=== PATIENT | female | born 1965 | race Caucasian/White ===

== ENCOUNTER 2018-07-18 00:50 | Outpatient (CLI) | payer BC, SELFPAY ==
[2018-07-18 07:39] LABS: Abs Immature Grans 0.01 k/cumm (0.0-0.09); Absolute Basophil Count 0.02 k/cumm (0.0-0.2); Absolute Lymphocyte Count 2.23 k/cumm (1.2-3.4); Absolute Monocyte Count 0.41 k/cumm (0.11-0.7); Absolute Neutrophil Count 3.38 k/cumm (1.2-6.7); Basophils % 0.3; Eosinophils % 3.2; HCT 41.3 % (36.0-46.0); HGB 14.1 g/dL (12.0-15.5); Immature Grans % 0.2; Lymphocytes % 35.7; Mean Corp. HGB Concentration 34.1 g/dL (32.0-36.0); Mean Corpuscular Hemoglobin 28.9 pg (27.0-33.0); Mean Corpuscular Volume 84.6 fL (80-95); Mean Platelet Volume 9.6 fL (8.0-11.0); Monocytes % 6.6; Platelet Count 266 x1000/uL (130-400); RBC 4.88 m/cumm (4.00-5.20); RBC Distribution Width 12.8 % (11.7-14.6); White Blood Cell Count 6.25 k/cumm (4.4-10.8)
--- NOTE | 2018-07-18 07:55 | DI.MAMMO_ITS ---
SYMPTOM/DIAGNOSIS: SCREENING, Z12.31 MAMMOGRAM: Mammograms were interpreted according to the usual protocol including computer analysis with CAD system, tomosynthesis and C view imaging. Comparison with prior examinations. Breast density B. No masses or microcalcifications are seen. There is nothing to suggest malignancy. IMPRESSION: Negative mammogram. Routine screening is recommended. Category I. MQSA ASSESSMENT OF FINDINGS: Negative. Category 1. Patient will receive a letter notifying them of these results. BI-RADS category B. There are scattered areas of fibroglandular density.
[2018-07-18 08:46] LABS: ALT 52 U/L (12-78); AST 24 U/L (15-37); Albumin 3.9 g/dL (3.4-5.0); Alkaline Phosphatase 95 U/L (46-116); Anion Gap 8.6 mmol/L (3-11); BUN 19 mg/dL (7-18); Bilirubin, Total 0.4 mg/dL (0.2-1.0); CO2 25.4 mmol/L (21.0-32.0); CREATININE 0.68 mg/dL (0.55-1.02); Calcium 9.4 mg/dL (8.5-10.1); Chloride 107 mmol/L (98-107); Cholesterol 146 mg/dL (50-200); Glucose 125 mg/dL (70-100); HDL Cholesterol 46 mg/dL (40-60); LDL CHOLESTEROL 90 mg/dL (<100); Potassium 4.4 mmol/L (3.5-5.1); Sodium 141 mmol/L (136-145); TSH (W/Ref FT4) 0.03 uIU/mL (0.358-3.74); Total Protein 7.3 g/dL (6.4-8.2); Triglyceride 61 mg/dL (30-150)
== END 2018-07-18 01:10 ==
PROVIDERS: PCP Nurse Practitioner; Visit Provider Nurse Practitioner
DX: Z12.31 Encounter for screening mammogram for malignant neoplasm of breast (principal); E03.9 Hypothyroidism, unspecified; Z13.220 Encounter for screening for lipoid disorders
CPT/HCPCS: 36415; 77063; 77067; 80053; 80061; 83721; 84439; 84443; 85025

== ENCOUNTER 2018-07-23 10:30 | Outpatient (CLI) | payer BC, SELFPAY ==
[2018-07-23 13:26] LABS: Hemoglobin A1C 5.6 % (4.5-6.2)
[2018-07-23 14:31] LABS: TSH (W/Ref FT4) 0.04 uIU/mL (0.358-3.74)
[2018-07-23 16:19] LABS: FREE T4 1.46 ng/dL (0.76-1.46)
== END 2018-07-23 10:50 ==
PROVIDERS: PCP Nurse Practitioner; Visit Provider Nurse Practitioner
DX: R73.01 Impaired fasting glucose (principal)
CPT/HCPCS: 36415; 83036; 84439; 84443

== ENCOUNTER 2018-09-19 01:46 | Outpatient (CLI) | payer BC, SELFPAY ==
[2018-09-19 08:46] LABS: TSH (W/Ref FT4) 0.11 uIU/mL (0.358-3.74)
[2018-09-19 09:03] LABS: FREE T4 1.38 ng/dL (0.76-1.46)
== END 2018-09-19 02:06 ==
PROVIDERS: PCP Nurse Practitioner; Visit Provider Nurse Practitioner
DX: E03.9 Hypothyroidism, unspecified (principal)
CPT/HCPCS: 36415; 84439; 84443

== ENCOUNTER 2018-12-11 02:00 | Outpatient (CLI) | payer BC, SELFPAY | END 2018-12-11 02:20 | PROVIDERS: PCP Nurse Practitioner; Visit Provider Nurse Practitioner | DX: R69 Illness, unspecified (principal) | CPT/HCPCS: 36415; 84443 ==

== ENCOUNTER 2019-03-17 07:00 | Outpatient (CLI) | payer BC, SELFPAY ==
[2019-03-17 13:54] LABS: ALT 49 U/L (12-78); AST 24 U/L (15-37); Albumin 3.9 g/dL (3.4-5.0); Alkaline Phosphatase 116 U/L (46-116); Anion Gap 12.5 mmol/L (3-11); BUN 24 mg/dL (7-18); Bilirubin, Total 0.3 mg/dL (0.2-1.0); CO2 23.5 mmol/L (21.0-32.0); CREATININE 0.72 mg/dL (0.55-1.02); Calcium 9.6 mg/dL (8.5-10.1); Chloride 105 mmol/L (98-107); Cholesterol 167 mg/dL (50-200); Glucose 140 mg/dL (70-100); HDL Cholesterol 44 mg/dL (40-60); LDL CHOLESTEROL 103 mg/dL (<100); Sodium 141 mmol/L (136-145); TSH (W/Ref FT4) 0.11 uIU/mL (0.358-3.74); Total Protein 7.4 g/dL (6.4-8.2); Triglyceride 98 mg/dL (30-150)
[2019-03-17 14:10] LABS: FREE T4 1.28 ng/dL (0.76-1.46)
== END 2019-03-17 07:20 ==
PROVIDERS: PCP Nurse Practitioner; Visit Provider Nurse Practitioner
DX: E03.9 Hypothyroidism, unspecified (principal); E66.9 Obesity, unspecified; I10 Essential (primary) hypertension
CPT/HCPCS: 36415; 80053; 80061; 83721; 84439; 84443

== ENCOUNTER 2019-09-04 08:54 | Day surgery (SDC) | payer BC, SELFPAY ==
[2019-09-04 09:14] VITALS: BP 151/88; PULSE 61; RESP 18; TEMP 36.8; O2SAT 97
[2019-09-04 09:18] VITALS: BP 151/88; PULSE 61; RESP 18; TEMP 36.8; O2SAT 97
[2019-09-04] MEDS: Lactated Ringers 1,000 ML 80 ML IV (09:25)
--- NOTE | 2019-09-04 10:51 | W.COLOREPORT ---
Date of service: 09/04/19 Time of Service: 10:51 Colonoscopy Report Date of procedure: 09/04/19 Pre-op diagnosis general: S. polyps Post-op diagnosis procedure note: other (normal ) Procedure: CE Surgeon: Amber Diehl Anesthesia proc note operative: GETA Estimated blood loss (mL): 0 Pathology: none sent Complications: None Disposition: same day Prep: Miralax/Dulcolax Retraction Time: 12 mins Procedure Description: After informed consent was obtained the patient was taken to the procedure room and placed in a left decubitous position. Monitors were applied and a time out was done. The patients name, date of , procedure, allergies to medications and metal in their body was reviewed. The patient was then sedated. Once sedated and comfortable a rectal exam was done. External exam was normal. Internal exam revealed a normal sphincter tone and no palpable masses. The scope was then introduced and retrofelexed. No internal hemorrhoids were identified. The scope was then advanced to the cecum without difficulty. The TI and appendiceal orifice were identified. The prep was good. The scope was then slowly retracted over 10 minutes back into the rectum. no polyps/AVM's/diverticuls. the muscoas was pink and healthy. The scope was removed and the patient was woken up and taken back to Same day surgery in stable condition. The patient tolerated the procedure well and there were no immediate complications. Follow up: The patient should follow up in 10 years unless they develop changes in bowel habits or other new gastrointestinal complaints.
--- NOTE | 2019-09-04 10:52 | W.PM.DSUDISC ---
Discharge Plan Disposition Patient Disposition: HOME Condition: Good Discharge Details Reason For Visit: colon scope Attending Provider: Amber Diehl Primary Care Provider: Madina Oshea Home Meds and New Rx's Prescriptions: Continued levothyroxine 300 mcg tablet 300 mcg PO DAILY Qty: 90 RF: 3 ibuprofen 600 MG tablet 600 mg PO Q6H PRN (Reason: Pain) Qty: 20 RF: 0 Discontinued polyethylene glycol 3350 17 gram/dose powder 238 g PO ONCE Qty: 238 RF: 0 bisacodyl [Dulcolax (bisacodyl)] 5 mg tablet,delayed release (DR/EC) 5 mg PO ONCE Qty: 4 RF: 0 Discharge Instructions Instructions: High Fiber Diet (GEN) Additional Instructions: Findings:normal Follow up:repeat in 10 yrs time Please call if you develop: fevers >101.5 Nausea or Vomiting Abdominal pain that is not transient DAY SURGERY UNIT POST COLONOSCOPY INSTRUCTIONS 1. Because there will be medication in your system for the next 24 hours, you may feel a little sleepy. Your coordination will be affected. Therefore: a. Do not drive or operate dangerous equipment for 24 hours. b. Do not drink alcohol beverages for 24 hours (not even beer). c. Plan to go home and rest for the day. 2. Generally there are no restrictions on your activity after a day or so has gone by, but you may feel a bit fatigued for a few days. 3 After you arrive home you may have a light meal and return to a normal diet as you can tolerate it without feeling sick to your stomach. 4. After surgery, you may feel pain or discomfort. This should be only transient, but if it persists please contact your doctor. 5. If there are any questions regarding the findings of your procedure, please feel free to contact your doctor. 6. If you are unable to contact your doctor with a problem, contact the hospital at [phone]. 7. Continue all your regular medications unless directed otherwise. I understand the above instructions and have no questions. Signature of Patient or Responsible Adult Escort Date/Time Name of Responsible Adult Escort Signature of Nurse Date/Time Activity:: no heavy lifting or strenuous activity x 24 hrs Diet:: sm light meals today Discharge Orders Discharge Orders: Discharge Order (Routine); Ordered 09/04/19 Ordered By: Amber Diehl DS: Diagnosis Discharge Diagnosis (1) Adenoma of large intestine: Status: Acute
[2019-09-04 11:17] VITALS: BP 127/73; PULSE 54; RESP 16; TEMP 36.7; O2SAT 96
== END 2019-09-04 11:45 | disposition home or self-care (01) ==
PROVIDERS: PCP Nurse Practitioner; Visit Provider Surgery
PROC: 0DJD8ZZ Inspection of Lower Intestinal Tract, Via Natural or Artificial Opening Endoscopic (ICD-10-PCS; CPT 45378; principal; 2019-09-04 09:15)
DX: Z12.11 Encounter for screening for malignant neoplasm of colon (principal); Z86.010 Personal history of colon polyps
CPT/HCPCS: 45378

== ENCOUNTER 2019-10-09 01:44 | Outpatient (CLI) | payer BC, SELFPAY ==
[2019-10-09 14:57] LABS: CREATININE 0.56 mg/dL (0.55-1.02)
[2019-10-09] MEDS: Omnipaque 350 MG/ML 100 ML BTL IJ (15:33)
--- NOTE | 2019-10-09 15:35 | DI.CT_ITS ---
EXAM: CT HEAD WO/W CLINICAL HISTORY: SEVERE DIZZINESS WITH PERSISTENT L PARASETHIA OF SKIN, R42, R20.2 TECHNIQUE: Before and after IV contrast. 100 cc Omnipaque 350 IV. COMPARISON: No exams were available for comparison FINDINGS: No intracranial hemorrhage, mass or infarct is seen. The ventricles are normal size. There is no ev idence skull fracture. No abnormal enhancing lesions are seen. The sinuses and mastoid air cells ap pear clear. The orbits are unremarkable. IMPRESSION: Negative head CT.
== END 2019-10-09 02:04 ==
PROVIDERS: PCP Nurse Practitioner; Visit Provider Nurse Practitioner Adult Health
DX: R42 Dizziness and giddiness (principal); R20.2 Paresthesia of skin; Z51.81 Encounter for therapeutic drug level monitoring
CPT/HCPCS: 70470; 82565; J3490

== ENCOUNTER 2020-06-22 18:17 | Outpatient (REF) | payer BC, SELFPAY ==
--- NOTE | 2020-06-22 08:45 | PAPFT_PTH ---
PATIENT: Martha Hansen LOC: [facility] U#:[id number] AGE/SX: 54/F ROOM: RE06/22/[address]: Madina Oshea APRN : 1965 BED: DIS: 06/22/2020 SPEC #: [id number] RECD: 06/22/20 18:26 STATUS: SELENA REQ #: [id number] RIGO: 06/22/20 08:[address]: Madina Oseha DEPT: [facility] Cytology RECD BY: Ai Jarrett Tissues: 1 - CX/ENDOCX FOR PAP SMEARS Procedures: PAP THIN PREP/UVM Screening HPV DNA PROBE Comments: [id number]
== END 2020-06-22 18:37 ==
LOC: LBN 18:17
PROVIDERS: PCP Nurse Practitioner; Visit Provider Nurse Practitioner
DX: Z12.4 Encounter for screening for malignant neoplasm of cervix (principal)
CPT/HCPCS: 88142; 87624

== ENCOUNTER 2020-06-28 00:43 | Outpatient (CLI) | payer BC, SELFPAY ==
--- NOTE | 2020-06-28 13:15 | DI.MAMMO_ITS ---
EXAM: MAMMO SCREENING CLINICAL HISTORY: screening,Z12.39 TECHNIQUE: Mammograms were interpreted according to the usual protocol including computer analysis w [email or web address] CAD system, tomosynthesis and C-view imaging. FINDINGS: The breasts are of moderate density. No dominant mass or clumped microcalcification is identified in either breast. The current examination is compared with previous examinations including July 07 and there is increased prominence of focal area of asymmetric density projected centrally in the left breast on CC view with question of architectural distortion at this site. This is not convincin gly seen on MLO view. No other significant change seen in comparison with prior studies. IMPRESSION: Question interval development left breast architectural distortion/asymmetric density, neoplasm not e xcluded. Correlation with cc and MLO spot compression views of the left breast and left breast ultra sound recommended. BI-RADS Category 0 - Assessment Incomplete: Need additional imaging evaluation Breast Density - Category B - Scattered areas of fibroglandular density
== END 2020-06-28 01:03 ==
PROVIDERS: PCP Nurse Practitioner; Visit Provider Nurse Practitioner
DX: Z12.31 Encounter for screening mammogram for malignant neoplasm of breast (principal); R92.2 Inconclusive mammogram
CPT/HCPCS: 77063; 77067

== ENCOUNTER 2020-06-30 01:07 | Outpatient (CLI) | payer BC, SELFPAY ==
--- NOTE | 2020-06-30 | DI.US_ITS ---
EXAM: MG MAMMO SCREEN CALL BACK UNI CLINICAL HISTORY: F/U MAMMO, INCREASED ASYMMETRIC DENSITY TECHNIQUE: Mammograms were interpreted according to the usual protocol including computer analysis w [employer] CAD system, tomosynthesis and C-view imaging. COMPARISON: FINDINGS: Additional mammographic views of the left breast and left breast ultrasound are interpreted in conjun ction. These examinations were obtained to evaluate questionable area of architectural distortion th e 12 o'clock position the left breast seen on recent mammogram. Additional mammographic views includ ing CC and MLO spot compression views show persistent questionable new architectural distortion and a symmetric density in comparison with multiple previous mammograms. No clearly defined mass is seen. Breast ultrasound shows no evidence mass or cyst in this area. IMPRESSION: Interval development of an area architectural distortion/asymmetric density, 12 o'clock position left breast, 4-5 cm from the nipple. Biopsy recommended, stereotactic technique suggested due to lack of visualization on ultrasound. BI-RADS Category 4 - Suspicious Abnormality: Biopsy should be considered Breast Density - Category B - Scattered areas of fibroglandular density
== END 2020-06-30 01:27 ==
PROVIDERS: PCP Nurse Practitioner; Visit Provider Nurse Practitioner
DX: Z12.39 Encounter for other screening for malignant neoplasm of breast (principal); R92.2 Inconclusive mammogram; N64.89 Other specified disorders of breast
CPT/HCPCS: 76642; 77063; 77067

== ENCOUNTER 2020-09-21 01:50 | Outpatient (CLI) | payer BC, SELFPAY ==
[2020-09-21 09:28] LABS: ALT 86 U/L (14-59); AST 36 U/L (15-37); Albumin 4.2 g/dL (3.4-5.0); Alkaline Phosphatase 116 U/L (46-116); Anion Gap 9.7 mmol/L (3-11); BUN 15 mg/dL (7-18); Bilirubin, Total 0.5 mg/dL (0.2-1.0); CO2 25.3 mmol/L (21.0-32.0); CREATININE 0.71 mg/dL (0.55-1.02); Calcium 9.7 mg/dL (8.5-10.1); Calculated LDL 93 mg/dL (<100); Chloride 105 mmol/L (98-107); Cholesterol 148 mg/dL (<200); Glucose 118 mg/dL (74-106); HDL Cholesterol 47 mg/dL (40-60); Potassium 4.5 mmol/L (3.5-5.1); Sodium 140 mmol/L (136-145); TSH (W/Ref FT4) 0.05 uIU/mL (0.36-3.74); Total Protein 7.4 g/dL (6.4-8.2); Triglyceride 42 mg/dL (<150)
[2020-09-21 09:33] LABS: Hemoglobin A1C 5.6 % (<5.7)
[2020-09-21 09:49] LABS: FREE T4 1.49 ng/dL (0.76-1.46)
== END 2020-09-21 02:10 ==
PROVIDERS: PCP Nurse Practitioner; Visit Provider Nurse Practitioner
DX: E03.9 Hypothyroidism, unspecified (principal); R73.01 Impaired fasting glucose
CPT/HCPCS: 36415; 80053; 80061; 83036; 84439; 84443

== ENCOUNTER 2020-11-16 01:28 | Outpatient (CLI) | payer BC, SELFPAY ==
--- NOTE | 2020-11-16 10:11 | DI.US_ITS ---
APPROVED REPORT EXAM: Comprehensive 2D, Doppler, and color-flow Echocardiogram Patient Location: Out-Patient Clinical Appeals Auditor: Luly Michel RDCS (AE) Indications: Borderline Cardiomegaly on CT, Coronary Atherosclerosis Other Information Study Quality: Adequate Conclusion Normal left ventricular chamber size and wall thickness. Estimated ejection fraction is 60%. There ar e no segmental wall motion abnormalities Normal right ventricular size and systolic function Both atria are normal in size There are no structural valvular abnormalities Mild mitral regurgitation Trace to mild tricuspid regurgitation, normal estimated right ventricular systolic pressure Wall motion Left Ventricle The left ventricle is normal size. The left ventricular systolic function is normal. The left ventric ular ejection fraction is within the normal range. There is normal left ventricular wall thickness. T here is normal LV segmental wall motion. There is no ventricular septal defect visualized. LVEF is 60 %. Right Ventricle The right ventricle is normal size. The right ventricular systolic function is normal. The RVSP is 23 .9 mmHg. Atria The left atrium size is normal. The right atrium size is normal. The interatrial septum is intact wit h no evidence for an atrial septal defect. Aortic Valve The aortic valve is normal in structure. There is no aortic valvular stenosis. No aortic regurgitatio n is present. Mitral Valve The mitral valve is normal in structure. No evidence of mitral valve stenosis. Mild mitral regurgitat ion. Tricuspid Valve The tricuspid valve is normal in structure. There is no tricuspid valve stenosis. Trace to mild tricu spid regurgitation. Pulmonic Valve The pulmonary valve is normal in structure. There is no pulmonic valvular stenosis. There is no pulmo mariano valvular regurgitation. Great Vessels The aortic root is normal in size. The ascending aorta is normal in size. Aortic arch is normal in ca liber. IVC is normal in size and collapses >50% with inspiration. Pericardium There is no pericardial effusion. 2D Dimensions IVSD d PLAX 1.01 cm F: 0.6-1.0 LV Vol A2C d MOD 101.0 mL LVPW d PLAX 1.04 cm F: 0.6 - 1.0 LV Vol A4C d MOD 109.2 mL LVID d PLAX 4.79 cm F: 3.8 - 5.2 LA vol/ BSA A2C s A-L 25.1 mL/m2 LVDs 3.20 cm F: 2.2 - 3.5 LA vol/ BSA A4C s A-L 19.2 mL/m2 Ao Root d 2.87 cm F: 2.7 - 3.3 LA Vol/ BSA Biplane s A-L 23.3 mL/m2 RA Area A4C 12.05 cm2 LA Area A4C s MOD 16.42 cm2 RA Vol/ BSA A4C s A-L 13.7 mL/m2 LA Area A2C s MOD 17.70 cm2 Ao Asc Diam d 3.15 cm F: 2.3 - 3.1 LV EF A4C MOD 62.8 % LV EF Teichholz 60.4 % LV EF A2C MOD 59.0 % LVEF (Barbosa's) 60.84 % F: 54 - 74 LV EF Biplane MOD 60.8 % LV Volume 78.09 mL F: 46 - 106 SV 65.18 mL LV Volume Index 35.82 mL/m2 F: 29 - 61 SV Index 29.83 mL/m2 LV Vol Biplane MOD 107.1 mL FS 32.20 % M-Mode TAPSE 2.19 cm (M/F) >1.7 LV Diastology MV E' medial 0.082 (>0.07 m/s) E/A Ratio 0.8 LV E/e MED 7.65 (<14) MV E Vmax 0.63 (0.4-1.3 m/s) MV E' lateral 0.082 (>0.1 m/s) MV A Vmax 0.75 (0.4-1.3 m/s) LV E/e LAT 7.65 (<14) MV E/A Ratio 0.82 MV E/E' medial 7.68 MV E/E' lateral 7.68 Aortic Valve LVOT Area 3.33 cm2 AoV Area Vmax 2.89 cm2 LVOT Vmax 1.21 m/s AoV Area/ BSA (Vmax) 1.32 cm2/m2 LVOT Mean Shahram. 0.89 m/s RICHA Mean Shahram. 3.01 cm2 LVOT Peak Grad 5.9 mmHg RICHA Mean Shahram. Index 1.38 cm2/m2 LVOT Mean Grad 3.4 mmHg LVOT VTI 0.274 m LVOT Diam s 2.05 cm AoV Vmax 1.40 m/s Velocity Ratio 0.86 AoV Mean Shahram. 0.99 m/s AoV Peak Grad 7.8 mmHg LVOT SV 91.37 mL AoV Mean Grad 4.3 mmHg AoV VTI 0.295 m AoV Area VTI 3.10 cm2 AoV Area/ BSA (VTI) 1.42 cm/m2 Mitral Valve MV DT 275 (160-240 msec) MV PHT 80 msec MV Area PHT 2.76 cm2 MV VTI 0.295 m MV VTI Annulus 0.278 m MV Area VTI 2.94 (4.0-6.0 cm2) Pulmonary Valve PV Vmax 0.94 (0.5-1.5 m/s) RVOT Peak Gr. 2.65 mmHg PV Peak Grad 3.5 mmHg RVOT Mean Gr. 1.35 mmHg PV Mean Grad 2.0 mmHg RVOT VTI 0.183 m PV VTI 0.219 m RVOT Vmax 0.81 m/s Tricuspid Valve TR Peak Grad 20.9 mmHg TR Vmax 2.29 m/s RA Pressure 3.00 mmHg RVSP (TR) 23.9 mmHg
== END 2020-11-16 01:48 ==
PROVIDERS: PCP Nurse Practitioner; Visit Provider Nurse Practitioner
DX: I08.1 Rheumatic disorders of both mitral and tricuspid valves (principal); I25.10 Atherosclerotic heart disease of native coronary artery without angina pectoris; I51.7 Cardiomegaly
CPT/HCPCS: 93306

== ENCOUNTER 2020-11-26 08:01 | Outpatient (CLI) | payer BC, SELFPAY ==
[2020-11-28 10:23] LABS: COVID-19 RT-PCR Result NEGATIVE (Negative)
== END 2020-11-26 08:21 ==
PROVIDERS: PCP Nurse Practitioner; Visit Provider Family Medicine
DX: Z11.52 Encounter for screening for COVID-19 (principal); Z01.810 Encounter for preprocedural cardiovascular examination
CPT/HCPCS: U0003

== ENCOUNTER 2020-11-29 01:21 | Outpatient (CLI) | payer BC, SELFPAY ==
--- NOTE | 2020-11-29 08:00 | DI.NM_ITS ---
APPROVED REPORT Exam: Exercise Treadmill Patient Location: Out-Patient Room/Bed: Stress Nurse: Zhane Ortega RN Ordering Provider:KYLE CORDOVA, Contact Number: [phone] BMI: 37.58 Baseline Rhythm: Sinus Rhythm Comment: occ. PVC Indications: Coronary atherosclerosis on CT. Medical History Medical History: Hypothyroidism, Borderline cardiomegaly, Coronary atherosclerosis, Cancer. Cardiac Medications: None. Allergies: No known drug allergies Cardiac Risk Factors: Obesity Previous Cardiac Procedures: None. Pretest Chest Pain Characteristics: None. Exercise History: Physically active Physical Disabilities: None. Lung Sounds: Clear to auscultation (diminshed bases) Heart Sounds: Regular Stress Test Details Test: Exercise stress testing was performed using a Stephan protocol. Nuclear Acquisition: Rest Tc-99m/Stress Tc-99m 1 day Rest Isotope: Tc-99m Sestamibi. Dose: 14.5 Date: 11/29/20 Injection Time: 1145 Stress Isotope: Tc-99m Sestamibi. Dose: 45.1 Date: 11/29/20 Injection Time: 1425 HR Resting HR Supine: 65 bpm Max Heart Rate (APMHR): 163.347078 bpm Resting HR Standin bpm Target HR (85% APMHR): 138.936828 bpm Max HR Achieved: 156 bpm % of APMHR: 95.71 Recovery HR: 77 bpm HR response to stress: Normal HR response to stress BP Resting BP Supine: 130/82 mmHg Resting BP Standin/96 mmHg Max BP: 194/96 mmHg Recovery BP: 172/86 mmHg BP response to stress: Normal blood pressure response to stress. ECG Resting ECG: Sinus Rhythm Ectopy: occ PVC. Stress ECG: Sinus Tachycardia ST Change: No significant ST segment changes noted Arrhythmia: increasing PVC burden in stage 4. Couplets, 3 beat run. Recovery ECG: Sinus Rhythm Recovery ST Change: No significant ST segment changes noted Clinical Reason for Termination: Dyspnea Stress Symptoms: Dyspnea Exercise duration: 10 min56 sec Highest Stage Reached: Stage 4: 4.2 mph at 16% grade. Exercise capacity: 13.34 METs Botello Treadmill Score: 10.3 Rate Pressure Product: 33213 Stress ECG Conclusion 1. The patient exercised for 11 minutes (13 METS). 2. The patient had no symptoms suggestive of ischemia 3. There is no evidence of ischemia on the ECG portion of the exam Botello Treadmill Score is 10.3 which is Low risk. Stress Test Summary STAGE Time (mins) Speed (mph) Grade (%) HR BP SYMPTOMS METS Supine 65 130/82 Standing 72 156/96 1 3 1.7 10 103 172/98 4.6 2 6 2.5 12 112 182/80 7 3 9 3.4 14 126 194/96 10.2 1 min recovery 111 192/72 3 min recovery 80 192/82 6 min recovery 77 172/86 MPI Conclusion The patient's ejection fraction was 57% with stress. There were no wall motion abnormalities. There was no evidence of ischemia on the imaging portion of the exam. This represents a normal SPECT stress test. Radiologist Interpretation Radiologist agrees with Cloth Printer Helper's Interpretation. Radiologist Interpretation by: Betsy Krishnan MD Interpretation Date/Time: 11/30/2020 16:08:08
== END 2020-11-29 01:41 ==
PROVIDERS: PCP Nurse Practitioner; Visit Provider Nurse Practitioner
DX: I25.10 Atherosclerotic heart disease of native coronary artery without angina pectoris (principal); E66.9 Obesity, unspecified
CPT/HCPCS: 78452; 93017

== ENCOUNTER 2021-10-20 02:24 | Outpatient (CLI) | payer BC, SELFPAY ==
[2021-10-20 07:41] LABS: HCT 42.6 % (36.0-46.0); HGB 14.3 g/dL (11.2-15.7); MCH 28.8 pg (27.0-33.0); MCHC 33.6 % (32.0-36.0); MCV 85.9 fL (80-95); MPV 9.5 fL (8.0-11.0); Platelet Count 235 10^3/uL (130-400); RBC 4.96 10^6/uL (3.93-5.22); RDW 12.3 % (11.7-14.6); RDW-SD 38.5 fL; WBC 6.72 10^3/uL (4.4-10.8)
[2021-10-20 09:11] LABS: ALT 76 U/L (14-59); AST 34 U/L (15-37); Alkaline Phosphatase 133 U/L (46-116); Anion Gap 8.8 mmol/L (3-11); BUN 16 mg/dL (7-18); Bilirubin, Total 0.5 mg/dL (0.2-1.0); CO2 26.2 mmol/L (21.0-32.0); CREATININE 0.7 mg/dL (0.55-1.02); Calcium 9.7 mg/dL (8.5-10.1); Calculated LDL 105 mg/dL (<100); Chloride 104 mmol/L (98-107); Cholesterol 165 mg/dL (<200); Glucose 138 mg/dL (74-106); HDL Cholesterol 47 mg/dL (40-60); Potassium 4.1 mmol/L (3.5-5.1); Sodium 139 mmol/L (136-145); TSH (W/Ref FT4) 3.59 uIU/mL (0.36-3.74); Total Protein 7.3 g/dL (6.4-8.2); Triglyceride 68 mg/dL (<150)
== END 2021-10-20 02:25 | disposition home or self-care (01) ==
LOC: LBO 02:24
PROVIDERS: PCP Nurse Practitioner; Visit Provider Nurse Practitioner
DX: I89.0 Lymphedema, not elsewhere classified (principal); R73.01 Impaired fasting glucose; E03.9 Hypothyroidism, unspecified
CPT/HCPCS: 36415; 80053; 80061; 85027; 83036; 84443

== ENCOUNTER → 2022-07-27 10:03 | Outpatient (CLI) | payer BC, SELFPAY ==
--- OUTSIDE RECORDS SUMMARY | 2022-07-27 10:13 | XMS_ITS | Encounter Summary ---
:1965 Author Organization [facility] [place] [address] Care Team Providers Name Role Phone Madina Oshea APRN Primary Care Provider Reason for Visit Physical Therapy (Routine) - Closed Specialty Diagnoses / Procedures Referred By Contact Refer red To Contact Physical Therapy Diagnoses S/P radiotherapy Janay Burt MD [facility] Pt Rehab [facility] D R [facility] RADIATION ONCOLOGY [address] [phone] Phone: Fax: Referral ID Status Reason Start Date Expiration Date Visits V isits Requested Authorized [id number] Closed Evaluate and 05/30/2021 05/30/2022 60 60 Treat Encounter Details Date Type Department Care Team Description 07/08/2021 Office Visit Physical Therapy at Eva Milan, PT Decreased ROM of left shoulder; [facility] Swelling; [facility] Pain of left breast [facility] PHYS[facility] MEDICINE & [place], [place] [facility] [id number] [place] [address] Social History Tobacco Use Types Packs/Day Years Used Date Never Smoker Smokeless Tobacco: Never Used Alcohol Habits Answer Date Recorded How often do you have a drink containing alcohol? Not asked How many drinks containing alcohol do you have on a typical Not asked day when you are drinking? How often do you have six or more drinks on one occasion? No t asked Comment: rare 07/23/2020 Sex Assigned at Date Recorded Not on file documented as of this encounter Miscellaneous Notes Initial Evaluation - Ny Milan, PT - 07/08/2021 12:00 PM EDT Images from the original note were not included. PHYSICAL THERAPY EVALUATION Date of Exam/First treatment: 07/08/21 Date of Onset : ~ 10/19/20 Referring Provider: Janay Burt MD Primary Insurance: Payor: [employer] [place] / Plan[place] VHP / Product Type: *No Product type* / Diagnosis and pertinent co-morbidities: secondary lymphedema left breast, pain left breast and decreased rom total treatment time: 60 minutes total timed code treatment: 60 minutes eval and home management CURRENT HISTORY: Martha Hansen is a 55 y.o. female s/p lumpectomy for ILC, gr 1, ER+NJ+, Her2 neg, * 0/2 nodes positive 07/23/20. No complications. S/p xrt (10/19/20) . Referred to PT for ??Tighness UOQ L breast & lymphedema LIQ L bresat. Patient Active Problem List Diagnosis Date Noted ??? Malignant neoplasm of overlapping sites of left breast in female, estrogen receptor positive 07/05/2020 Adjuvant Treatment pending: Radiation Social: with 2 sons and a daughter. Pt. lives in [place], [place] Work: works for [employer] work Function/exercise history: Walking distance/frequency: aerobic -3x/week (walk or run on treadmill) Other exercise: boot camp (weights, jumping jacks, kettle bells)-3x/day Hobbies:none Pain: Discomfort 5/10 FUNCTIONAL LIMITATIONS: On a difficulty scale with 0 being unable to perform an activity, and 10 being able to perform at a pre injury level she rates 9/10. CLINICAL FINDINGS: Posture: Left sl shoulder sl protracted Active Range of motion: supine Right 07/08/21 Left 07/08/21 Sh flexion 170 165* Sh abduction 170 165* Sh ER 90 90* Sh IR T7 T7 Strength: n/t Palpation/inspection: lymphedema left breast, no fibrosis Flexibility: decreased at: pectoralis CLINICAL EVALUATION AND DIAGNOSIS: 55 yo female s/p left lumpectomy 0/2 LNP followed by xrt. PT with Decreased rom sec to xrt and secondary lymphedema. Pt would benefitfrom PT for CDT left breast and rom/stretching left shoulder/chest to restore function and decreasedpain. Clinical presentation: Stable Evolving Unstable x Notes: Eval Pt education MLD left breast using right axilla and left inguinal nodes. MFR left pecs Instruction in stretching left pecs and MFR using Dycem-snow angels and Torso Twist Discussed [employer] department store sports bra. I also recommended a post lumpectomy pad. Clinical decision making of moderate complexity using standardized patient assessment instrument andmeasurable assessment of functional outcome. The patient's rehabilitation potential is good. GOALS: Therapy Short Term Goals: 4 weeks 1. Increase ROM left shoulder 2. Ind and consistent with HEP 3. Decrease swelling, decrease pain left breast Therapy O And M Supervisor Goals: 6 weeks 1. Full functional use of UE without discomfort 2. Decrease pain INITIAL TREATMENT INCLUDED: Plan: FU in ~ 1 month for MLD, there x and manual therapy Treatment: MLD, compression, there ex Frequency and Duration: FU x 2-4 session then wean as approp The plan has been discussed with the patient and she has agreed with it. [place] MILAN, PT documented in this encounter Plan of Treatment Scheduled Referrals Name Type Priority Associated Diagnoses Order S chedule Referral to Outpatient Referral Routine S/P radiotherapy Orde red: Physical Therapy 05/30/2021 documented as of this encounter Visit Diagnoses Diagnosis Decreased ROM of left shoulder Swelling Edema Pain of left breast Mastodynia documented in this encounter Care Teams [employer] Black Trainer Relationship Specialty Start Date End Date Madina Oshea APRN PCP - General Internal Medicine 07/09/[address] [place] [address] documented as of this encounter
--- OUTSIDE RECORDS SUMMARY | 2022-07-27 10:13 | XMS_ITS | Encounter Summary ---
:1965 Author Organization [place] [address] Care Team Providers Name Role Phone Madina Oshea APRN Primary Care Provider Reason for Visit Reason Comments Genetic Evaluation Consultation (Routine) - Closed Specialty Diagnoses / Procedures Referred By Contact Refer red To Contact Hematology and Diagnoses Malignant neoplasm of overlapping sites of left breast in female, estrogen receptor positive Arjun Saleh MD [facility] [place] Hem Onc 3k Oncology [facility] [address] HEMATOLOGY/ONCOLOGY [place]. [id number] [place] [address] Referral ID Status Reason Start Date Expiration Date Visits V isits Requested Authorized [id number] Closed Consult, 08/12/2020 08/12/2021 1 1 Test & Treat Encounter Details Date Type Department Care Team Description 10/18/2020 TH Visit Hematology and [facility], Malignant n eoplasm of overlapping sites of left breast in female, estrogen receptor positive; (TeleHealth) Oncology at [facility] Family history of ovarian cancer [facility] [address] HEMATOLOGY/ONCOLO [id number] [place] DEPT. [phone] [place], [place] [address] Social History Tobacco Use Types Packs/Day Years [...] on file documented as of this encounter Progress Notes Lali [facility] - 10/18/2020 2:00 PM EST Martha Hansen was seen by DELFINA Dsouza in consultation at the request of Arjun Saleh to advise regarding possible heritable predisposition to cancer. Due to [employer] restrictions this was a phone consult. I spent 23 minutes of this telephone encounter with the patient gathering medical and family historyand discussing the likelihood of a genetic predisposition to cancer and the option of genetic testing. Reason for referral/Chief complaint Personal history of breast cancer and family history of ovarian and breast cancer. 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 Treated with lumpectomy. Martha has one more radiation treatment and then will begin anti-hormone therapy. Age at 1st menses: 11 Age at 1st child: 25 Menopause status: post menopause Oral contraceptive use: used her teens and 20's for about 10 years Hormone replacement therapy use: none Current cancer screening: colonoscopy at ages 48 and 53. A few polyps were seen on first exam. None found on 2nd so follow-up recommended in 10 years. Family History Problem Relation Age of Onset ??? Breast Cancer Paternal Aunt 55 ??? Bladder Cancer Father 74 ??? Ovarian Cancer Paternal Grandmother at 49 ??? Lung Cancer Paternal Uncle Per Ancestry testing, ethnic background includes: [place] Verdean, Pashto, Georgian, Vincentian Genetic risk assessment Approximately 10% of breast cancer is due to an identifiable inherited pre- disposition. Based on theVerson (published 07/13/2020) National Comprehensive Cancer Network (NCCN) Hereditary Cancer Testing Criteria, testing is clinically indicated in the following scenarios for individuals with a pers onal history of breast cancer: 1. Diagnosed at age 45 or younger 2. Diagnosed at age 46-50 with: ??? Unknown or limited family history or ??? 2nd breast cancer diagnosed at any age or ??? Close blood relative with breast, ovarian, pancreatic, or prostate cancer 3. Diagnosed at 60 or younger with triple-negative breast cancer 4. Diagnosed at any age with: ??? Ashkenazi Quaker ancestry or ??? Close blood relative with breast cancer at age 50 or younger or ovarian, pancreatic, metastatic , intraductal/cribriform hitology, or high-or very-high risk group prostate cancer at any age or ??? 3 or more total diagnoses of breast cancer in the patient and/or close blood relative. Based on personal history of breast cancer and a paternal grandmother with ovarian cancer the likelihood that Martha would be found to have a mutation in a cancer predisposition gene is high enough to offer the option of genetic testing. We discussed the following panel genetic test options: 1.[employer] Breast and Manager Respiratory Care Guidelines-Based Panel: Analyzes 20 genes including BRCA1, BRCA2, and mismatch repair genes related to Jerome syndrome that are known to increase the risk for breast and/or gynecologic cancers. Guidelines regarding screening and medical management are available for all of thegenes included on the panel. 2. [employer] Common Hereditary Cancers Panel: Analyzes 47 genes associated with increased risk for breast, gynecologic and gastrointestinal cancers. While many of the genes on this panel have specific guidelines regarding screening and medical management, there are some for which less information is known and therefore specific guidelines are not available. 3. [employer] Multi-Cancer Panel: Analyzes 84 genes associated with increased risk for cancers in eight major organ systems including breast, gynecologic, gastrointestinal, endocrine, genitourinary, skin, brain/nervous system, sarcoma and hematologic. While many of the genes on this panel have specificguidelines regarding screening and medical management there are some for which less information is known and therefore specific guidelines are not available. We reviewed that the advantage of choosing a larger panel is that you learn more information about your potential risk for cancer. However the disadvantage is that there is a chance of an incidental finding of learning about an increased risk for a cancer that has not been seen in the family. In addition, you may learn about an increased risk for a cancer for which advice is not available regarding how to prevent the cancer or detect it early. These findings could lead to increased anxiety. It is also important to note that the more genes analyzed, the higher the chance of identifying a variant of uncertain significance (VUS). The VUS classification means that there is not enough clinicalor research information to determine whether the change is associated with an increased risk of cancer or is a normal variation with no medical implications. For some individuals, finding uncertain results can lead to increased anxiety. Martha plans to consider the above options and will contact me when she is ready for testing. She is aware that there is no difference in cost for the 3 panels and that testing can be accomplished by obtaining a saliva sample at home. Once the lab receives the sample,testing will take up to 3 weeks. Martha will be contacted via telephone once her test results become available. If positive, we will offer a follow-up appointment. At that time, we will discuss with Martha the implications that this test result may have for her, as well as her family members. We will also provide Martha with screening guidelines for cancer prevention andearly detection, as well as answer any questions she may have. documented in this encounter Plan of Treatment Scheduled Referrals Name Type Priority Associated Diagnoses Order S chedule Referral to Outpatient Referral Routine Malignant neoplasm of Ordered: Familial Cancer overlapping sites of 06/2020 left breast in female, estrogen receptor positive documented as of this encounter Visit Diagnoses Diagnosis Malignant neoplasm of overlapping sites of left breast in female, estrogen receptor positive Family history of ovarian cancer Family history of malignant neoplasm of ovary documented in this encounter Care Teams Chandelier Maker Relationship Specialty Start Date End Date Madina Oshea APRN PCP - General Internal Medicine 07/09/[address] [place] [place] [address] documented as of this encounter
--- OUTSIDE RECORDS SUMMARY | 2022-07-27 10:13 | XMS_ITS | Clinical Summary ---
:1965 Author Organization [facility] [place] [address] Care Team Providers Name Role Phone Madina Oshea APRN Primary Care Provider Allergies No known active allergies Medications Medication Sig Dispensed Refills Start Date End Date Status levothyroxine Take 300 mcg by 0 Active (Synthroid) 100 mcg mouth daily. Tablet nystatin (MYCOSTATIN) Apply 1 drop 0 06/22/2020 Active Cream topically as needed. emollient base (CREAM Apply topically. 0 Active BASE TOP) Jeans Cream. Apply to area of radiation twice a day but no less than 2 hours before a treatment. ibuprofen Take by mouth 0 03/30/2017 Activ e (Advil;Motrin) 600 mg every 6 hours as Tablet needed. anastrozole (Arimidex) Take 1 tablet by 90 tablet 3 02/28/2022 Active 1 mg mouth daily. TabletIndications: Started on Malignant neoplasm of November 02, 2020. overlapping sites of Please dispense 90 left breast in female, at a time. estrogen receptor positive Active Problems Problem Noted Date Lymphedema of breast 02/28/2022 Family history of breast cancer in first degree relati ve 02/28/2022 Hypothyroidism (acquired) 02/27/2022 Coronary atherosclerosis 02/27/2022 Malignant neoplasm of central portion of left breast i n female, estrogen 07/05/2020 receptor positive Cancer Staging: Clinical stage from 07/31: Stage IA (cT1c, cN0, cM0, G1, ER+, VT+, HER2-) - Signed by Arjun Saleh MD on 07/31/2020 Pathologic stage from 08/05/2020: Stage I A (pT1c, pN0(sn), cM0, G1, ER+, VT+, HER2-) - Signed by Arjun Saleh MD on 08/05/2020 Overview: Dx: 07/05/20 [facility] presented on screening mammo graphy June 28, 2002 with increased prominence of a focal area of asymmetric density centrally in the left breast with a question of architectural distortion. T he right breast was unremarkable and the breasts were of scattered density. Diagnostic imaging on June 30 showed a highly suspicious 1.1 cm hypoechoic area with architectural distortion at 12:00, 4.5 cm from the left nipple. An ultrasound-g uided biopsy on July 05 showed a low grade invasive carcinoma with ductal and lobular features, strongly estrogen receptor positive in greater than 90% of cells , strongly progesterone receptor positiv e in 80-90% of cells, and Her-2 unamplified, with a Her-2:CEP-17 ratio of 1.0 and 1.9 copies of Her-2 per cell. A breast MR on July 09 showed a 4.1 cm irregul ar area of nonmass enhancement at the si te of the biopsy clip at 12:00, 4-8 cm from the left nipple. There were no morphologic abnormalities or areas of abnormal parenchymal enhancement on the right, an d there was no internal mammary or axill keyla adenopathy. On July 23 she underwent a needle localization excision and sentinel node biopsy. There was a 15 mm low grade (SBR=5) invasive lobular carcin ness, excised with a less than 1 mm anter ior margin, with lobular carcinoma in situ, but without ductal carcinoma in situ or lymphovascular invasion. Two sentinel nodes were negative. Lichen sclerosus et atrophicus 09/20/2016 SALOMON (nonalcoholic steatohepatitis) 11/03/2014 Immunizations Name Administration Dates Next Due Influenza Vaccine PF, Quadrivalent 08/16/2020 Family History Medical History Relation Comments Bladder Cancer Father Breast Cancer Paternal Aunt Ovarian Cancer Paternal Grandmother at 49 Lung Cancer Paternal Uncle Breast Cancer Sister Relation Status Comments Father Paternal Aunt Paternal Grandmother Paternal Uncle Sister Social History Tobacco Use Types Packs/Day Years [...] Assigned at Date Recorded Not on file Last Filed Vital Signs Vital Sign Reading Time Taken Comments Blood Pressure 131/69 02/28/2022 12:49 PM EDT Pulse 63 02/28/2022 12:49 PM EDT Temperature 36.3 ??C (97.3 ??F) 02/28/2022 12:49 PM EDT Respiratory Rate 18 02/28/2022 12:49 PM EDT Oxygen Saturation 98% 02/28/2022 12:49 PM EDT Inhaled Oxygen Concentration - - Weight 105.8 kg (233 lb 3.2 oz) 02/28/2022 12:49 PM EDT Height 173.4 cm (5' 8.27) 02/28/2022 12:49 PM EDT Body Mass Index 35.18 02/28/2022 12:49 PM EDT Plan of Treatment Health Maintenance Due Date Last Done Comments Covid-19 Vaccine (#1) 1968 HIV screen 1981 Hepatitis C Screening 1981 Lipid Screening 1981 Tdap adult 1982 Tetanus vaccine 1982 HPV test 1993 PAP Smear 1993 Breast Cancer Share Decision Needed 2003 Colonoscopy 2008 Zoster vaccine (1 of 2) 2013 Advance Directive 2018 Influenza (Flu) vaccine (1 of 1 - 07/06/2022 08/16/2020 Influenza standard series) Diabetes Screening (HgbA1C or Glucose) 07/15/2023 0 Breast Cancer screening 02/29/2024 02/28/2022, 02/24/2021 Medical Devices Implanted Type Area Wire Steward Device Shelf Model / Identifier Expiration Serial / Lot Date Breast Clip-07/05/2020 Breast Left: [employer] - [id number] [employer] ULTRACOR BREAST TISSUE MARKER ULTRASUND ENHANCED JOB / Implanted: 07/05/2020 by Ashok Simpson MD (Quantity not on file) Clip Breast / [id number] Description: JOB Insurance Payer Benefit Plan Subscriber ID Effective Dates Phone Address Type / Group [facility] [id number] 2018-Darius [phone] [address] [facility] [id number] Care Teams Retail Marketing Executive Relationship Specialty Start Date End Date Madina Oshea, COCKTAIL WAITRESS PCP - General Internal Medicine 07/09/[address] [place] [address]
--- OUTSIDE RECORDS SUMMARY | 2022-07-27 10:13 | XMS_ITS | Encounter Summary ---
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 [address] Referral ID Status Reason Start Date Expiration Date Visits V isits Requested Authorized [id number] Closed Specialty 08/12/2020 02/10/2022 1 1 Service Requested Consultation (Routine) - Closed Specialty Diagnoses / Procedures Referred By Contact Refer red To Contact Hematology and Diagnoses Malignant neoplasm of overlapping sites of left breast in female, estrogen receptor positive Arjun Saleh MD [facility] Hem Onc 3k Oncology [facility] [address] HEMATOLOGY/ONCOLOGY [place], [place]PT. 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 [phone] [place], [place] [address] Social History Tobacco Use Types [...] on file documented as of this encounter Last Filed Vital Signs Vital Sign Reading Time Taken Comments Blood Pressure 185/86 08/12/2020 12:59 PM EDT Pulse 84 08/12/2020 12:59 PM EDT Temperature 35.8 ??C (96.4 ??F) 08/12/2020 12:59 PM EDT Respiratory Rate 18 08/12/2020 12:59 PM EDT Oxygen Saturation 98% 08/12/2020 12:59 PM EDT Inhaled Oxygen Concentration - - Weight 108.1 kg (238 lb 6.4 oz) 08/12/2020 12:59 PM EDT Height 171.5 cm (5' 7.52) 08/12/2020 12:59 PM EDT Body Mass Index 36.77 08/12/2020 12:59 PM EDT documented in this encounter Progress Notes Riya Lomas RN - 08/12/2020 1:00 PM EDT Comprehensive Breast Program (CBP) Nurse Navigator Note Martha Hansen is a 54 y.o. female with left breast cancer s/p partial mastectomy and SLN excision on 07/[address] Duenas. I met with the patient and her , Armand, after her medical oncology consultation. Martha states she is doing well overall and healing. She discussed the possibility of Oncotype DX test with Dr. Saleh and is not sure it's really needed, at least that was her 's understandingof the discussion. Should she decided to proceed with Oncotype DX she will let Dr. Saleh know. She plans consult with Dr. Burt in [facility] next week and also has post operative f/u next week with Dr. Duenas. She has our contact information. Arjun Saleh MD - 08/12/2020 1:00 PM EDT Subjective: Patient ID: Martha Hansen is a 54 y.o. female with Stage II breast cancer, referred by Dr. Duenas to discuss adjuvant therapy. HPI Ms. Hansen presented on screening mammography June 28, 2002 with increased prominence of a focal area of asymmetric density centrally in the left breast with a question of architectural distortion. The right breast was unremarkable and the breasts were of scattered density. Diagnostic imaging on June 30 showed a highly suspicious 1.1 cm hypoechoic area with architectural distortion at 12:00,4.5 cm from the left nipple. An ultrasound-guided biopsy on July 05 showed a low grade invasive carcinoma with ductal and lobular features, strongly estrogen receptor positive in greater than 90% of cells, strongly progesterone receptor positive in 80-90% of cells, and Her-2 unamplified, with a Her-2:CEP-17 ratio of 1.0 and 1.9 copies of Her-2 per cell. A breast MR on July 09 showed a 4.1 cm irregular area of nonmass enhancement at the site of the biopsy clip at 12:00, 4-8 cm from the left nipple. There were no morphologic abnormalities or areas of abnormal parenchymal enhancement on the right, and there was no internal mammary or axillary adenopathy. On July 23 she underwent a needle localization excision and sentinel node biopsy. There was a 15 mm low grade (SBR=5) invasive lobular carcinoma, excised with a less than 1 mm anterior margin, with lobular carcinoma in situ, but without ductal carcinoma in situ or lymphovascular invasion. Two sentinel nodes were negative. Martha has minor pain in the left axilla and numbness in the lateral left breast. Her range of motionin the left arm is normal. Review of Systems She denies depression, a cough, shortness of breath, chest pain, nausea, vomiting,diarrhea, constipation, headaches, double vision, skin rashes, pain, redness, or swelling in her lower extremities, or any sites of joint or skeletal pain. The remainder of her review of systems is negative. Past Medical History: She was treated for hepatitis C in the early 1999s with interferon and ribavirin and the virus was cleared Hypothyroidism Lumbar disc herniation Family History: Her paternal grandmother was diagnosed with ovarian cancer and at the age of 49 A paternal aunt was diagnosed with breast cancer in her 50's Her father was diagnosed with bladder cancer and with small cell lung cancer Her paternal uncle was diagnosed with lung cancer She has four first cousins on her fathers side, all in their 60's, and none of them have been diagnosed with cancer Social History: She never smoked, and she has less than seven drinks a week She lives in [facility] with her Armand She works for [employer] She has two sons and one daughter Joint Filler History: She had menarche at age 11 She is , and her oldest child was born when she was 26 She had uterine ablations done in 2006 and 2008, and she has had amenorrhea since 2008. She has not had any vaginal spotting She has had episodic hot flashes and sweats over the past several years Objective: Physical Exam Vitals signs reviewed. Constitutional: Comments: Her BMI is 36.8, and her BP is 185/86 HENT: Mouth/Throat: Mouth: Mucous membranes are moist. Pharynx: Oropharynx is clear. Neck: Comments: She has no cervical or supraclavicular adenopathy Cardiovascular: Rate and Rhythm: Normal rate and regular rhythm. Pulmonary: Breath sounds: Normal breath sounds. No wheezing or rales. Comments: There are no masses within the left breast. There is a 4 cm scar along the superior areolar border on the left, as well as a left axillary scar. There are no masses within the left axilla. There are no masses within the right breast or axilla. Abdominal: Palpations: There is no mass. Tenderness: There is no abdominal tenderness. There is no guarding. Comments: No hepatomegaly Musculoskeletal: Comments: She has no pain on percussion over the spine, sternum, ribs, or hips. No peripheral edema, erythema, or warmth Today's estradiol is <5 with an FSH of 37.5. Labs from July 15, 2020 include a WBC count of 7.1, Hgb 14.2, Hct 42.3, platelets 273, ANC 3580, Na 140, K 3.5, Cl 103, bicarb 26, BUN 15, creatinine 0.76, Ca 10.4, albumin 4.5, bili 0.4, alk phos97, AST 28, and ALT 48. Assessment and Plan: Ms. Hansen is a 54 year old woman with a 1.5 cm low grade invasive lobular carcinoma, node negative, estrogen and progesterone receptor strongly positive, and Her-2 negative. She has no clinical evidence of metastatic disease and there is no indication for advanced imaging with a CT, PET scan, or bone scan. Her prognosis is excellent. The model at cancermath.net shows a 6% 15-year risk of breast cancer mortality without any systemic adjuvant therapy, a 4.1% 15 year risk of breast cancer mortality with the use of five years of an aromatase inhibitor, and a 2.7% 15-year risk of breast cancer mortality with the use of TC chemotherapy followed by five years of an aromatase inhibitor. I discussed Oncotype testing. Oncotype testing is approved for patients with node negative, hormone receptor positive breast cancer, to help obtain an individualized estimate of the risk of breast cancer recurrence. This information might be helpful in judging the absolute benefit from chemotherapy better than the population-based models. I then discussed what the Oncotype test would tell us. WithoutOncotype testing, I would recommend treating her with an aromatase inhibitor, so the only way the Oncotype test would help us is if she has a Recurrence Score of 26 or greater. Based on the [facility] model on the [facility] website, a Recurrence Score of 31 leads to a 9% risk of distant recurrence at ten years with five years of an aromatase inhibitor, and TC chemotherapy would be expected to reduce her ten yearrisk of distant recurrence by 3.4%. With a Recurrence Score of 40, her ten year risk of distant recurrence would be 10% with five years of an aromatase inhibitor, and TC chemotherapy would be expected to reduce her ten year risk of distant recurrence by 3.8%. I then described the use of docetaxel and cyclophosphamide chemotherapy, which is our standard chemotherapy regimen for node negative ER+ Her-2negative breast cancer. Oncology performed a 1000 patient randomized study of four cycles of docetaxel (75 mg/m2) and cyclophosphamide (600 mg/m2) vs adriamycin and cyclophosphamide (Lawrence BRYAN, et al. JCO [id number], 2009) in patients with operable Stage I-III breast cancer. Lawrence found a 81% seven year DFS in the TC arm vs 75% in the AC arm, with a 5% improvement in overall survival at seven years. The side effects of TC would include a small risk of infusional reactions, mild to moderate nausea and vomiting, alopecia, swelling of the extremities, a risk of fever or infection with low blood counts, numbness or tingling of the fingers and toes which may be permanent, cracking or lysis of the nails of the fingers or toes, and a 0.1% risk of preleukemia or leukemia. Longer term complications of chemotherapy may include fatigue, arthralgias, and loss of cognitive function. Given the risk of febrile neutropenia with this regimen, we would arrange for next day Neulasta via On Pro for primary prevention of febrile neutropenia. If she is to take chemotherapy, I will ask our hepatologists if she is at risk for reactivation of her hepatitis C with chemotherapy. With a low grade tumor with strong expression of both estrogen and progesterone receptors, it is highly unlikely that she would have a Recurrence Score of 26 or greater, and impossible for her to have a Recurrence of greater than 40. If she would not accept chemotherapy for a 3.8% absolute reduction in her risk of breast cancer recurrence over ten years, then there is no point in ordering the test. Itold her that agreement to send off the test does not commit her to accept chemotherapy. She will think about whether to get the test done, and she will let me know her decision tomorrow. If she proceeds with chemotherapy, I will try to get started within three to four weeks, and the radiotherapy would wait until three weeks after completion of her chemotherapy. If she declines Oncotype testing, then she can proceed with her breast radiotherapy. She will meet with Dr. Burt on August 16. I will ask her to start the aromatase inhibitor anastrozole two weeks after the completion of her radiotherapy. We confirmed today that she is postmenopausal. I discussed the potential side effects of anastrozole, which may include hot flashes, night sweats, mood swings, vaginal dryness, arthralgias, nausea, and loss of bone density. I would follow her bone density with Dexa scans every two years, and I would have her start a bisphosphonate if her T scores should fall below -2.0. Anastrozole may also increase her cholesterol level by about 10% and it may increase her blood pressure. I discussed management of hot flashes and arthralgias associated with anastrozole. I would recommend genetic testing because of the ovarian and breast cancer history on her father's side of the family, and she can inherit a breast cancer susceptibility gene from her father. I will put in a referral. I will contact her during the final week of her radiotherapy to review this discussion and I will prescribe the anastrozole through her local pharmacy. I will plan on seeing Martha next in followup in six months (if she does not take chemotherapy), I will order a baseline Dexa scan at that time, and I will coordinate those appointments with Dr. Duenas and with her mammograms. She has a written summary of my recommendations along with my business card, and I answered her questions. Arjun Saleh MD film developer in Hematology-Oncology Cc: LIYAH Olmedo Cc: Barbie Duenas MD Cc: Janay Burt MD documented in this encounter Plan of Treatment Scheduled Referrals Name Type Priority Associated Diagnoses Order S chedule Referral to Outpatient Referral Routine Malignant neoplasm of Ordered: Familial Cancer overlapping sites of 06/2020 left breast in female, estrogen receptor positive documented as of this encounter Procedures Procedure Name Priority Date/Time Associated Diagnosis Comme nts HC VENIPUNCTURE Routine 08/12/2020 2:33 PM Malignant neoplasm Results for this EDT of overlapping sites procedu re are in of left breast in the result s female, estrogen section. receptor positive HC FSH ASSAY, SERUM Routine 08/12/2020 2:33 PM Malignant neopl asm Results for this EDT of overlapping sites procedu re are in of left breast in the result s female, estrogen section. receptor positive documented in this encounter Results DXA Central Spine, Hip, and/or Whole Body (Generic) (02/24/2021 9:54 AM EDT) Anatomical Region Laterality Modality C-spine, Hip N/A Other Specimen (Source) Anatomical Location Collection Method / Collectio n Time Received Time / Laterality Volume Impressions 02/25/2021 9:29 AM EDT Measurements meet WHO criteria for osteopenia. Estimating Fracture Risk: ? The relationship between bone mineral de nsity (BMD) and risk of fracture is well established. As BMD decreases, risk incr eases. Quantifying risk is difficult and is usually limited to estimation of the relative risk - a term which may have limited value when trying to discuss an individual's risk. Estimating the absolute risk for a patient requires an understanding of the incidence rate in a given population and consideration of mu ltiple, partially independent, risk factors in addition to BMD. ? The World Health Organization (WHO) has developed a fracture risk prediction tool that calculates a ten-year risk of major osteoporotic fracture based on femoral neck bone density measurements a nd nine clinical risk factors for individuals who have not been treated fo r osteoporosis. This is available through an interactive web-based interfa ce (http://www.shef.ac.uk/FRAX/) and can be used to estimate a given patient's ab solute risk of major osteoporotic fracture or hip fracture over the next 1 0 years. These estimates may prove useful when discussing risk with a patie nt. It is important, however, to understand the tool's limitations and ho w a given individual's risk might differ from the tool's estimate. The tool does not take into account the dose-response associated with most risk factors. For e kody, the significant increase in risk associated with multiple prior fractures compared to a single prior fracture is not taken into account. Similarly, the l ocation of a previous fracture, the amount of glucocorticoids and number of cigarettes smoked are not considered. These limitations are discussed in a Fr equently Asked Questions section of the FRAX website which you are encouraged to review. ? DEXA data sheets with BMD measurements a nd plots are available in E- under the imaging tab. Paper copies will be sent to providers without E-DH access. If you have received this report without th e data sheet and do not have access to E-, please contact Radiology [facility] at [phone] Sunday thru Sunday 8am-4pm. Thank you for letting us participate in the care of this patient. ??If you are a health care provider and have any questi ons regarding this report, please contact the number below. ??For patients who have questions please contact the health animal caretaker that requested your imaging first. ? Narrative 02/25/2021 9:29 AM EDT EXAMINATION: DXA CENTRAL SPINE, HIP, AND/OR WHOLE BODY (GENERIC) CLINICAL HISTORY: 54 year old woman on residential treatment with anastrozole. No prior Dexa scan ?? (as entered by ordering provider) TECHNIQUE: Scans were acquired at the jason mbar spine, and left hip. COMPARISON: none FINDINGS: Femoral neck BMD: 0.857 ? g/cm2 Lowest T-score at a diagnostic region of interest: T-score: -1.2, MARIANA: Lumbar spine, WHO di agnosis: ??osteopenia Procedure Note Andrea, Mony Patel MD - 02/25/2021Formattin g of this note might be different from the original. EXAMINATION: DXA CENTRAL SPINE, HIP, AND /OR WHOLE BODY (GENERIC) CLINICAL HISTORY: 54 year old woman on residential treatment with anastrozole. No prior Dexa scan (as entered by o rdering provider) TECHNIQUE: Scans were acquired at the jason mbar spine, and left hip. COMPARISON: none FINDINGS: Femoral neck BMD: 0.857 g/cm2 Lowest T-score at a diagnostic region of interest: T-score: -1.2, MARIANA: Lumbar spine, WHO di agnosis: osteopenia IMPRESSION Measurements meet WHO criteria for osteo penia. Estimating Fracture Risk: ? The relationship between bone mineral de nsity (BMD) and risk of fracture is well established. As BMD decreases, risk incr eases. Quantifying risk is difficult and is usually limited to estimation of the relative risk - a term which may have limited value when trying to discuss an individual's risk. Estimating the absolute risk for a patient requires an understanding of the incidence rate in a given population and consideration of mu ltiple, partially independent, risk factors in addition to BMD. ? The World Health Organization (WHO) has developed a fracture risk prediction tool that calculates a ten-year risk of major osteoporotic fracture based on femoral neck bone density measurements a nd nine clinical risk factors for individuals who have not been treated fo r osteoporosis. This is available through an interactive web-based interfa ce (http://www.shef.ac.uk/FRAX/) and can be used to estimate a given patient's ab solute risk of major osteoporotic fracture or hip fracture over the next 1 0 years. These estimates may prove useful when discussing risk with a patie nt. It is important, however, to understand the tool's limitations and ho w a given individual's risk might differ from the tool's estimate. The tool does not take into account the dose-response associated with most risk factors. For e xample, the significant increase in risk associated with multiple prior fractures compared to a single prior fracture is not taken into account. Similarly, the l ocation of a previous fracture, the amount of glucocorticoids and number of cigarettes smoked are not considered. These limitations are discussed in a Fr equently Asked Questions section of the FRAX website which you are encouraged to review. ? DEXA data sheets with BMD measurements a nd plots are available in [facility] under the imaging tab. Paper copies will be sent to providers without E- access. If you have received this report without th e data sheet and do not have access to E-, please contact Radiology [facility] at [phone] Sunday thru Sunday 8am-4pm. Thank you for letting us participate in the care of this patient. If you are a health care provider and have any questi ons regarding this report, please contact the number below. For patients w ho have questions please contact the health animal caretaker that requested your imaging first. Arjun Saleh MD IMG DEXA ORDERABLES Estradiol (08/12/2020 2:33 PM EDT) athologist Signature Estradiol <5 pg/mL [facility] Comment: Reference ranges: Males: Adult: ? 11 to 43 pg/mL Females: Non- females: ?Follicular: ??12-233 pg/m L ?Ovulation: ?? 41-398 pg/m L ?Luteal: ?22-341 pg /mL ?Postmenopausal: ?? <5 - 1 38 pg/mL females: ?1st trimester: ??154-3243 pg/mL ?2nd trimester: ??1561-212 80 pg/mL ?3rd trimester: ??8525- >3 0000 pg/mL Specimen Anatomical Collection Method Collection Time Receive d Time (Source) Location / / Volume Laterality Blood specimen 08/12/2020 2:33 PM 020 2:47 (specimen) EDT PM EDT Resulting Agency Comment Spec In Lab Arjun Saleh MD CHEMISTRY ORDERABLES Performing Organization Address [facility]/[place] [address] Follicle Stimulating Hormone (08/12/2020 2:33 PM EDT) athologist Signature FSH 37.5 mlU/ML [facility] Comment: Reference Ranges Male: ? 1.5-12. 4 mIU/mL Female ?? Follicular: ?3.5-12.5 m IU/mL ?? Ovulation: ? 4.7-21.5 m IU/mL ?? Luteal: ?1.7-7.7 mIU/mL ?? Postmenopausal: ?25.8-134.8 m IU/mL Specimen Anatomical Collection Method Collection Time Receive d Time (Source) Location / / Volume Laterality Blood specimen 08/12/2020 2:33 PM 020 2:47 (specimen) EDT PM EDT Resulting Agency Comment Spec In Lab Arjun Saleh MD CHEMISTRY ORDERABLES Performing Organization Address City/[facility]/[place] [address] documented in this encounter Visit Diagnoses Diagnosis Malignant neoplasm of overlapping sites of left breast in female, estrogen receptor positive jail current use of aromatase inhib itor Use of aromatase inhibitors 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
--- OUTSIDE RECORDS SUMMARY | 2022-07-27 10:13 | XMS_ITS | Encounter Summary ---
:1965 Author Organization [facility] [place] [address] Care Team Providers Name Role Phone Madina Oshea APRN Primary Care Provider Encounter Details Date Type Department Care Team Description 09/21/2020 Telephone Radiation Oncology at Heather Sena RN [address] [phone] Social History Tobacco Use Types Packs/Day Years [...] documented as of this encounter Miscellaneous Notes Telephone Encounter - Heather Sena RN - 09/21/2020 1:55 PM EST Message left with the information below noting that office note and sim report have been faxed alongwith my contact information and request for call back confirmation that they received notes and thismessage. Telephone Encounter - Heather Sena RN - 09/21/2020 1:50 PM EST ----- Message from Amy Cao sent at 09/21/2020 12:08 PM EST ----- Note and sim report have been faxed ----- Message ----- From: Janay Burt MD Sent: 09/21/2020 10:49 AM EST To: [facility] Rad Onc Weatherization Crew Leader Heather, will you please call office of PCP (Makayla Oshea APRN) & communicate CTsim findings of coronary atherosclerosis slightly out of proportion for patient age, borderline cardiomegaly for whichcorrelation w/echo suggested, also hepatic steatosis & that my note & CTsim note being faxed? [facility] Rad Onc Sec, will you please fax my note & 09/07/20 CTsim report to Makayla Oshea APRN? Janay documented in this encounter Plan of Treatment Not on filedocumented as of this encounter Visit Diagnoses Not on filedocumented in this encounter Care Teams Surveillance Officer Relationship Specialty Start Date End Date Madina Oshea APRN PCP - General Internal Medicine 07/09/[address] [place] [address] [place] [address] documented as of this encounter
--- OUTSIDE RECORDS SUMMARY | 2022-07-27 10:13 | XMS_ITS | Encounter Summary ---
:1965 Author Organization [facility] [place] [address] Care Team Providers Name Role Phone Madina Oshea APRN Primary Care Provider Reason for Referral Physical Therapy (Routine) - Closed Specialty Diagnoses / Procedures Referred By Contact Refer red To Contact Physical Therapy Diagnoses S/P radiotherapy Janay Burt MD [facility] Pt [facility] RADIATION ONCOLOGY [address] [phone] Phone: Fax: Referral ID Status Reason Start Date Expiration Date Visits V isits Requested Authorized [id number] Closed Evaluate and 05/30/2021 05/30/2022 60 60 Treat Reason for Visit Reason Comments Radiation Follow-up Encounter Details Date Type Department Care Team Description 05/30/2021 Office Visit Radiation Oncology at Janay Burt MD S/P radiotherapy [address] [place] RADIATION ONCOL OGY [address] [place] [address] [phone] (Wo rk) Social History Tobacco Use Types Packs/Day Years [...] Sign Reading Time Taken Comments Blood Pressure 144/80 05/30/2021 1:36 PM EDT Pulse 68 05/30/2021 1:36 PM EDT Temperature 36.8 ??C (98.2 ??F) 05/30/2021 1:36 PM EDT Respiratory Rate 16 05/30/2021 1:36 PM EDT Oxygen Saturation 97% 05/30/2021 1:36 PM EDT Inhaled Oxygen Concentration - - Weight 112.5 kg (248 lb) 05/30/2021 1:36 PM EDT with sa harvey Height - - Body Mass Index 38.84 02/24/2021 9:38 AM EDT documented in this encounter Patient Instructions Patient InstructionsJanay Burt MD - 05/30/2021 1:30 PM EDT Someone will contact you for evaluation for instruction in stretching exercises for tightness near left underarm & for manual lymphatic drainage for lymphedema lower inner left breast. Someone will contact you to schedule followup with me in February. documented in this encounter Progress Notes Janay Burt MD - 05/30/2021 1:30 PM EDT Images from the original note were not included. CC: Sched'd fu s/p xrt completion. HPI: Martha is a 55 y/o f who completed xrt to L breast 7 mos ago (10/19/20) for breast ca, L, ILC, gr 1, ER+VA+, Her2 neg, s/p lumpectomy & SNB, pT1c pN0. She is on anastrozole, started after xrt completion. 02/24/21 B dx'ic mmg: Neg 02/24/21 Dr. Duenas, L breast edema & L axillary tightness, for which PT planned. Subjective: She has not heard from PT. Continued tightness UOQ L breast/low L axilla, although ROM Lshoulder ok. Also notes firm fullness LIQ L breast. No pain. No hand/arm swelling. Energy level good. History reviewed. No pertinent past medical history. Hypothyroidism. No lupus/scleroderma. Past Surgical History: Procedure Laterality Date ??? APPENDECTOMY 02/07/1913 ??? BREAST BIOPSY Left 07/05/2020 [facility] ??? BREAST LUMPECTOMY Left 07/23/2020 ??? CHOLECYSTECTOMY ??? MAMMO US BIOPSY LEFT Left 07/05/2020 Mammo Us Biopsy Left 07/05/2020 Ashok Simpson MD [facility] RAD MAMMOGRAPHY ??? PRO BX/REMV, LYMPH NODE, DEEP AXILL Left 07/23/2020 BIOPSY OR EXCISION OF LYMPH NODE(S), OPEN, DEEP AXILLARY NODE(S) (WRVU 6.43) performed by Barbie Duenas MD at [facility] OSC ??? PRO INTRAOP SENTINEL LYMPH ID W/DYE INJECTION Left 07/23/2020 INTRAOPERATIVE ID (MAPPING) SENTINEL LYMPH NODE,INCLUDES INJECTION (WRVU 2.5) performed by Barbie Duenas MD at [facility] OSC ??? PRO MASTECTOMY PARTIAL Left 07/23/2020 MASTECTOMY PARTIAL (WRVU 10.13) performed by Barbie Duenas MD at [facility] OSC ??? TUBAL LIGATION Your Medications Accurate as of May 30, 2021 1:49 PM. If you have any questions, ask your nurse or doctor. Continued medications, unchanged Dose Details anastrozole 1 mg Tab Commonly known as: Arimidex Take 1 tablet by mouth daily. Start on November 02, 2020. 1 mg Quantity: 90 tablet Refills: 3 CREAM BASE TOP Apply topically. Jeans Cream. Apply to area of radiation twice a day but no less than 2 hours beforea treatment. Refills: 0 ibuprofen 600 mg Tab Commonly known as: Advil Take by mouth. Refills: 0 levothyroxine 100 mcg Tab Commonly known as: Synthroid Take 300 mcg by mouth daily. 300 mcg Refills: 0 nystatin Crea Commonly known as: MYCOSTATIN Apply 1 drop topically as needed. 1 drop Refills: 0 Physical Exam Constitutional: General: She is not in acute distress. Comments: BP 144/80 (Patient Position: Sitting) Pulse 68 Temp 36.8 ??C (98.2 ??F) Resp 16 Wt 112.5 kg (248 lb) Comment: with sandals SpO2 97% BMI 38.84 kg/m?? HENT: Head: Normocephalic. Eyes: General: No scleral icterus. Right eye: No discharge. Left eye: No discharge. Extraocular Movements: Extraocular movements intact. Conjunctiva/sclera: Conjunctivae normal. Pulmonary: Effort: Pulmonary effort is normal. No respiratory distress. Breath sounds: No stridor. Chest: Breasts: Right: No inverted nipple, mass, nipple discharge, skin change or tenderness. Left: Skin change (Lymphedema LIQ) present. No inverted nipple, mass, nipple discharge or tenderness. Abdominal: General: There is no distension. Palpations: Abdomen is soft. There is no mass. Tenderness: There is no abdominal tenderness. There is no guarding or rebound. Musculoskeletal: General: No swelling or tenderness. Normal range of motion. Cervical back: Normal range of motion and neck supple. No tenderness. Right lower leg: No edema. Left lower leg: No edema. Lymphadenopathy: Head: Right side of head: No submental, submandibular, preauricular, posterior auricular or occipital adenopathy. Left side of head: No submental, submandibular, preauricular, posterior auricular or occipital adenopathy. Cervical: No cervical adenopathy. Upper Body: Right upper body: No supraclavicular or axillary adenopathy. Left upper body: No supraclavicular or axillary adenopathy. Skin: General: Skin is warm and dry. Neurological: Mental Status: She is alert and oriented to person, place, and time. Coordination: Coordination normal. Gait: Gait normal. Psychiatric: Mood and Affect: Mood normal. Behavior: Behavior normal. Thought Content: Thought content normal. Judgment: Judgment normal. ?? A: HA. Lymphedema LIQ L breast & tightness UOQ L breast/low L axilla from xrt. P: PT referral. Rtc February (Dr. Saleh in Aug). 20 mins in encounter. documented in this encounter Plan of Treatment Scheduled Referrals Name Type Priority Associated Diagnoses Order S chedule Referral to Outpatient Referral Routine S/P radiotherapy Orde red: Physical Therapy 05/30/2021 documented as of this encounter Visit Diagnoses Diagnosis S/P radiotherapy Convalescence following radiotherapy documented in this encounter Care Teams Sales Attendant Building Materials Relationship Specialty Start Date End Date Madina Oshea APRN PCP - General Internal Medicine 07/09/20 [address] [place] [address] documented as of this encounter
--- OUTSIDE RECORDS SUMMARY | 2022-07-27 10:13 | XMS_ITS | Encounter Summary ---
:1965 Author Organization [facility] Address [address] [place] [address] Care Team Providers Name Role Phone Madina Oshea APRN Primary Care Provider Encounter Details Date Type Department Care Team Description 09/01/2020 Orders Only General Surgery at Barbie Duenas neoplasm of [facility] MD Amanda upper-outer quadrant [facility] of left breast in Drive [place], [place] [address] GENERAL SURGERY receptor positive [phone] [place], [place] [address] (Primary Dx) Social History Tobacco Use Types Packs/Day Years [...] on file documented as of this encounter Plan of Treatment Not on filedocumented as of this encounter Results Mammo Diagnostic CAD and Nabeel Bilateral (02/24/2021 9:05 AM EDT) Anatomical Region Laterality Modality Breast Bilateral Mammography Specimen (Source) Anatomical Location Collection Method / Collectio n Time Received Time / Laterality Volume Narrative 02/24/2021 9:58 AM EDT REASON FOR EXAM: Screening History of breast cancer. New baseline TECHNIQUE: CC and MLO views were obtaine d of the bilateral breast(s). Computer aided detection was used. 3D tomosynthes is images were obtained in addition to 2D images. Comparison:Compared with prior images. FINDINGS: Breast density:Scattered fibroglanduar d ensity There are no suspicious microcalcificati ons, masses, or areas of distortion. There are post surgical changes in the L eft Breast CONCLUSION: No mammographic evidence of malignancy. RECOMMENDATION:Routine screening. A result letter has been sent to this pa tient by the [facility]. BIRADS CATEGORY 2: BENIGN FINDINGS * ??The [employer] an d The Society of Breast Imaging recommend annual screening beginning at age 40 for the general female population. * ??Screening should continue as long as a woman is in good health and is expected to live 10 more years or longer . * ??All women should be familiar with th e known benefits, limitations, and potential harms linked to breast cancer screening. They also should know how their breasts normally look and feel and report any breast changes to a health care provider right away. * ??Some women, because of their family history, a genetic tendency, or certain other factors, should be screened with M RIs along with mammograms. (The number of women who fall into this category is very small.) The patient and health care provider should discuss the patient hist ory and decide if earlier screening and breast MRI are appropriate. Thank you for letting us participate in the care of this patient. ??If you are a health care provider and have any questi ons regarding this report, please contact the number below. ??For patients who have questions please contact the health care center manager that requested your imaging first. ? Barbie Duenas MD IMG MAMMO ORDERABLES documented in this encounter Visit Diagnoses Diagnosis Malignant neoplasm of upper-outer quadra nt of left breast in female, estrogen receptor positive - Primary Malignant neoplasm of upper-outer quadra nt of left breast in female, estrogen receptor positive documented in this encounter Care Teams Recreational Sports Director Relationship Specialty Start Date End Date Madina Oshea APRN PCP - General Internal Medicine 07/09/[address] [place] [address] documented as of this encounter
--- OUTSIDE RECORDS SUMMARY | 2022-07-27 10:13 | XMS_ITS | Encounter Summary ---
:1965 Author Organization [facility] [place] [address] Care Team Providers Name Role Phone Dayo Madina Hill APRN Primary Care Provider Reason for Visit Reason Comments Follow-up Encounter Details Date Type Department Care Team Description 02/24/2021 Office Visit Hematology and Arjun Saleh, Jame t neoplasm of overlapping sites of left breast in female, estrogen receptor positive; Oncology at [facility] Osteopenia of lumbar spine [facility] [address] [place] HEMATOLOGY/ONCOLOG [address] Y DEPT. [phone] [place], [place] [address] Social History Tobacco Use Types [...] Sign Reading Time Taken Comments Blood Pressure 144/75 02/24/2021 11:31 AM EDT Pulse 65 02/24/2021 11:31 AM EDT Temperature 36.4 ??C (97.5 ??F) 02/24/2021 11:31 AM EDT Respiratory Rate 14 02/24/2021 11:31 AM EDT Oxygen Saturation 97% 02/24/2021 11:31 AM EDT Inhaled Oxygen Concentration - - Weight - - Height - - Body Mass Index - - documented in this encounter Progress Notes Arjun Saleh MD - 02/24/2021 11:30 AM EDT Subjective: Patient ID: Martha Hansen is a 55 y.o. female with Stage II breast cancer, here for six month followup. HPI Ms. Hansen presented on screening mammography June 28, 2002 with increased prominence of a focalarea of asymmetric density centrally in the left breast with a question of architectural distortion.The right breast was unremarkable and the breasts were of scattered density. Diagnostic imaging on June 30 showed a highly suspicious 1.1 cm hypoechoic area with architectural distortion at 12:00, 4.5 cm from the left nipple. An ultrasound-guided [...] lymphovascular invasion. Two sentinel nodes were negative. Oncotype testing s howed a Recurrence Score of 17 and I recommended against adjuvant chemotherapy. She received radiotherapy to the left breast from September 20 through October 19, 2020, 42.56 Gy in 16 fractions to the breast with a 10 Gy boost in four fractions to the tumor bed. Martha tested negative for a deleterious mutation on the [employer] Multi-Cancer Panel on December 14, 2020. She reports that her sister was diagnosed with breast cancer since our last visit. Interval History: Martha started anastrozole on November 02, 2020. She has done well with it so far. She has two to three hot flashes per day with hot flashes and sweats at night, which do not awaken her from sleep. Her hands sometimes fall asleep at night. She has some mood swings. She has pain in her knees, but she denies any sites of morning stiffness, and she has no other sites of joint or skeletal pain. She gets an upset stomach when she takes her anastrozole but her nausea is relieved with food. She takes a multivitamin daily which contains Vitamin D and she left weights and she walks several miles three times a week. Review of Systems She denies breast pain, a cough, shortness of breath, chest pain, vomiting, diarrhea, constipation, headaches, double vision, skin rashes, or pain, redness, or swelling in her lower extremities. The remainder of her review of systems is negative. Objective: Physical Exam Vitals reviewed. Constitutional: Comments: Her weight is up 2.5 kg over the past six months, and her BP is 144/75. HENT: Mouth/Throat: Mouth: Mucous membranes are moist. Pharynx: Oropharynx is clear. Neck: Comments: She has no cervical or supraclavicular adenopathy Cardiovascular: Rate and Rhythm: Normal rate and regular rhythm. Pulmonary: Breath sounds: Normal breath sounds. No wheezing or rales. Comments: The skin of the left breast is brawny and edematous. There are no masses within the left [...] hips. No peripheral edema, erythema, or warmth Labs from July 15, 2020 included a WBC count of 7.1, Hgb 14.2, Hct 42.3, platelets 273, ANC 3580, Na 140, K 3.5, Cl 103, bicarb 26, BUN 15, creatinine 0.76, Ca 10.4, albumin 4.5, bili 0.4, alk phos 97, AST 28, and ALT 48. Today's mammograms show no suspicious microcalcifications, masses, or architectural distortion, withpost-surgical changes on the left. The breasts are of scattered density. Today's baseline Dexa scan shows T scores of -1.2 at the spine, 0.1 at the femoral neck, and 0.9 at the hip. Assessment and Plan: Ms. Hansen is a 55 year old woman with a 1.5 cm low grade invasive lobular carcinoma, node negative, estrogen and progesterone receptor strongly positive, and Her-2 negative, with a Recurrence Score of 17. She has no evidence of breast cancer recurrence, and she is tolerating anastrozole very well, with moderate vasomotor symptoms and no arthralgias attributable to the anastrozole. She has borderline bone density at her spine, she does an adequate amount of weight- bearing exercise, and I will checkher Vitamin D level in the fall to ensure that she is taking an adequate amount of Vitamin D. I willsee her next in followup in six months with a lab draw that day. I asked her to contact us in the interim if she has any concerns and particularly if she needs help in managing either arthralgias or vasomotor symptoms. Arjun Saleh MD director outcomes in Hematology-Oncology documented in this encounter Plan of Treatment Not on filedocumented as of this encounter Results (ABNORMAL) Hepatic Function Panel (08/23/2021 10:09 AM EDT) P athologist Signature Total Protein 7.6 6.1 - 8.0 IMELDA MATTEO g/dL [facility] Albumin 4.4 3.2 - 5.2 IMELDA MATTEO g/dL [facility] AST 41 (H) 0 - 30 [facility] unit/L [facility] ALT 79 (H) 0 - 30 IMELDA MATTEO unit/L [facility] Alk Phos 128 (H) 35 - 105 IMELDA MATTEO unit/L [facility] Total 0.4 0.2 - 1.3 IMELDA MATTEO Bilirubin mg/dL [facility] Bili, Direct 0.1 0.0 - 0.3 [facility] mg/dL [facility] Specimen Anatomical Collection Method Collection Time Receive d Time (Source) Location / / Volume Laterality Blood 08/23/2021 10:09 08/23/2021 AM EDT 10:38 AM EDT Resulting Agency Comment Spec In Lab Arjun Saleh MD CHEMISTRY ORDERABLES Performing Organization Address City/State/ZIP Code Phon e Number [address] Vitamin D, 25-Hydroxy (08/23/2021 10:09 AM EDT) [facility] gist Method Time Signature 25-OH Vit D 28 21 - 100 [facility] ng/mL [facility] 25-OH Vit D Insufficient [facility] Specimen Anatomical Collection Method Collection Time Receive d Time (Source) Location / / Volume Laterality Blood 08/23/2021 10:09 08/23/2021 AM EDT 10:38 AM EDT Resulting Agency Comment Spec In Lab Arjun Saleh MD CHEMISTRY ORDERABLES Performing Organization Address City/State/[place] [address] documented in this encounter Visit Diagnoses Diagnosis Malignant neoplasm of overlapping sites of left breast in female, estrogen receptor positive Osteopenia of lumbar spine documented in this encounter Care Teams Conservation Of Resources Commissioner Relationship Specialty Start Date End Date Madina Oshea APRN PCP - General Internal Medicine 07/09/20 [facility] [place] [address] documented as of this encounter
--- OUTSIDE RECORDS SUMMARY | 2022-07-27 10:13 | XMS_ITS | Encounter Summary ---
:1965 Author Organization [facility] [place] [address] Care Team Providers Name Role Phone Madina Oshea APRN Primary Care Provider Encounter Details Date Type Department Care Team Description 08/12/2020 Hospital Encounter [facility]ammography at [facility] [place] [phone] DIAGNOSTIC RADIO [place], [place] [address] (Wo rk) Social History Tobacco Use Types [...] on file documented as of this encounter Medications at Time of Discharge Medication Sig Dispensed Refills Start Date End Date ibuprofen (Advil;Motrin) Take by mouth every 6 0 03/30/2017 600 mg Tablet hours as needed. nystatin (MYCOSTATIN) Apply 1 drop 0 06/22/2020 Cream topically as needed. levothyroxine (Synthroid) Take 300 mcg by mouth 0 100 mcg Tablet daily. documented as of this encounter Plan of Treatment Not on filedocumented as of this encounter Procedures Procedure Name Priority Date/Time Associated Comments Diagnosis MAMMO BREAST Routine 08/12/2020 9:58 AM Results f or this PATHOLOGY LUMPECTOMY EDT procedu re are in the results section. documented in this encounter Results MAMMO BREAST PATHOLOGY LUMPECTOMY (08/12/2020 9:58 AM EDT) Specimen (Source) Anatomical Location Collection Method / Collectio n Time Received Time / Laterality Volume Narrative RAD - 08/12/2020 9:58 AM EDT This exam is auto-finalizing. No interpr etation was done. Mary Ellen Crump MD IMG MAMMO ORDERABLES Performing Organization Address City/State/ZIP Code Phon e Number [place], [place] documented in this encounter Visit Diagnoses Not on filedocumented in this encounter Care Teams Web Services Manager Relationship Specialty Start Date End Date Madina Oshea APRN PCP - General Internal Medicine 07/09/[address] [place] [place] [address] documented as of this encounter
--- OUTSIDE RECORDS SUMMARY | 2022-07-27 10:13 | XMS_ITS | Encounter Summary ---
:1965 Author Organization [facility] [place] [address] Care Team Providers Name Role Phone Ruthann Osheayce Liz BELLAMY Primary Care Provider Reason for Visit Auth/Cert Specialty Diagnoses / Procedures Referred By Contact Refer red To Contact Diagnoses BREAST CANCER Procedures PRO MASTECTOMY PARTIAL PRO BX/REMV, LYMPH NODE, DEEP AXILL PRO INTRAOP SENTINEL LYMPH ID W/DYE INJECTION MASTECTOMY PARTIAL (WRVU 10.13) BIOPSY OR EXCISION OF LYMPH NODE(S), OPEN, DEEP AXILLARY NODE(S) (WRVU 6.43) INTRAOPERATIVE ID (MAPPING) SENTINEL LYMPH NODE,INCLUDES INJECTION (WRVU 2.5) MODIFIER WITH NEEDLE LOC., LESION #1 MODIFIER SENTINEL NODE EXCISION Referral ID Status Reason Start Date Expiration Date Visits Requ ested Visits Authorized [id number] 1 1 Encounter Details Date Type Department Care Team Description 07/23/2020 Surgery Outpatient Surgery Jessica Duenas MA STECTOMY PARTIAL Center Nan Vasquez MD (WRVU 10.13) [facility] [address] [place] [address] [place] [address] [phone] (Wo rk) Social History Tobacco Use Types [...] Sign Reading Time Taken Comments Blood Pressure 159/73 07/23/2020 3:46 PM EDT Pulse 61 07/23/2020 3:46 PM EDT Temperature 36.4 ??C (97.5 ??F) 07/23/2020 3:46 PM EDT Respiratory Rate 12 07/23/2020 3:46 Simultaneous fi ling. PM EDT User may not hav e seen previous data. Oxygen Saturation 99% 07/23/2020 3:46 PM EDT Inhaled Oxygen - - Concentration Weight 105.2 kg (232 lb) 07/23/2020 12:42 PM EDT Height 170.2 cm (5' 7) 07/23/2020 12:42 PM EDT Body Mass Index 36.34 07/23/2020 12:42 PM EDT documented in this encounter Discharge Instructions Discharge InstructionsKirstin Abrams RN - 07/23/2020 2:01 PM EDT Okay to shower 24 hours Activity as tolerated Call [phone] with any questions Do not soak incision for 2 weeks Will call with pathology results when available Ice pack to breast as needed Okay to use tylenol and/or ibuprofen as needed for pain (Recommend taking 650 mg of tylenol and 400 mg ibuprofen every 6 hours as needed) Wear bra for comfort (you may want to wear 28/05 until swelling improves) At 1 pm you received 1000 mg of acetaminophen- Your next dose should not be taken before 8 hours have passed. Next dose not before- 9:00 pm tonight.General Anesthesia Discharge Instructions Go home and rest. You may be sleepy for several hours. Take it easy as sudden position changes may cause nausea and/or dizziness. Use caution on stairs. Follow a light to regular diet as tolerated today. If nausea occurs, start with clear liquids, and progress slowly to a regular diet. Do not drive, operate machinery, drink alcoholic beverages or make any legal decisions after having general anesthesia. The medications given change your reaction time and alter your judgement. IV site -- slight redness is normal, you can use warm compresses. If tenderness and redness increases or foul drainage occurs, please contact your M.D. Patients who have had endotracheal tubes/LMA (tubes used by the anesthesia staff to ensure a safe airway during your operation) may have a sore throat. This is normal and cold liquids or soothing lozenges will help ease this discomfort. Narcotic pain medications can cause constipation, please ask the surgeons office what they recommendfor prevention of this. Some non-pharmaceutical means of constipation prevention include increasing intake of fluids, eating more fruits and vegetables as well as fruit juices. If you are uncomfortable and/or unable to urinate within 8 hours of discharge and it is before 5 pm,call your physician. If it is after 5pm go to the closest emergency room or call the hospital insulation board coater operator at [phone] and ask for physician electronic news gathering editor covering for your physician. Questions or problems after 5pm or on a weekend: Call the [facility] insulation board coater operator at and ask for the physician electronic news gathering editor covering for your doctor. You should not take more than a total of 3000 mg of acetaminophen in a 24 hour period. I documented in this encounter Medications at Time of Discharge Medication Sig Dispensed Refills Start Date End Date ibuprofen (Advil;Motrin) Take by mouth every 6 0 03/30/2017 600 mg Tablet hours as needed. nystatin (MYCOSTATIN) Apply 1 drop 0 06/22/2020 Cream topically as needed. levothyroxine (Synthroid) Take 300 mcg by mouth 0 100 mcg Tablet daily. documented as of this encounter Progress Notes Sunny Luz RN - 07/23/2020 4:16 PM EDT Pt is alert and oriented sitting up on the stretcher drinking Bettye Kinga and eating crackers, at bedside. Pt does note c/o pain, only c/o soreness, no c/o nausea. 1623-- discharge instructions reviewed with pt and verbalized understanding, has herdischarge instructions 1642-- pt ambulated to the bathroom then out to private car assisted by x1 nursing staff Sarah Matnilla RN - 07/23/2020 3:46 PM EDT Arrived [facility] #16, bra binder in place, with fluffs over left, D/I, left arm pit incision open to air with gauze 3x3 [address] Ana Lilia Zapien RN - 07/22/2020 1:04 PM EDT During this call the patient was questioned regarding travel outside of [facility], fever, cough, SOB or other illness in the last 14 days. Patient also questioned regarding any exposure to a COVID positive person, a person awaiting results from testing or a person in quarantine.Patient deniesany positive responses to the above questions for themselves or their escort for the day of procedure. Patient informed of procedure to be followed upon arrival to the [facility]. That being, COVID questions will be asked again, temperature will be taken, patient and caregiver/wagon driver will be given a mask to wear the entire time they are in the [facility] building. Sally Wong RN - 07/16/2020 3:21 PM EDT During this call the patient was questioned regarding travel, fever, cough, SOB or other illness in the last 14 days. Patient also questioned regarding any exposure to a COVID positive person, a personawaiting results from testing or a person in quarantine. Patient denies any positive responses to the above questions for themselves or their escort for the day of procedure. documented in this encounter H&P Notes Jessica Duenas MD - 07/23/2020 11:29 AM EDT Patient ID: Martha Hansen is a 54 y.o. female. ?? HPI Martha is a 54 yo female who presents today in surgical consultation at the request of Dr. Simpson. She presents with her to discuss newly diagnosed left breast cancer. Martha presented for screening mammography. This prompted call back views which confirmed: There is a highly suspicious 1.2 cm area of architectural distortion in the left upper central breast middle third 12:00 radian 4.5 cm from the nipple. The right breast is unremarkable. ?? Biopsy revealed a low grade IDC which is strongly Er/HI+ and her2-. ?? MRI was performed for preoperative planning. There is a 4.0 cm irregular area of nonmass enhancement at the site of the biopsy clip at 12:00 radian. LEFT BREAST LESION 1: ??4.1 cm Non mass enhancement Upper ??12 O'Clock 4 - 8 cm from the nipple by MRI ?? Martha has been quite anxious about the diagnosis and lack of a plan but is physically feeling well. She denies any known breast masses, nipple discharge, skin changes or adenopathy. ?? SH: with 2 sons and a daughter. Non smoker. Rare etoh ?? FH: no breast or ovarian cancer ?? PMH Hypothyroidism ? Review of Systems Constitutional: Negative. HENT: Negative. Eyes: Negative. Respiratory: Negative. Cardiovascular: Negative. Gastrointestinal: Negative. Endocrine: Negative. Genitourinary: Negative. Musculoskeletal: Negative. Skin: Negative. Allergic/Immunologic: Negative. Neurological: Negative. Hematological: Negative. Psychiatric/Behavioral: The patient is nervous/anxious. ? Objective: Physical Exam Constitutional: Appearance: Normal appearance. Neck: Musculoskeletal: Normal range of motion. Cardiovascular: Rate and Rhythm: Normal rate and regular rhythm. Pulmonary: Effort: Pulmonary effort is normal. Breath sounds: Normal breath sounds. Chest: Breasts: Right: No mass. Left: No mass. Musculoskeletal: Normal range of motion. Lymphadenopathy: Upper Body: Right upper body: No supraclavicular or axillary adenopathy. Left upper body: No supraclavicular or axillary adenopathy. Skin: General: Skin is warm. Neurological: General: No focal deficit present. Mental Status: She is alert. Psychiatric: Mood and Affect: Mood normal. ? IMaging: as in hpi. I have personally reviewed CBC- WNL BMP- alt 48 Assessment and Plan: ?? Martha is a 54 yo female with radiographic stage I IDC of the left breast.No symptomatic or chemical evidence of metastasis. She does have a very slight elevation of her ALT with a history of hepatitis in the distant past and recent etoh use (mild). Discussed options for surgery. Martha was initially leaning toward mastectomy as she would like to do everything she can to improve her survival. We discussed the equivalency of survival if she opts for mastectomy vs BCT and the very slight difference in local recurrence if she proceeds with partial mastectomy and radiation. We reviewed the size of the lesion on MRI and the cosmetic outcome I would anticipate with BCT. After discussion, she has opted forpartial mastectomy with NLOC followed by radiation therapy. We also discussed the technique and rationale for sentinel node biopsy and we will proceed with this as well. ?? We briefly touched upon systemic adjuvant therapy. Martha understands that endocrine therapy will be recommended and she is willing to undergo chemotherapy if indicated and understands that oncotype DX testing will likely be recommended. ?? Risks of surgery including bleeding, infection, need for additional surgery and lymphedema were discussed and consent was obtained. Stable for OR documented in this encounter Miscellaneous Notes Op Note - Jessica Duenas MD - 07/23/2020 3:43 PM EDT [facility] Operative Note Patient Name: Martha Hansen : [id number] MR#: [id number] Case Date: 07/23/2020 Surgeon: Surgeon(s) and Role: * Jessica Duenas MD - Primary Preoperative diagnosis: BREAST CANCER Postoperative diagnosis: BREAST CANCER Procedure(s) (LRB): MASTECTOMY PARTIAL (WRVU 10.13) (Left) BIOPSY OR EXCISION OF LYMPH NODE(S), OPEN, DEEP AXILLARY NODE(S) (WRVU 6.43) (Left) INTRAOPERATIVE ID (MAPPING) SENTINEL LYMPH NODE,INCLUDES INJECTION (WRVU 2.5) (Left) MODIFIER WITH NEEDLE LOC., LESION #1 (Left) MODIFIER SENTINEL NODE EXCISION (Left) Anesthesia: General Estimated Blood Loss: 46cc Specimens removed during surgery: Order Name Source Comment Collection Info Order Time SPECIMEN TO PATHOLOGY BREAST CANCER LEFT Breast lumpectomy excision Yes 07/23/2020 2:43 PM Time specimen removed from patient: 2:42 PM Number of tissue samples (in container) 1 SPECIMEN TO PATHOLOGY BREAST CANCER LEFT axillary sentinel nodes excision 07/23/2020 3:03 PM Time specimen removed from patient: 2:48 PM Number of tissue samples (in container) 1 SPECIMEN TO PATHOLOGY Breast Cancer LEFT Breast additional superficial margin excision 07/23/2020 3:09 PM Time specimen removed from patient: 3:08 PM Number of tissue samples (in container) 1 SPECIMEN TO PATHOLOGY Breast Cancer LEFT Breast additional deep margin excision 07/23/2020 3:09 PM Time specimen removed from patient: 3:08 PM Number of tissue samples (in container) 1 SPECIMEN TO PATHOLOGY Breast Cancer LEFT Breast additional lateral margin excision 07/23/2020 3:09 PM Time specimen removed from patient: 3:09 PM Number of tissue samples (in container) 1 Surgical Closure: Primary Closure - skin incision is completely closed without any wires, maryellen, drains or other devices Disposition: awakened from anesthesia, extubated and taken to the recovery room in a stable condition, having suffered no apparent untoward event. Condition: doing well without problems (Please see the Surgical Encounter Summary for any Implant and Specimen details pertinent to this patient.) HPI/Surgical Indications: Martha is a 54 yo female with a left breast cancer at 12:00. She presents for partial mastectomy with sentinel node excision. Procedure Description: Martha presented to radiology for wire localization and technetium injection (for lymphatic mapping) in the left breast. She then was admitted through Same-Day Surgery. She was then brought to the Operating Room and laid supine on the operating table. Sedatives were administered intravenously and an LMA was placed. The left breast was prepped and draped in sterile fashion. Time-out confirmed the patient's identity, the correct surgical site, and the administration of prophylactic antibiotics. Once the time out had been confirmed, attention was turned to the breast. Here an incision was made at the superior areolar border. I elevated a flap laterally and the wire was brought into the wound. A circumferential core of tissue was widely excised. The tissue was inked on the anatomic margins and sent to Radiology where the clip and mass were confirmed to be central in the surgical specimen. Of note, I excised additional tissue with the main lumpectomy medially and laterally given questionable enhancement on MRI. I also re-excised the lateral, superficial and deep margins. The wound was irrigated and hemostasis achieved. Biopsy cavity clips were placed. Partial breast reconstruction was undertaken, and the wound was closedin layers. Sterile dressings were applied. Attention was then turned to the axilla. Here an incision was made and brought through the clavipectoral fascia. Guided by the gamma probe, I identified 2 sentinel nodes which were excised. This had anex vivo count of 376. Remaining count within the axilla was 4. There was not palpable adenopathy. Satisfied that all sentinel nodes were removed, the wound was irrigated and hemostased and closed in layers. Infection Bundle used? N/A Attestation: Case Date: 07/23/2020 I performed this procedure without the involvement of a resident. JESSICA DUENAS MD 07/23/2020 documented in this encounter Plan of Treatment Not on filedocumented as of this encounter Procedures Procedure Name Priority Date/Time Associated Comments Diagnosis SPECIMEN TO PATHOLOGY Routine 07/23/2020 3:09 PM Results for this EDT procedure are i n the results section. SPECIMEN TO PATHOLOGY Routine 07/23/2020 3:09 PM Results for this EDT procedure are i n the results section. SPECIMEN TO PATHOLOGY Routine 07/23/2020 3:09 PM Results for this EDT procedure are i n the results section. SPECIMEN TO PATHOLOGY Routine 07/23/2020 3:03 PM Results for this EDT procedure are i n the results section. SPECIMEN TO PATHOLOGY Routine 07/23/2020 2:43 PM Results for this EDT procedure are i n the results section. SURGICAL PATHOLOGY Routine 07/23/2020 2:42 PM Res ults for this REPORT EDT procedure are i n the results section. MODIFIER SENTINEL NODE 07/23/2020 2:07 PM BREAST CANCE R EXCISION EDT MODIFIER WITH NEEDLE 07/23/2020 2:07 PM BREAST CANCER LOC., LESION #1 EDT INTRAOPERATIVE ID 07/23/2020 2:07 PM BREAST CANCER (MAPPING) SENTINEL EDT LYMPH NODE,INCLUDES INJECTION (WRVU 2.5) BIOPSY OR EXCISION OF 07/23/2020 2:07 PM BREAST CANCER LYMPH NODE(S), OPEN, EDT DEEP AXILLARY NODE(S) (WRVU 6.43) MASTECTOMY PARTIAL 07/23/2020 2:07 PM BREAST CANCER (WRVU 10.13) EDT documented in this encounter Results Specimen to Pathology (07/23/2020 3:09 PM EDT) Specimen Anatomical Collection Method Collection Time Receive d Time (Source) Location / / Volume Laterality AP Specimen 07/23/2020 3:09 PM 0 3:09 EDT PM EDT Narrative [facility] - 07/23/2020 3:09 PM EDT Specimen requisition ordered. ??Separate Pathology report to follow Jessica Duenas MD PATHOLOGY/CYTOLOGY ORDERABLE S Performing Organization Address City/[facility]/ZIP Code Phon e Number [address] Specimen to Pathology (07/23/2020 3:09 PM EDT) Specimen Anatomical Collection Method Collection Time Receive d Time (Source) Location / / Volume Laterality AP Specimen 07/23/2020 3:09 PM 0 3:09 EDT PM EDT Narrative [facility] - 07/23/2020 3:09 PM EDT Specimen requisition ordered. ??Separate Pathology report to follow Jessica Duenas MD PATHOLOGY/CYTOLOGY ORDERABLE S Performing Organization Address City/State/[place] [address] Specimen to Pathology (07/23/2020 3:09 PM EDT) Specimen Anatomical Collection Method Collection Time Receive d Time (Source) Location / / Volume Laterality AP Specimen 07/23/2020 3:09 PM 0 3:09 EDT PM EDT [facility] 07/23/2020 3:09 PM EDT Specimen requisition ordered. ??Separate Pathology report to follow Jessica Duenas MD PATHOLOGY/CYTOLOGY ORDERABLE S Performing Organization Address City/[facility] [place] [address] Specimen to Pathology (07/23/2020 3:03 PM EDT) Specimen Anatomical Collection Method Collection Time Receive d Time (Source) Location / / Volume Laterality AP Specimen 07/23/2020 3:03 PM 0 3:03 EDT PM EDT Narrative [facility] OR - 07/23/2020 3:03 PM EDT Specimen requisition ordered. ??Separate Pathology report to follow Jessica Duenas MD PATHOLOGY/CYTOLOGY ORDERABLE S Performing Organization Address [facility]/[place] [address] Specimen to Pathology (07/23/2020 2:43 PM EDT) Specimen Anatomical Collection Method Collection Time Receive d Time (Source) Location / / Volume Laterality AP Specimen 07/23/2020 2:43 PM 0 2:43 EDT PM EDT Narrative [facility] - 07/23/2020 2:43 PM EDT Specimen requisition ordered. ??Separate Pathology report to follow Jessica Duenas MD PATHOLOGY/CYTOLOGY ORDERABLE S Performing Organization Address City/[facility]/[place] [address] Surgical Pathology Report (07/23/2020 2:42 PM EDT) Component Value Ref Test Analysis Performed At [facility] gist Range Method Time Signature Surgical ? Location: [facility] Report The signing pathologist has (i) examined the relevant preparation(s) for the [facility] specimen(s) and (ii) rendered or confirmed the diagnosis(es) . HOSPITAL LABORATORY . ? Addendum ADDENDUM DISCUSSION SPECIAL TEST PERFORMED: Test: ??Oncotype DX [facility] Case: ??[id number], block A10 Performing Lab: ??[facility] Performing Lab Case: ??[id number] Reported by: ??Ramsey Payne MD Date reported: ??08/24/2020 For the full text of the [facility] report please refer to Non- Documentation Pathology in the electronic health record (eDH). Electronically signed by: ??Flower Mendes DO Verified: ??09/06/2020 ?Pathologist Performed at: ??-[facility] Dept. of Pathology, [place], [place] ?Surgic al Pathology DIAGNOSIS A - Left breast, partial mastectomy: ??- Invasive lobular carcinoma (see Synoptic Report). ??- Lobular carcinoma in-situ and atypical lobular hyperpla matilde. ??- Cysts, columnar cell changes, apocrine metaplasia. ??- Biopsy site changes present. B - ??Left axillary sentinel node, excision: ??- Two lymph nodes, negative for malignancy (0/2). C - ??Left breast additional superficial margin, excision: ??- Benign breast tissue. D - ??Left breast additional deep margin, excision: ??- Benign breast tissue. E - ??Left breast additional lateral margin, excision: ??- Benign breast tissue. Electronically signed by: ??Flower Mendes DO Verified: ??08/03/2020 ?Pathologist Performed at: ??-[facility] Dept. of Pathology, [place], [place] SYNOPTIC Specimen Parts: ??A, B Specimen ? Procedure: ??Excision (less than total mastecto my) ? Specimen Laterality: ??Left Tumor ? Histologic Type: ??Invasive lobular carcinoma ? Glandular (Acinar) / Tubular Differentiation: ? ?Score 3 ? Nuclear Pleomorphism: ??Score 1 ? Mitotic Rate: ??Score 1 ? Overall Grade: ??Grade 1 (scores of 3, 4 or 5) ? Tumor Size: ??15 Millimeters (mm) ? Ductal Carcinoma In Situ (DCIS): ??Not identifi ed . SYNOPTIC ? Lobular Carcinoma In Situ (LCIS): ??Present ? Lymphovascular Invasion: ??Not identified Margins ? Invasive Carcinoma Margins: ??Uninvolved by i nvasive carcinoma ?Distance from Closest Margin (Millimeters): ??Less than 1 mm ?Closest Margin(s): ??Anterior ?Distance from Other Margins ? Posterior Margin (Millimeters): ??6 ? Superior Margin (Millimeters): ??10 ? Inferior Margin (Millimeters): ??5 ? Medial Margin (Millimeters): ??13 ? Lateral Margin (Millimeters): ??23 ? Other Margin: ?M argins reported in the Synoptic only refer to the partial mastectomy ? (specimen A). See also separately submitted additional margins ? (specimens C-E). Lymph Nodes ? Regional Lymph Nodes: ??Uninvolved by tumor sunita ls ?Number of [place] Nodes Examined: ??2 Pathologic Stage Classification (pTNM, AJCC 8th Edition) ? Primary Tumor (pT): ??pT1c ? Regional Lymph Nodes (pN): ??pN0 Tumor Block(s): ??A10 CAP eCC December 2019 Annual Release ER, HI, and HER2 studies (performed on prior biopsy, [id number]): ER: Positive (>90%, strong) HI: Positive (80-90%, strong) HER2 FISH: Negative ADDITIONAL STUDIES Immunohistochemistry Studies: Formalin-fixed, paraffin-emb edded tissue sections are studied using the polymer technique with appropriate positive and negative controls. ?These IHC studies provide the pathologist wit h adjunctive diagnostic information. Antibody specificity has been verified by testin g antibodies on a series of in-house tissues with known immunohistochemical perform ance characteristics. The clinical interpretation of any antibody positive stain ing or its absence is evaluated within the context of clinical presentation, morp hology, histopathological criteria and other diagnostic tests. Block ? Antibody ?Result (Positive /Negative) A4 ? e-cadherin ? Negative SPECIMEN(S) SUBMITTED A - Left breast lumpectomy B - ??Left axillary sentinel node C - ??Left breast additional superficial margin D - ??Left breast additional deep margin E - ??Left breast additional lateral margin CLINICAL INFORMATION Breast cancer SPECIMEN PROCESSING A - Labeled/Fixative: Left breast lumpectomy, fresh. Quantity/Size/Weight: ??Sing le, medial to lateral 7.0 cm; superior to inferior 4.5 cm; anterior to posterior 2.2 cm, 36.3 g. SPECIMEN DESCRIPTION Resection Specimen: Intact lumpectomy. . SPECIMEN PROCESSING Specimen radiograph: Specimen radiograph reviewed in e-DH. Radiology notes the presence of wire, clip and lesion within the specimen. Specimen Description: Accord ing to the established protocol the ink designations are red (medial), yellow (l ateral), orange (superior), green (inferior), black (posterior) and blue (anterior). Tissue Sections: The specimen is serially sectio srinivasa perpendicular to the long axis from medial-red to lat eral-yellow into VIII slices, each averaging 0.4 cm in thickness. LESION ??Description: 1.5 x 1.1 x 1.1 cm, pink-white, rubbery, mass with scalloped borders. ??Location: Present in slices III-IV. ??Nearest Margin(s): 0.1 cm, anterior ??-blue. ??Other Margin(s): 0.2 cm, superior-orange. ??Other Margin(s): 0.9 cm, posterior-black. ??Other Margin(s): 1.2 cm, inferior-green. ??Other Margin(s): 1.3 cm, medial-red. ??Other Margin(s): 2.3 cm, lateral-yellow. ??Wire/clip: Biopsy marker clip is localized to slice V associated with the lesion Parenchyma: The remaining pa renchyma reveals lobular adipose tissue with interspersed wisps of white breast tissue. Sections/Processing: Garbage Collector Supervisor sections in 14 cassettes as follows: ?A1: ??Garbage Collector Supervisor I, medial-red ?A2: ??Garbage Collector Supervisor II, with anterior-blue and automotive sales representative ior-black ?A3: ??Garbage Collector Supervisor III, inferior-green ?A4: ??Garbage Collector Supervisor III, anterior-blue ?A5: ??Garbage Collector Supervisor III, posterior-black ?A6: ??Garbage Collector Supervisor III, superior-orange ?A7: ??Garbage Collector Supervisor IV, inferior-green ?A8: ??Garbage Collector Supervisor IV, posterior-black ?A9: ??Garbage Collector Supervisor IV, anterior-blue ?A10: ??Garbage Collector Supervisor V, anterior-blue, includes marke r clip site ?A11: ??Garbage Collector Supervisor V, with inferior-green and poste rior-black ?A12: ??Garbage Collector Supervisor , anterior-blue ?A13-A14: ??Garbage Collector Supervisor VIII, lateral-yellow Ischemic Time: 1.2 hours B - Labeled/Fixative: Left axillary sentinel node, fresh. Quantity/Size: Fragments, aggregating 3.5 x 3.2 x 0.8 cm. Tissue Description: On palpa tion and sectioning with two probable nodes, 0.8 and 1.4 cm respectively. Sections/Processing: Submitted en toto in 3 cassettes labele d B1-B3. C - Labeled/Fixative: Left breast additional superficial mar gin, fresh. Quantity/Size: Single, 2.4 x 1 8 x 0.9 cm. Tissue Description: Portion of lobular, fernandez-yellow adipose tissue with blue ink marking is on one surface. The specimen is sectioned perpendicular to the inked margin revealing lobular, fernandez-yellow adipose tissue. Sections/Processing: Entirely submitted in 2 cassettes label ed C1-C2. D - Labeled/Fixative: Left breast additional deep margin, fr [facility]. Quantity/Size: Single, 2.5 x 1.8 x 1.5 cm. Tissue Description: Portion of lobulated, fernandez-yellow adipose tissue with black ink markings on the surface. On section, surfaces are glistenin g, fernandez-yellow. Sections/Processing: Entirely submitted in 3 cassettes label ed D1-D3. E - Labeled/Fixative: Left breast additional lateral margin, fresh. Quantity/Size: Single, 2.5 x 1.5 x 0.7 cm. Tissue Description: Portion of yellow lobular adipose tissue with yellow ink on one surface. The specimen i s sectioned perpendicular to the inked margin revealing lobular fernandez-yellow adipose tissue. Sections/Processing: Entirely submitted in 3 cassettes label ed E1-E3. ??PPS Specimen (Source) Anatomical Collection Method Collection Time Re ceived Time Location / / Volume Laterality 07/23/2020 2:42 PM EDT Jessica Duenas MD PATHOLOGY/CYTOLOGY ORDERABLE S Performing Organization Address City/State/[place] [address] documented in this encounter Visit Diagnoses Not on filedocumented in this encounter Administered Medications Inactive Administered Medications - up to 3 most recent administrations Medication Order MAR Action Action Date Dose Rate Site acetaminophen (Tylenol) tablet Given 07/23/2020 12:59 PM EDT 1,0 00 mg 1,000 mg 1,000 mg, Oral, ONCE, 1 dose, On Sun07/23/20 at 1315, Administer with SIP of H2O only., Day of Surgery (Day of Procedure), Routine BUpivacaine (PF) (MARCAINE) Given 07/23/2020 3:13 PM 11.5 mLs 19- Surgical Site 0.5 % (5 mg/mL) injection EDT ONCE PRN, Starting on Sun07/23/20 at 1439, Until Sun07/23/20 at 1843, Intra-Operative (Intra-Procedure), Routine lactated ringers infusion New Bag 07/23/2020 1:15 PM EDT 1,000 mLs 100 mL/hr 1,000 mL, at 100 mL/hr, Intravenous, CONTINUOUS, Starting on Sun07/23/20 at 1315, Until Sun07/23/20 at 1640, Day of Surgery (Day of Procedure) lidocaine (PF) (XYLOCAINE) 10 Given 07/23/2020 3:13 PM 11.5 mLs 19- Surgical Site mg/mL (1 %) injection EDT ONCE PRN, Starting on Sun07/23/20 at 1440, Until Sun07/23/20 at 1843, Intra-Operative (Intra-Procedure), Routine traMADoL (Ultram) tablet 50 mg 50 mg, Oral, EVERY 6 HOURS PRN, Starting on Sun07/23/20 at 1543, Until Sun07/23/20 at 1843, Pain, Routine documented in this encounter Active and Recently Administered Medications Times are shown in EDT. Scheduled Medication Order 07/21/2020 07/22/2020 07/23/2020 acetaminophen (Tylenol) tablet 1,000 mg (COMPLETED) 1259 (Given - Provider: Kirstin Abrams, RN) 1,000 mg, Oral, ONCE, 1 dose, Sun 0 at 1315, Administer with SIP of H2O only., Day of Surgery (Day of Procedure), Routine ceFAZolin (Ancef) 2 g in dextrose 5% 100 mL infusion (COMPLETED) 1422 (Given - Provider: Ebony Echols CRNA) 2 g, Intravenous, EVERY 3 HOURS, 1 dose, First dose on Sun07/23/20 at 1315, Administer over 30 Minutes, Intra-Operative (Intra-Procedure), Indication for (Active or Suspected): Prophylaxis Continuous Medication Order 07/21/2020 07/22/2020 07/23/2020 lactated ringers infusion (CANCELED) 1315 (New Bag - Provider: Kirstin Abrams RN)1518 (Anesthesia Volume Adjustment - Provider: Ebony Echols CRNA)1548 (Stopped - Provider: Ebony Echols CRNA) 1,000 mL, at 100 mL/hr, Intravenous, CON TINUOUS, Starting Sun07/23/20 at 1315, Until Sun07/23/20 at 1640, Day of Surgery (Day of Procedure) PRN Medication Order 07/21/2020 07/22/2020 07/23/2020 BUpivacaine (PF) (MARCAINE) 0.5 % (5 mg/mL) injection (CANCELED) 1513 (Given - Provider: Jessica Duenas MD - Comment: 0.5% bupivacaine mixed 1:1 c/ 1% lidocaine for local 23mls total given of the local solution) ONCE PRN, Starting Sun07/23/20 at 1439, Until Sun07/23/20 at 1843, Intra- Operative (Intra-Procedure), Routine lidocaine (PF) (XYLOCAINE) 10 mg/mL (1 %) injection (CANCELED) 1513 (Given - Provider: Jessica Duenas MD - Comment: 0.5% bupivacaine mixed 1:1 c/ 1% lidocaine for local injection. 23 mls total given of the local solution) ONCE PRN, Starting Sun07/23/20 at 1440, Until Sun07/23/20 at 1843, Intra- Operative (Intra-Procedure), Routine traMADoL (Ultram) tablet 50 mg 50 mg, Oral, EVERY 6 HOURS PRN, Starting Sun07/23/20 at 1543, Until Sun07/23/20 at 1843, Pain, Routine documented in this encounter Care Teams Alarm Mechanism Adjuster Relationship Specialty Start Date End Date Maidna Oshea APRN PCP - General Internal Medicine 07/09/20 [address] [place] [address] documented as of this encounter
--- OUTSIDE RECORDS SUMMARY | 2022-07-27 10:13 | XMS_ITS | Encounter Summary ---
:1965 Author Organization [place] [address] Care Team Providers Name Role Phone Madina Oshea APRN Primary Care Provider Encounter Details Date Type Department Care Team Description 02/28/2022 Hospital Encounter Mammography/DXA at Barbie Duenas History of breast [facility] MD Amanda cancer [facility] [address] [place] GENERAL SURGERY [id number] [place], [place] [phone] [facility] Social History Tobacco Use Types Packs/Day Years [...] 03/30/2017 600 mg Tablet hours as needed. emollient base (CREAM BASE Apply topically. 0 TOP) Jeans Cream. Apply to area of radiation twice a day but no less than 2 hours before a treatment. nystatin (MYCOSTATIN) Apply 1 drop 0 06/22/2020 Cream topically as needed. levothyroxine (Synthroid) Take 300 mcg by mouth 0 100 mcg Tablet daily. documented as of this encounter Plan of Treatment Not on filedocumented as of this encounter Procedures Procedure Name Priority Date/Time Associated Diagnosis Comme nts MAMMO SCREENING CAD Routine 02/28/2022 10:18 AM History of kayleen ast Results for this AND NABEEL BILATERAL EDT cancer procedure are in the results section. documented in this encounter Results Mammo Screening Cad and Nabeel Bilateral (02/28/2022 10:18 AM EDT) Anatomical Region Laterality Modality Breast Bilateral Mammography Specimen (Source) Anatomical Location Collection Method / Collectio n Time Received Time / Laterality Volume Narrative 02/28/2022 11:14 AM EDT EXAMINATION: MAMMO SCREENING CAD AND NABEEL BILATERAL REASON FOR EXAM: Screening. History of l eft breast cancer. TECHNIQUE: CC and MLO views were obtaine d of both breasts. Computer aided detection was used. 3D tomosynthesis dimitri ges were obtained in addition to 2D images. COMPARISON: The [facility]. FINDINGS: Breast density: There are scattered area s of fibroglandular density There are no suspicious microcalcificati ons, masses, or areas of distortion. There are post treatment changes in the left breast. CONCLUSION: No mammographic evidence of malignancy. RECOMMENDATION: Routine annual screening . BIRADS CATEGORY 2: BENIGN FINDINGS * ??Regular screening mammograms startin g between age 40 and 50 reduces the risk of from breast cancer. * ??All screening tests have both risks and benefits. These risks and benefits should be assessed for each individual p atient through discussion with their provider to determine their preferred [facility] cancer screening schedule. * ??Women should report any breast parham es to a health care provider right away. * ??Some women, because of their family history, a genetic tendency, or other factors, should be screened with annual breast MRI as well as with mammograms. (The number of women who fall into this category is very small). Patients and health care providers should discuss the history of each patient to decide if earlier screening and/or breast MRI are appropriate. * ??Screening should continue as long as a woman is in good health and is expected to live 10 years or longer. * ??Screening mammography may not detect 10-15% of breast cancers. Thank you for letting us participate in the care of this patient. ??If you are a health care provider and have any questi ons regarding this report, please contact the number below. ??For patients who have questions please contact the health director critical care that requested your imaging first. ? Barbie Duenas MD IMG MAMMO ORDERABLES documented in this encounter Visit Diagnoses Diagnosis History of breast cancer Personal history of malignant neoplasm o f breast documented in this encounter Care Teams Fur Operator Relationship Specialty Start Date End Date Madina Oshea, WINDOWS ARCHITECT PCP - General Internal Medicine 07/09/20 [address] [facility] [address] documented as of this encounter
--- OUTSIDE RECORDS SUMMARY | 2022-07-27 10:13 | XMS_ITS | Encounter Summary ---
:1965 Author Organization [facility] [address] Care Team Providers Name Role Phone Ruthann Osheayce Liz BELLAMY Primary Care Provider Encounter Details Date Type Department Care Team Description 10/14/2020 Notes Only Hematology and Oncology at Darío Jeffrey MD [facility] Felix santiago HEMATOLOGY/[place] [address] [place] [address] [phone] (Wo rk) Social History Tobacco Use Types [...] documented as of this encounter Progress Notes Darío Corey MD - 10/14/2020 7:54 AM EST I have reviewed the patient's record and given personal and/or family history of cancer she should be seen by genetic counselor. This is scheduled for next week. documented in this encounter Plan of Treatment Not on filedocumented as of this encounter Visit Diagnoses Not on filedocumented in this encounter Care Teams International Sourcing Manager Relationship Specialty Start Date End Date Madina Oshea APRN PCP - General Internal Medicine 07/09/[address] [place] [address] documented as of this encounter
--- OUTSIDE RECORDS SUMMARY | 2022-07-27 10:13 | XMS_ITS | Encounter Summary ---
:1965 Author Organization [facility] Address [facility] [place] [address] Care Team Providers Name Role Phone Madina Oshea APRN Primary Care Provider Encounter Details Date Type Department Care Team Description 10/31/2021 Orders Only Hematology and Arjun Saleh Malignan t neoplasm of Oncology at [facility] MD overlapping sites of One [facility] lef t breast in female, [place] [address] HEMATOLOGY/ONCOLOG positive [phone] Y DEPT[address] [place], [place] [address] Social History Tobacco Use Types [...] filedocumented as of this encounter Visit Diagnoses Diagnosis Malignant neoplasm of overlapping sites of left breast in female, estrogen receptor positive documented in this encounter Care Teams General Car Supervisor Yard Relationship Specialty Start Date End Date Madina Oshea APRN PCP - General Internal Medicine 07/09/20 [address] [place] [address] documented as of this encounter
--- OUTSIDE RECORDS SUMMARY | 2022-07-27 10:13 | XMS_ITS | Encounter Summary ---
:1965 Author Organization [facility] [place] [address] Care Team Providers Name Role Phone Madina Oshea APRN Primary Care Provider Encounter Details Date Type Department Care Team Description 07/16/2020 Notes Only Care Management Anisha Cifuentes, [place] [address] Social History Tobacco Use Types Packs/Day Years Used Date Never Smoker Smokeless Tobacco: Never Used Sex Assigned at Date Recorded Not on file documented as of this encounter Progress Notes Anisha Cifuentes, ALEXIS - 07/16/2020 11:59 PM EDT DONNIE/AURA met with pt in the multidisciplinary breast care clinic as she was recently diagnosed with ER/TN+, low garde, left breast, IDC with lobular features. Pt met with Dr. Barajas and has decided to have a lumpectomy/SLNB followed by radiation therapy which she will receive at the [facility] [place]. Pt lives in [facility] with her , Armand. She has support from family and friends andwas accompanied to today's appt by her . 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 She has been working from home because of the coronavirus and has medical coverage from / of [place]. Pt indicated her distress level was an 8 prior to meeting with Dr. Barajas and a 3 after. I explained my role to pt and encouraged her to contact me with any questions or concerns. P- [facility] will continue to provide support and resources to pt. documented in this encounter Plan of Treatment Not on filedocumented as of this encounter Visit Diagnoses Not on filedocumented in this encounter Care Teams Assignment Officer Relationship Specialty Start Date End Date Madina Oshea APRN PCP - General Internal Medicine 07/09/[address] [place] [address] documented as of this encounter
--- OUTSIDE RECORDS SUMMARY | 2022-07-27 10:13 | XMS_ITS | Encounter Summary ---
:1965 Author Organization [facility] Address [facility] [address] [place] [address] Care Team Providers Name Role Phone Madina Oshea APRN Primary Care Provider Encounter Details Date Type Department Care Team Description 10/11/2020 Orders Only Hematology and Arjun Saleh Malignan t neoplasm of Oncology at [facility] MD overlapping sites of One [facility] lef t breast in female, [place] [address] HEMATOLOGY/ONCOLOG positive [phone] Y DEPT. 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 She completes her adjuvant radiotherapy on October 19. I recommended the use of five years of the aromataseinhibitor anastrozole, and I had confirmed on August 12 that she was post-menopausal based on a low estradiol and high FSH. I discussed the side effects of anastrozole which may include hot flashes, night sweats, mood swings, vaginal dryness, arthralgias, nausea, and loss of bone density. I would follow her bone density with Dexa scans every two years, and I would have her start a bisphosphonate if her T scores should fall below -2.0. Anastrozole may also increase her cholesterol level by about 10% and it may increase her blood pressure. Although the side effects of anastrozole are fairly common, they are rarely severe, and I encouraged her to contact me if she should have any bothersome side effects from it so I might help her manage them. I will send the prescription for anastrozole to [facility] in [facility], and she will start it on November 02. I will plan on seeing her next in followup in January or February, she will have a baseline Dexa scan done then, and we will coordinate that appointment with Dr. Duenas and with her next mammograms. Arjun Saleh MD art editor in Hematology-Oncology documented in this encounter Plan of Treatment Not on filedocumented as of this encounter Visit Diagnoses Diagnosis Malignant neoplasm of overlapping sites of left breast in female, estrogen receptor positive documented in this encounter Care Teams Casino Cage Supervisor Relationship Specialty Start Date End Date Madina Oshea APRN PCP - General Internal Medicine 07/09/20 [address] [place] [address] documented as of this encounter
--- OUTSIDE RECORDS SUMMARY | 2022-07-27 10:13 | XMS_ITS | Encounter Summary ---
:1965 Author Organization [facility] [place] [address] Care Team Providers Name Role Phone Dayo Madinakuldip Hill APRN Primary Care Provider Reason for Referral Consultation (Routine) - Closed Specialty Diagnoses / Procedures Referred By Contact Refer red To Contact Radiation Oncology Diagnoses Malignant neoplasm of central portion of left female breast, unspecified estrogen receptor status Janay Burt MD [facility] Rad Onc Office Procedures Simulation for Radiation Therapy Planning [address] [place] [phone] Fax: Referral ID Status Reason Start Date Expiration Date Visits V isits Requested Authorized [id number] Closed Consult, 08/16/2020 08/16/2021 99 99 Test & Treat Reason for Visit Reason Comments Radiation Consult Consultation (Routine) - Closed Specialty Diagnoses / Procedures Referred By Contact Refer red To Contact Radiation Oncology Diagnoses Breast cancer [facility] Rad On[facility] Office [address] [place] [address] [place] [address] Phone: Fax: Referral ID Status Reason Start Date Expiration Date Visits Requ ested Visits Authorized [id number] Closed 07/27/2020 07/27/2021 1 1 Encounter Details Date Type Department Care Team Description 08/16/2020 Office Visit Radiation Oncology at Eva Burt MD Malignant neoplasm of central portion of left female breast, unspecified estrogen receptor status; [facility] Flu vaccine need [address] [place], [place] RADIATION ONCOL OGY [address] [place] [address] [phone] Social History Tobacco Use Types Packs/Day Years [...] Sign Reading Time Taken Comments Blood Pressure 149/83 08/16/2020 8:54 AM EDT Pulse 65 08/16/2020 8:54 AM EDT Temperature 36.3 ??C (97.3 ??F) 08/16/2020 8:54 AM EDT Respiratory Rate 18 08/16/2020 8:54 AM EDT Oxygen Saturation 97% 08/16/2020 8:54 AM EDT Inhaled Oxygen Concentration - - Weight 108.1 kg (238 lb 6.4 oz) 08/16/2020 8:54 AM EDT Height - - Body Mass Index 36.77 08/12/2020 12:59 PM EDT documented in this encounter Patient Instructions Patient InstructionsJanay Burt MD - 08/16/2020 9:00 AM EDT Someone will call you to schedule CTsimulation to be done T., 09/07/20. documented in this encounter Progress Notes Heather Sena RN - 08/16/2020 9:00 AM EDT RADIATION ONCOLOGY NURSING INITIAL NURSING ASSESSMENT IDENTIFICATION: Martha Hansen is a 54 y.o. year-old female with newly diagnosed left breast cancer. PRESENTING SYMPTOMS/CHIEF COMPLAINT: Presented with abnormal screening mammogram. REVIEW OF SYSTEMS: Review of Systems Constitutional: Positive for fatigue. Negative for appetite change and unexpected weight change. Respiratory: Negative for cough and shortness of breath. Cardiovascular: Negative for chest pain. Gastrointestinal: Negative for nausea and vomiting. Musculoskeletal: Negative for back pain and gait problem. Skin: Positive for wound (s/p left partial mastectomy, SLNB). Neurological: Negative for dizziness, gait problem, headaches and light-headedness. Psychiatric/Behavioral: Confusion: sleeping improving. IN THE PAST 12 MONTHS HAVE YOU: Fallen more than one time? No Injured yourself as result of the fall? N/A Experienced difficulty with walking/problems with balance? No Do you use any assistive devices? No Any history of collagen vascular diseases:No Any Implanted Devices/Hardware: No If yes please put alert in ARIA patient summary Prior Radiotherapy: No Prior Chemotherapy: No Prior Hormone Therapy: No LEARNING ASSESSMENT REVIEWED: Yes ADVANCED DIRECTIVE: Not addressed this visit PAIN ASSESSMENT: 0 out of 10 *eD-H Adult PCS Flow Sheet if 4 or above SOCIAL ASSESSMENT: See EDH social assessment information entered. Support Systems: Family. Here today with Armand Barriers to treatment: None identified. Referrals/Interventions: COUNTERINTELLIGENCE AGENT per routine. RADIATION SPECIFIC TEACHING: [facility] Radiation Therapy and You Site specific teaching : Site specific teaching to be done by nursing on day of simulation. Other: PLAN: Per Dr. Burt Janay Burt MD - 08/16/2020 9:00 AM EDT Images from the original note were not included. CC: Referred by Makayla Oshea APRN, for eval for xrt for breast ca. HPI: Martha is a 54 y/o f who presented w/L breast abnlty on screening mmg. DH interp 06/28/20 B screening mmg & 06/30/20 dx'ic L mmg & L breast US: Highly suspicious 1.2cm architectural distortion in L breast @ 12:00, middle third, 4.5 cm from nipple. R breast neg. 07/05/20 L breast US: 1.1 cm irregular mass @ 12:00, 4 cm from nipple. 07/05/20 US guided core needle bx 1.1 cm irregular L breast mass @ 12:00, 4 cm from nipple. Path: Invasive ca w/ductal & lobular features, ER+KY+, Her2 FISH neg. 07/09/20 MRI B breasts: L breast lesion #1, irregular nonmass enhancement @ 12:00, 4-8 cm from nipple spanning up to 4 cm, known bx proven malignancy. R breast nl. No adenopathy. 07/15/[address] Duenas showed 07/23/20 NLOC L breast lumpectomy, specimen mmg, placement bx cavity clips, partial breast recon & SNB. No palpable adenopathy. Path: ILC, gr 1, 15 mm, RM neg, 2 L axillary sentinel lymph nodes (both neg, 0/2), pT1c pN0. 08/12/[address] Saleh; Oncotype DX pending, referral for genetic testing, discussion about endocrine tx after xrt. Subjective: Healing well. No pain. No swelling hand/arm. ROM arms around shoulders nl. Energy level ok. Accompanied by . No past medical history on file. Hypothyroidism. No prior xrt. No lupus/scleroderma. Past Surgical History: Procedure Laterality Date ??? CHOLECYSTECTOMY ??? MAMMO US BIOPSY LEFT Left 07/05/2020 Mammo Us Biopsy Left 07/05/2020 Ashok Simpson MD [facility] RAD MAMMOGRAPHY ??? PRO BX/REMV, LYMPH NODE, DEEP AXILL Left 07/23/2020 BIOPSY OR EXCISION OF LYMPH NODE(S), OPEN, DEEP AXILLARY NODE(S) (WRVU 6.43) performed by Barbie Duenas MD at [facility] OSC ??? PRO INTRAOP SENTINEL LYMPH ID W/DYE INJECTION Left 07/23/2020 INTRAOPERATIVE ID (MAPPING) SENTINEL LYMPH NODE,INCLUDES INJECTION (WRVU 2.5) performed by Barbie Duenas MD at [facility] ??? PRO MASTECTOMY PARTIAL Left 07/23/2020 MASTECTOMY PARTIAL (WRVU 10.13) performed by Barbie Duenas MD at [facility] ??? TUBAL LIGATION Your Medications Accurate as of August 16, 2020 9:13 AM. If you have any questions, ask your nurse or doctor. Continued medications, unchanged Dose Details levothyroxine 100 mcg Tab Commonly known as: Synthroid Take 300 mcg by mouth daily. 300 mcg Refills: 0 nystatin Crea Commonly known as: MYCOSTATIN Apply 1 drop topically as needed. 1 drop Refills: 0 P&SHx: Never smoker. Physical Exam Constitutional: General: She is not in acute distress. Comments: BP 149/83 (Patient Position: Sitting) Pulse 65 Temp 36.3 ??C (97.3 ??F) (Temporal) Resp 18 Wt 108.1 kg (238 lb 6.4 oz) SpO2 97% BMI 36.77 kg/m?? HENT: Head: Normocephalic. Eyes: General: No scleral icterus. Right eye: No discharge. Left eye: No discharge. Extraocular Movements: Extraocular movements intact. Conjunctiva/sclera: Conjunctivae normal. Neck: Musculoskeletal: Normal range of motion and neck supple. Pulmonary: Effort: Pulmonary effort is normal. No respiratory distress. Breath sounds: No stridor. Chest: Breasts: Right: No inverted nipple, mass, nipple discharge, skin change or tenderness. Left: No inverted nipple, mass, nipple discharge, skin change or tenderness. Abdominal: General: There is no distension. Palpations: Abdomen is soft. There is no mass. Tenderness: There is no abdominal tenderness. There is no guarding or rebound. Musculoskeletal: Normal range of motion. General: No swelling or tenderness. Lymphadenopathy: Head: Right side of head: No [...] Content: Thought content normal. Judgment: Judgment normal. A: Breast ca, L, ILC, gr 1, ER+KY+, Her2 neg, s/p lumpectomy & SNB, pT1c pN0. P: Xrt to L breast rec'd to increase likelihood of ca control. Xrt would be comprised of 20 fxs. Possible side effects of xrt to breast discussed, w/acute/immediate side effects including: Pinkening, soreness & peeling of skin in treated area; swelling of treated breast; soreness of treated breast; cough; shortness of breath; tiredness. Late/prison side effects to breast discussed include: Treated breast may shrink, become firmer & sit higher on chest; achiness/stiffness of chest wall on treated side; slight increase in small risk of dying of heart disease (from 1.9% to 2.4%) in women irradiated to L breast/chest; rib fractureon treated side; CT after xrt may show scarring w/in small volume of lung on treated side; very small risk of radiotherapy associated 2nd malignancy. Need for CTsim prior to xrt discussed. At CTsim she would be assessed for use of deep inspiration breath hold (DIBH) to decrease xrt dose to heart. She would like to proceed w/xrt & will return 09/07/20 for CTsim, which should give enough time for Oncotype DX & discussion w/Dr. Saleh regarding whether chemo recommended. Dr. Duenas 08/19/20. P 10/18/20. 25 mins of 40 min face to face visit w/Martha spent discussing rationale for xrt; hoped for benefit of xrt; possible side effects/complications of xrt; prevention/management of side effects/complications of xrt; logistics of daily xrt; CTsimulation w/eval for DIBH; arm position required for xrt; followup after completion of xrt. Radiation cho:Solano protocol and Whole breast w/ tangents Radiation boost:Yes Total dose of radiation: 52.56 Gy documented in this encounter Plan of Treatment Scheduled Orders Name Type Priority Associated Diagnoses Order S chedule Simulation for Procedures Routine Malignant neoplasm of Orde red: 08/16/2020 Radiation Therapy central portion of left Planning female breast, unspecified estrogen receptor status documented as of this encounter Visit Diagnoses Diagnosis Malignant neoplasm of central portion of left female breast, unspecified estrogen receptor status Flu vaccine need Need for prophylactic vaccination and in oculation against influenza documented in this encounter Care Teams Wharf Builder Relationship Specialty Start Date End Date Madina Oshea APRN PCP - General Internal Medicine 07/09/[address] [place] [address] documented as of this encounter
--- OUTSIDE RECORDS SUMMARY | 2022-07-27 10:13 | XMS_ITS | Encounter Summary ---
:1965 Author Organization [facility] [place] [address] Care Team Providers Name Role Phone Dayo, Madinakuldip Hill APRN Primary Care Provider Encounter Details Date Type Department Care Team Description 09/07/2020 Notes Only Rad[facility] [address] [place] [address] [phone] Social History Tobacco Use Types Packs/Day Years [...] documented as of this encounter Progress Notes Radha Hernandez MSW - 09/07/2020 9:20 AM EST Reason for Referral: Brief assessment of social and emotional needs. Met with pt after her sim today. Reviewed noted from ALEXIS Hobson. Social Supports: Pt identified her of 32 years as her primary support. They have a son and adaughter and both thive in the area. Pt indicated she has good friends. Living Situation/Daily Activities/Transportation: Pt manages her daily chores and activities. She lives local and does not expect any issues with transportation. 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 She has BCBS for insurance. Advance Directives: Pt has not completed her advance directive. She indicated she does have the information at home. Offered to assist pt in completing her document if she is interested. Utilization of Community Resources: None at this time. Adjustment to Illness/Mental Health Issues: Pt shared she never though she would be diagnosed with cancer. She was a bit weepy. She indicated her is doing fairly well but his mother from cancer. She indicated her children are doing fairly well. She has had several friends go through treatment. She feels she has good support from her family and friends. Identified Needs: Pt did not identify any specific needs at this time. Referrals: None at this time. Plan: Informed pt of PRINT DEVELOPER availability and will follow for support and resources. documented in this encounter Plan of Treatment Not on filedocumented as of this encounter Visit Diagnoses Not on filedocumented in this encounter Care Teams Account Officer Relationship Specialty Start Date End Date Madina Oshea APRN PCP - General Internal Medicine 07/09/[address] [place] [address] documented as of this encounter
--- OUTSIDE RECORDS SUMMARY | 2022-07-27 10:13 | XMS_ITS | Encounter Summary ---
:1965 Author Organization [facility] [place] [address] Care Team Providers Name Role Phone Madina Oshea APRN Primary Care Provider Reason for Visit Reason Comments On Treatment Visit Encounter Details Date Type Department Care Team Description 10/12/2020 Office Visit Radiation Oncology at [facility], Eva Bailey MD Hormone receptor [facility] positive malignant [address] neoplasm of left [place], [place] RADIATION ONCOL OGY breast [address] [place] [address] [phone] Social History Tobacco Use Types Packs/Day Years [...] Sign Reading Time Taken Comments Blood Pressure 154/72 10/12/2020 12:13 PM EST Pulse 69 10/12/2020 12:13 PM EST Temperature 36.5 ??C (97.7 ??F) 10/12/2020 12:13 PM EST Respiratory Rate 20 10/12/2020 12:13 PM EST Oxygen Saturation 98% 10/12/2020 12:13 PM EST Inhaled Oxygen Concentration - - Weight 110.6 kg (243 lb 13.3 oz) 10/12/2020 12:13 PM EST Height 170.2 cm (5' 7) 10/12/2020 12:13 PM EST Body Mass Index 38.19 10/12/2020 12:13 PM EST documented in this encounter Progress Notes Janay Burt MD - 10/12/2020 12:15 PM EST Images from the original note were not included. DIAGNOSIS: Breast ca, L, ILC, gr 1, ER+WA+, Her2 neg, s/p lumpectomy & SNB, pT1c pN0. CURRENT TREATMENT DOSE: 39.9 Gy L breast ANTICIPATED TOTAL DOSE: 42.56 Gy L breast, 52.56 Gy lumpectomy bed Current # of xrt received: 15 L breast Anticipated total # of xrt txs: 16 L breast, 20 lumpectomy bed Evaluation of port verification films: Approved. For details, see electronic film record in IRI System. Changes in Medical Condition: Intermittent mild burning sensation lateral L breast. Pain?: As above. Your Medications Accurate as of October 12, 2020 12:33 PM. If you have any questions, ask your nurse or doctor. Continued medications, unchanged Dose Details anastrozole 1 mg Tab Commonly known as: Arimidex Take 1 tablet by mouth daily. Start on November 02, 2020. Start taking on: November 02, 2020 1 mg Quantity: 90 tablet Refills: 3 CREAM BASE TOP Apply topically. Jeans Cream. Apply to area of radiation twice a day but no less than 2 hours beforea treatment. Refills: 0 levothyroxine 100 mcg Tab Commonly known as: Synthroid Take 300 mcg by mouth daily. 300 mcg Refills: 0 nystatin Crea Commonly known as: MYCOSTATIN Apply 1 drop topically as needed. 1 drop Refills: 0 Physical Exam: BP 154/72 (Patient Position: Sitting) Pulse 69 Temp 36.5 ??C (97.7 ??F) (Temporal) Resp 20 Ht 170.2 cm (5' 7) Wt 110.6 kg (243 lb 13.3 oz) SpO2 98% BMI 38.19 kg/m?? A&Ox3, NAD. L breast w/mild erythema. Amb stable. Interval Imaging: None Performance Status: KPS 100% Response to xrt: As expected. Irradiation Related Symptoms: Skin rxn. Treatment for Symptom Control: Abraham's cream. Pain Management: Not needed. Recommendation on Continuing Course of xrt: Cont. documented in this encounter Plan of Treatment Not on filedocumented as of this encounter Visit Diagnoses Diagnosis Hormone receptor positive malignant neop lasm of left breast documented in this encounter Care Teams Transportation Worker Relationship Specialty Start Date End Date Madina Oshea APRN PCP - General Internal Medicine 07/09/[address] [place] [address] documented as of this encounter
--- OUTSIDE RECORDS SUMMARY | 2022-07-27 10:13 | XMS_ITS | Encounter Summary ---
:1965 Author Organization [facility] [place] [address] Care Team Providers Name Role Phone Madina Oshea APRN Primary Care Provider Encounter Details Date Type Department Care Team Description 07/23/2020 Hospital Encounter Mammography at [facility] Barbie Duenas Malignant neoplasm [facility] MD Amanda of left female Drive [facility] breast, unspecified [place], [place] CENTER estrogen receptor [id number] GENERAL SURGERY status, unspecified [phone] [place], [place] site of breast [address] Social History Tobacco Use Types Packs/Day Years [...] documented as of this encounter Progress Notes Gemma Juan MD - 07/22/2020 4:42 PM EDT Pre-procedure note for needle breast biopsies performed in radiology. Procedure date: Tomorrow Procedure type: left breast NLOC and sentinel node injection Allergies: Patient has no known allergies. Medications: Current Outpatient Medications: ??? levothyroxine (Synthroid) 100 mcg Tablet, Take 300 mcg by mouth daily., Disp: , Rfl: Anticoagulation status: none stopped on: N/A Imaging reviewed and procedural plan approved by Dr. Gemma Juan MD documented in this encounter Plan of Treatment Not on filedocumented as of this encounter Procedures Procedure Name Priority Date/Time Associated Diagnosis Comme nts MAMMO NEEDLE Routine 07/23/2020 11:14 Malignant neoplasm Resul ts for this LOCALIZATION LEFT AM EDT of left female procedur e are in breast, unspecified the resu lts estrogen receptor section. status, unspecified site of breast documented in this encounter Results Mammo Needle Localization Left (07/23/2020 11:14 AM EDT) Anatomical Region Laterality Modality Breast Left Mammography Specimen (Source) Anatomical Location Collection Method / Collectio n Time Received Time / Laterality Volume Impressions 07/23/2020 12:07 PM EDT Impression: Status post successful preoperative mammographically guided wire localization with sentinel node injectio n. The radiotracer injection was administer ed under the supervision of authorized user Dr. Rajendra Brasher. Preliminary report signed by: Gemma Juan at 07/23/2020 11:33 AM I have personally reviewed the image(s) and the resident's interpretation and agree with the findings, Mary Ellen becker MD at 07/23/2020 12:07 PM Thank you for letting us participate in the care of this patient. For questions regarding this report, please contact e number below. ? Narrative 07/23/2020 12:07 PM EDT NEEDLE LOCALIZATION OF LESION IN THE LEFT BREAST AND SENTINEL NODE INJECTION CLINICAL HISTORY: Please needle localize left breast for cancer lesion 54-year-old female with invasive carcino ma in the left breast, 12:00 radian, 4 cm from the nipple A time out procedure was performed per hospital protocol to verify correct identity, procedure and laterality. Following skin cleansing and injection o f less than 5 cc's of 1% lidocaine, a needle localization of the clip and mass ??was performed from the lateral approach with mammographic guidance. Aft er the needle was confirmed to be in appropriate position the wire was deploy ed. Images were annotated on PACS for the op erating surgeon. A sentinel node injection was performed using less than 0.3 milliCuries of Tc-99m sulfur colloid. ??Half the dose w as injected subcutaneously and half injected intradermally. No additional im aging was performed. Procedural attestation: Resident: Gemma Juan MD I was present with the resident for the mckeon component(s) of the procedure and otherwise remained immediately available for the duration of the procedure. I attest to having personally viewed the i mages/test and approve the above interpretation. Barbie Duenas MD IMG MAMMO ORDERABLES documented in this encounter Visit Diagnoses Diagnosis Malignant neoplasm of left female breast , unspecified estrogen receptor status, unspecified site of breast documented in this encounter Administered Medications Inactive Administered Medications - up to 3 most recent administrations Medication Order MAR Action Action Date Dose Rate Site lidocaine (XYLOCAINE) 10 mg/mL (1 Given 07/23/2020 11:10 AM EDT 10 mg %) injection 10 mg 10 mg, Intradermal, ONCE, 1 dose, On Sun07/23/20 at 1130, Routine documented in this encounter Care Teams Cable Tool Operator Relationship Specialty Start Date End Date Madina Oshea APRN PCP - General Internal Medicine 07/09/20 [address] [place] [address] documented as of this encounter
--- OUTSIDE RECORDS SUMMARY | 2022-07-27 10:13 | XMS_ITS | Encounter Summary ---
:1965 Author Organization [facility] [place] [address] Care Team Providers Name Role Phone Madina Oshea APRN Primary Care Provider Encounter Details Date Type Department Care Team Description 07/23/2020 Hospital Encounter Mammography at [facility] Barbie Duenas Malignant neoplasm [facility] MD Amanda of left female Drive [facility] breast, unspecified [place], [place] CENTER estrogen receptor [id number] GENERAL SURGERY status, unspecified [phone] [place], [place] site of breast [address] Social History Tobacco Use Types Packs/Day Years [...] Priority Date/Time Associated Diagnosis Comme nts MAMMO SENTINEL NODE Routine 07/23/2020 11:18 AM Malignant neop lasm Results for this INJECTION EDT of left female procedure are in breast, unspecified the resu lts estrogen receptor section. status, unspecified site of breast documented in this encounter Results Mammo [place] Node Injection (07/23/2020 11:18 AM EDT) Anatomical Region Laterality Modality Breast N/A Mammography Specimen (Source) Anatomical Location Collection Method [...] MAR Action Action Date Dose Rate Site technetium (Tc-99m) sulfur Given 07/23/2020 11:15 AM EDT 1.7 mCi colloid injection 1.7 mCi 1.7 mCi, Intradermal, ONCE PRN, 1 dose, Starting on Sun07/23/20 at 1115, Until Sun07/23/20 at 1115, Per Protocol, Routine documented in this encounter Care Teams Curtain Mender Relationship Specialty Start Date End Date Madina Oshea APRN PCP - General Internal Medicine 07/09/[address] [place] [address] documented as of this encounter
--- OUTSIDE RECORDS SUMMARY | 2022-07-27 10:13 | XMS_ITS | Encounter Summary ---
:1965 Author Organization [facility] [address] Care Team Providers Name Role Phone Madina Oshea APRN Primary Care Provider Encounter Details Date Type Department Care Team Description 08/24/2020 [facility] H[facility] [address] DEPT. [phone] [place], [place] [address] (Wo rk) Social History Tobacco [...] this encounter Miscellaneous Notes Telephone Encounter - Arjun aSleh MD - 08/24/2020 6:26 PM EDT Heme-Onc Staff I spoke with Martha Hansen by phone tonight. Her Oncotype Score came back at 17, which means that she would derive zero benefit from the use of adjuvant chemotherapy. I would therefore recommend that she not receive chemotherapy, and she accepted my recommendation. She may proceed with her radiotherapy, and I will let Dr. Burt know. I will contact her near the end of her radiotherapy to discuss getting started with anastrozole. Arjun Saleh MD home health clinical supervisor in Hematology-Oncology documented in this encounter Plan of Treatment Not on filedocumented as of this encounter Visit Diagnoses Not on filedocumented in this encounter Care Teams Customer Service Leader Relationship Specialty Start Date End Date Madina Oshea APRN PCP - General Internal Medicine 07/09/[address] [place] [address] documented as of this encounter
--- OUTSIDE RECORDS SUMMARY | 2022-07-27 10:13 | XMS_ITS | Encounter Summary ---
:1965 Author Organization [facility] [place] [address] Care Team Providers Name Role Phone Madina Oshea APRN Primary Care Provider Encounter Details Date Type Department Care Team Description 10/05/2020 Office Visit Radiation Oncology at [facility], Malignant neoplasm of Millicent SOUZA overlapping sites of [address] [place] [address] left breast in female, [place] estrogen receptor [phone] RADIATION ONCOLOGY positive [phone] [place], [place] [address] Social History Tobacco Use Types [...] Sign Reading Time Taken Comments Blood Pressure 150/87 10/05/2020 12:40 PM EST Pulse 64 10/05/2020 12:40 PM EST Temperature 36.5 ??C (97.7 ??F) 10/05/2020 12:40 PM EST Respiratory Rate 16 10/05/2020 12:40 PM EST Oxygen Saturation 99% 10/05/2020 12:40 PM EST Inhaled Oxygen Concentration - - Weight 110.4 kg (243 lb 6.4 oz) 10/05/2020 12:40 PM EST Height - - Body Mass Index 37.54 08/19/2020 11:06 AM EDT documented in this encounter Progress Notes Felix Conway MD - 10/05/2020 12:30 PM EST Images from the original note were not included. DIAGNOSIS: Breast ca, L, ILC, gr 1, ER+LA+, Her2 neg, s/p lumpectomy & SNB, pT1c pN0. CURRENT TREATMENT DOSE: 26.6 Gy L breast ANTICIPATED TOTAL DOSE: 42.56 Gy L breast, 52.56 Gy lumpectomy bed Current # of xrt received: 10 L breast Anticipated total # of xrt txs: 16 L breast, 20 lumpectomy bed Evaluation of port verification films: Approved. For details, see electronic film record in [facility] System. Changes in Medical Condition: None. Pain?: No Your Medications Accurate as of October 05, 2020 12:43 PM. If you have any questions, ask your nurse or doctor. Continued medications, unchanged Dose Details CREAM BASE TOP Apply topically. Jeans Cream. Apply to area of radiation twice a day but no less than 2 hours beforea treatment. Refills: 0 levothyroxine 100 mcg Tab Commonly known as: Synthroid Take 300 mcg by mouth daily. 300 mcg Refills: 0 nystatin Crea Commonly known as: MYCOSTATIN Apply 1 drop topically as needed. 1 drop Refills: 0 Physical Exam: There were no vitals taken for this visit. A&Ox3, NAD. L breast w/o erythema. Ambstable. Interval Imaging: None Performance Status: KPS 100% Response to xrt: As expected. Irradiation Related Symptoms: None. Treatment for Symptom Control: Abraham's cream. Pain Management: Not needed. Recommendation on Continuing Course of xrt: Cont. Cc: Makayla Oshea APRN documented in this encounter Plan of Treatment Not on filedocumented as of this encounter Visit Diagnoses Diagnosis Malignant neoplasm of overlapping sites of left breast in female, estrogen receptor positive documented in this encounter Care Teams Petroleum Engineering Professor Relationship Specialty Start Date End Date Madina Oshea APRN PCP - General Internal Medicine 07/09/[address] [place] [address] documented as of this encounter
--- OUTSIDE RECORDS SUMMARY | 2022-07-27 10:13 | XMS_ITS | Encounter Summary ---
:1965 Author Organization [facility] [place] [address] Care Team Providers Name Role Phone Dayo, Madinakuldip Hill APRN Primary Care Provider Reason for Visit Auth/Cert [...] Expiration Date Visits Requ ested Visits Authorized [id number] 1 1 Encounter Details Date Type Department Care Team Description 07/23/2020 Hospital Encounter Outpatient Surgery Jessica Duenas, Amy Vasquez MD [facility] [address] [place] [address] [place] [id number] [phone] (Wo rk) Social History Tobacco Use Types [...] Sign Reading Time Taken Comments Blood Pressure 161/64 07/23/2020 4:30 PM EDT Pulse 64 07/23/2020 4:30 PM EDT Temperature 36.4 ??C (97.5 ??F) 07/23/2020 3:46 PM EDT Respiratory Rate 20 07/23/2020 4:30 PM EDT Oxygen Saturation 96% 07/23/2020 4:30 PM EDT Inhaled Oxygen Concentration - - Weight 105.2 kg (232 lb) 07/23/2020 12:42 PM EDT Height 170.2 cm (5' 7) 07/23/2020 12:42 PM EDT Body Mass Index 36.34 07/23/2020 12:42 PM EDT documented in this encounter Discharge Instructions Discharge InstructionsKirstin Abrams RN - 07/23/2020 2:01 PM EDT Okay to shower 24 hours Activity as tolerated Call [phone] with any questions Do not soak incision for 2 weeks Will call with pathology results when available Ice pack to breast as needed Okay to use tylenol and/or ibuprofen as needed for pain (Recommend taking 650 mg of tylenol and 400 mg ibuprofen every 6 hours as needed) Wear bra for comfort (you may want to wear / until swelling improves) At 1 pm you [...] closest emergency room or call the hospital drier operator helper at [phone] and ask for physician regional property manager covering for your physician. Questions or problems after 5pm or on a weekend: Call the [facility] drier operator helper at and ask for the physician regional property manager covering for your doctor. You should not [...] pt and verbalized understanding, has herdischarge instructions 164-- pt ambulated to the bathroom then out to private car assisted by x1 nursing staff Sarah Mantilla RN - 07/23/2020 3:46 PM EDT Arrived OSC #16, bra binder in place, with fluffs over left, D/I, left arm pit incision open to air with gauze 3x3 [address] Ana Lilia Zapien RN - 07/22/2020 1:04 PM EDT During this call the patient was questioned regarding travel outside of [facility], fever, cough, SOB or other illness in [...] again, temperature will be taken, patient and caregiver/dedicated regional driver will be given a mask to [...] a low grade IDC which is strongly Er/CT+ and her2-. ?? MRI was performed for [...] Duenas MD - 07/23/2020 3:43 PM EDT [facility] Operative Note Patient Name: Martha Hansen : [id number] MR#: [id number] Case Date: 07/23/2020 Surgeon: Surgeon(s) and Role: [...] PM 0 3:09 EDT PM EDT Narrative [facility] - 07/23/2020 3:09 PM EDT Specimen requisition ordered. ??Separate Pathology report to follow Jessica Duenas MD PATHOLOGY/CYTOLOGY ORDERABLE S Performing Organization Address City/State/[place] [address] Specimen to Pathology (07/23/2020 3:09 PM EDT) Specimen Anatomical Collection Method Collection Time Receive d Time (Source) Location / / Volume Laterality AP Specimen 07/23/2020 3:09 PM 0 3:09 EDT PM EDT Narrative [facility] - 07/23/2020 3:09 PM EDT Specimen requisition ordered. ??Separate Pathology report to follow Jessica Duenas MD PATHOLOGY/CYTOLOGY ORDERABLE S Performing Organization Address City/State/[place] [address] Specimen to Pathology (07/23/2020 3:09 PM EDT) Specimen Anatomical Collection Method Collection Time Receive d Time (Source) Location / / Volume Laterality AP Specimen 07/23/2020 3:09 PM 0 3:09 EDT PM EDT Narrative [facility] - 07/23/2020 3:09 PM EDT Specimen requisition ordered. ??Separate Pathology report to follow Jessica Duenas MD PATHOLOGY/CYTOLOGY ORDERABLE S Performing Organization Address City/[facility] [place] [address] Specimen to Pathology (07/23/2020 3:03 PM EDT) Specimen Anatomical Collection Method Collection Time Receive d Time (Source) Location / / Volume Laterality AP Specimen 07/23/2020 3:03 PM 0 3:03 EDT PM EDT Narrative [facility] - 07/23/2020 3:03 PM EDT Specimen requisition ordered. ??Separate Pathology report to follow Jessica Duenas MD PATHOLOGY/CYTOLOGY ORDERABLE S Performing Organization Address City/[facility]/ZIP Code Phon e Number [address] Specimen to Pathology (07/23/2020 2:43 PM EDT) Specimen Anatomical Collection Method Collection Time Receive d Time (Source) Location / / Volume Laterality AP Specimen 07/23/2020 2:43 PM 0 2:43 EDT PM EDT Narrative [facility] - 07/23/2020 2:43 PM EDT Specimen requisition ordered. ??Separate Pathology report to follow Jessica Duenas MD PATHOLOGY/CYTOLOGY ORDERABLE S Performing Organization Address City/[facility] [place] [address] Surgical Pathology Report (07/23/2020 2:42 PM EDT) Component Value Ref Test Analysis Performed At [facility] gist Range Method Time Signature Surgical ? Location: [facility] The signing pathologist has (i) examined the relevant preparation(s) for the [facility] specimen(s) and (ii) rendered or confirmed the diagnosis(es) . HOSPITAL LABORATORY . ? Addendum ADDENDUM DISCUSSION SPECIAL TEST PERFORMED: Test: ??Oncotype DX [facility] Case: ??[id number], block A10 Performing Lab: ??[facility] Performing Lab Case: ??[id number] Reported by: ??Ramsey Payne MD Date reported: ??08/24/2020 For the full text of the [facility] report please refer to Non- Documentation Pathology in the electronic health record (eDH). Electronically signed by: ??Flower Mendes DO Verified: ??09/06/2020 ?Pathologist Performed at: ??-[facility] Dept. of Pathology, [place], [place] ?Surgic al Pathology DIAGNOSIS A - [...] Mendes DO Verified: ??08/03/2020 ?Pathologist Performed at: ??-[facility] Dept. of Pathology, [place], [place] SYNOPTIC Specimen Parts: ??A, B Specimen [...] ??Uninvolved by tumor sunita ls ?Number of [place] Nodes Examined: ??2 Pathologic Stage Classification (pTNM, AJCC 8th Edition) ? Primary Tumor (pT): ??pT1c ? Regional Lymph Nodes (pN): ??pN0 Tumor Block(s): ??A10 CAP eCC December 2019 Annual Release ER, CT, and HER2 studies (performed on prior biopsy, [id number]): ER: Positive (>90%, strong) CT: Positive (80-90%, strong) HER2 FISH: Negative ADDITIONAL [...] interspersed wisps of white breast tissue. Sections/Processing: Lamp Mechanic sections in 14 cassettes as follows: ?A1: ??Lamp Mechanic I, medial-red ?A2: ??Lamp Mechanic II, with anterior-blue and vascular ultrasound technologist ior-black ?A3: ??Lamp Mechanic III, inferior-green ?A4: ??Lamp Mechanic III, anterior-blue ?A5: ??Lamp Mechanic III, posterior-black ?A6: ??Lamp Mechanic III, superior-orange ?A7: ??Lamp Mechanic IV, inferior-green ?A8: ??Lamp Mechanic IV, posterior-black ?A9: ??Lamp Mechanic IV, anterior-blue ?A10: ??Lamp Mechanic V, anterior-blue, includes marke r clip site ?A11: ??Lamp Mechanic V, with inferior-green and poste rior-black ?A12: ??Lamp Mechanic , anterior-blue ?A13-A14: ??Lamp Mechanic VIII, lateral-yellow Ischemic Time: 1.2 hours B [...] Labeled/Fixative: Left breast additional deep margin, fr [facility]. Quantity/Size: Single, 2.5 x 1.8 x [...] Organization Address City/State/[place] [address] documented in this encounter [...] Day of Surgery (Day of Procedure), Routine lactated ringers infusion New Bag 07/23/2020 1:15 PM EDT 1,000 mLs 100 mL/hr 1,000 mL, at 100 mL/hr, Intravenous, CONTINUOUS, Starting on Sun07/23/20 at 1315, Until Sun07/23/20 at 1640, Day of Surgery (Day of Procedure) traMADoL (Ultram) tablet 50 mg 50 mg, Oral, EVERY 6 HOURS PRN, Starting on Sun07/23/20 at 1543, Until Sun07/23/20 at 1843, Pain, Routine documented in this encounter Active and Recently Administered Medications Times are shown in EDT. Scheduled Medication Order 07/21/2020 07/22/2020 07/23/2020 acetaminophen (Tylenol) tablet 1,000 mg (COMPLETED) 1259 (Given - Provider: Kirstin Abrams RN) 1,000 mg, Oral, ONCE, 1 dose, [...] Routine documented in this encounter Care Teams Igniter Capper Relationship Specialty Start Date End Date Madina Oshea APRN PCP - General Internal Medicine 07/09/20 [address] [place] [address] documented as of this encounter
--- OUTSIDE RECORDS SUMMARY | 2022-07-27 10:13 | XMS_ITS | Encounter Summary ---
:1965 Author Organization [facility] [place] [address] Care Team Providers Name Role Phone Madina Oshea APRN Primary Care Provider Encounter Details Date Type Department Care Team Description 12/04/2020 Notes Only Hematology and Oncology at [facility] Z[facility] Felix santiago HEMATOLOGY/[place] [address] DEPT. [phone] [place], [place] [address] (Wo rk) Social History Tobacco [...] encounter Progress Notes Lali Go [facility] - 12/04/2020 12:58 PM EST Martha sent me a message that she is ready to proceed with genetic testing. She has requested the multi-cancer panel. I have requested that Fredrickitaisaiah send her a saliva collection kit. I will contact in when results are available, about 3 weeks from when the lab receives the sample. documented in this encounter Plan of Treatment Not on filedocumented as of this encounter Visit Diagnoses Not on filedocumented in this encounter Care Teams Pool Hand Relationship Specialty Start Date End Date Madina Oshea APRN PCP - General Internal Medicine 07/09/[address] [place] [address] documented as of this encounter
--- OUTSIDE RECORDS SUMMARY | 2022-07-27 10:13 | XMS_ITS | Encounter Summary ---
:1965 Author Organization [facility] Address [address] [place] [address] Care Team Providers Name Role Phone Madina Oshea APRN Primary Care Provider Encounter Details Date Type Department Care Team Description 02/28/2022 Office Visit General Surgery at [facility] er for follow- up surveillance of breast cancer; [facility] Krysta Hill APRN Malignant neoplasm of central portion of left breast in female, estrogen receptor positive; [facility] Lym phedema of breast; Marilyn JORDAN Family history of breast cancer in first degree relative; [place], [place] GENERAL SURGERY Breast cancer screening by mammogram [id number] [place] [address] [phone] Social History Tobacco Use Types Packs/Day Years [...] documented as of this encounter Progress Notes Krysta Kessler APRN - 02/28/2022 11:00 AM EDT Patient ID: Martha Hansen is a 56 y.o. female HPI: Martha is a patient of Dr. Duenas with a history of invasive lobular carcinoma in the left breast who returns for annual breast cancer surveillance. She is status post left partial mastectomy and sentinel node excision on July 23, 2020. At today's visit, Martha has no breast concerns and denies any new lumps or bumps in her breasts or axilla. She performs self-breast exams. No nipple discharge or pain in either breast. She denies any headaches, new chest pain or difficulty breathing. No new bony pain or tenderness. She has intentionally lost 13 pounds since November. She denies significant changes to her health since her last visit. Breast cancer history: A screening mammogram on 06/28/2020 noted a suspicious area of architectural distortion in the left upper central breast at 12:00, 4.5 cm from the nipple. An US-guided biopsy revealed invasive carcinoma, ER/MO positive, HER-2 negative. An MRI done for preoperative planning showed a 4 cm irregular area of non-mass enhancement in the left upper breast. Lymph nodes appeared normal. Martha opted for BCT. Pathology revealed ILC with LCIS. She received adjuvant XRT and began taking anastrozole at the end of October 2020. BREAST CANCER NOTES Method of Cancer Detection Screening mammogram 06/28/2020 Menopausal Status at Diagnosis Postmenopausal Date of Diagnostic Biopsy 07/05/2020 Local Surgery Left partial mastectomy Axillary Management SNE ([address] involved) Date of Last Surgical Procedure 07/23/2020 Histology ILC with LCIS Location Left upper central breast Size of Primary Malignancy 15 mm Grade Low Margins Close, but negative ER Positive MO Positive HER-2 Negative OncotypeDx Recurrence Score 17 Chemotherapy Not recommended Radiation Therapy Completed 10/19/2020 Adjuvant Endocrine Therapy Anastrozole started 11/02/2020 Genetic Testing 12/14/20 - no mutations Surveillance Annual mammogram and CBE Comprehensive Breast Program Surgery Follow Up: Range of motion of surgical arm complete Lymphedema present Yes - mild left breast edema. Performs self massage Cosmesis-surgeon reported Cosmesis-patient reported Excellent Excellent Local or regional recurrence No Contralateral cancer present No Distant recurrence present No Date of last follow up 02/24/2021 Breast Cancer Risk Factors: History Age at delivery of first child 25 yo Breast fed No Menarche age 11 yo LMP / Menopause Early 50s Hormonal contraceptive use Yes as a young adult Hormone replacement therapy No Family history of breast cancer Sister, paternal aunt Family history of ovarian cancer PGM Known genetic mutation 12/14/20 - [facility]'s Multi Cancer Panel showed no mutations detected Ashkenazi Quaker heritage No Family History Problem (# of Occurrences) Relation (Name,Age of Onset) Bladder Cancer (1) Father (74) Breast Cancer (2) Sister, Paternal Aunt (55) Lung Cancer (1) Paternal Uncle Ovarian Cancer (1) Paternal Grandmother: at 49 Social Hx: Martha works for the [employer]. She goes to [employer] classes 3 days/wk. She has never smoked; ETOH - ~ 2 glasses of wine/wk. Past Medical Hx: SALOMON, hypothyroidism Past Surgical Hx: Appendectomy, cholecystectomy Physical Exam: General appearance: Alert, well-appearing, well-developed; in no acute distress. Skin: Warm and dry. Head: Normocephalic, atraumatic. Neck: Soft and supple without cervical adenopathy. Cardiovascular: Normal rate, regular rhythm and normal heart sounds. No murmur heard. Pulmonary: Effort normal and breath sounds normal. No signs of respiratory distress, cough, or wheezing. Breasts: The breasts are examined in the upright and supine position. The breasts are symmetrical with the exception of a well-healed periareolar scar in the left breast. Mild medial left breast edema.Breast tissue is firmer on the left than the right. The scar is soft and nontender, without mass. Novenous prominence, skin thickening, or nipple discharge. The right breast is normal appearing. No suspicious masses, tenderness, dimpling, erythema, or other skin changes in either breast. No palpable axillary lymph nodes bilaterally. The nipples are everted. I feel no obvious discrete or dominant masses in either breast. Musculoskeletal: Arms with full ROM without any evidence of lymphedema. Fully weight-bearing. Neurological: Alert and oriented x 4. Mood is euthymic and appropriate to the situation. Results: Imaging performed (bilateral mammogram) at [facility] today shows no evidence of malignancy, BIRADS Category 2 with scattered areas of fibroglandular breast tissue. The results were pending at the time of today's appointment. I will notify her of results via myD-H when available. Assessment: Clinical breast exam without notable masses, skin changes, dimpling, or nipple discharge. Doing well without evidence of local recurrence. Stable exam. Plan: 1. Encounter for follow-up surveillance of breast cancer 2. Malignant neoplasm of central portion of left breast in female, estrogen receptor positive 3. Lymphedema of breast 4. Family history of breast cancer in first degree relative 5. Breast cancer screening by mammogram - Mammo Screening Cad and Nabeel Bilateral; February 2023 I have discussed my assessment and recommendations with Martha to include occasional self-breast exams and annual mammographic screening with clinical breast exams. Based on her risk factors, her next bilateral screening mammogram is due in one year, or sooner if indicated. I will plan to see her for aclinical breast exam at that time. She will also contact me if she develops any new breast changes or concerns prior to that appointment. She agrees to this plan. Routine recommendations discussed with the patient including importance of regular moderate intensity exercise, nutrition, decreasing cardiovascular risk, and optimizing weight. Nonpharmacologic measures to help decrease your risk of developing breast cancer include the following: ?? Get at least 30 minutes of moderate intensity physical activity above normal activity on most days of the week to reduce the risk of chronic disease in adulthood. Walking is a good choice. You also may want to do other activities, such as running, swimming, cycling, playing tennis, or other team sports. ?? Do strength training exercises at least twice a week to maintain muscle and bone health. ?? Drink alcohol in moderation, if at all. That means no more than 1 drink a day for women or 2 per day for men. ?? Make healthy eating choices: fruits and vegetables, lean protein, and healthy fats. Minimize processed foods, simple carbohydrates, sugars, and artificial sweeteners. ?? Maintain or achieve a healthy weight. Normal BMI < 25 for individuals under 65 years old; 22-30 for > 65 years old. ?? Manage stress levels. ?? Be cautious about exposure risk, both what you put in and on your body (ie: artificial fragrances, artificial dyes, as well as certain ingredients in makeup, hair and body care, antiperspirant, sunscreen, insect repellant, laundry detergent, fabric softener, dryer sheets, etc.). Resources to help you make informed choices for personal care products are available at EWG (Environmental Working Group) at https://www.ewg.org and free apps for your cell phone from [employer] ([employer]y [employer]) and [employer] ([employer]). All questions were answered to the patient's satisfaction and they state understanding and agreementwith today's treatment plan. They are encouraged to follow up sooner if they develop any new or concerning symptoms. Krysta Kessler APRN Surgical Oncology P [phone] F [phone] [facility] documented in this encounter Plan of Treatment Scheduled Orders Name Type Priority Associated Diagnoses Order S chedule Mammo Screening Cad and Imaging Routine Lymphede ma of breast Expected: 02/28/2023, Nabeel Bilateral Family history of breast E xpires: 08/30/2023 cancer in first degree relative Breast cancer screening by mammogram Malignant neoplasm of central portion of left breast in female, estrogen receptor positive documented as of this encounter Visit Diagnoses Diagnosis Encounter for follow-up surveillance of breast cancer Unspecified follow-up examination Malignant neoplasm of central portion of left breast in female, estrogen receptor positive Lymphedema of breast Other lymphedema Family history of breast cancer in first degree relative Family history of malignant neoplasm of breast Breast cancer screening by mammogram documented in this encounter Care Teams Tractor Drill Operator Relationship Specialty Start Date End Date Madina Oshea APRN PCP - General Internal Medicine 07/09/[address] [place] [address] documented as of this encounter
--- OUTSIDE RECORDS SUMMARY | 2022-07-27 10:13 | XMS_ITS | Encounter Summary ---
:1965 Author Organization [place] [address] Care Team Providers Name Role Phone Dayo, Madina Liz BELLAMY Primary Care Provider Encounter Details Date Type Department Care Team Description 02/24/2021 Orders Only General Surgery at Barbie Duenas ry of breast [facility] [place] Amanda cancer (Primary Dx) [facility] [address] GENERAL SURGERY [phone] [place], [place] [address] Social History Tobacco Use Types [...] filedocumented as of this encounter Results Mammo Screening Cad and [...] images. COMPARISON: The study is compared with p rior images. FINDINGS: Breast density: There are scattered [...] with their provider to determine their preferred east cancer screening schedule. * ??Women should report [...] who have questions please contact the health child care supervisor that requested your imaging first. ? Barbie Duenas MD IMG MAMMO ORDERABLES documented in this encounter Visit Diagnoses Diagnosis History of breast cancer - Primary Personal history of malignant neoplasm o f breast History of breast cancer Personal history of malignant neoplasm o f breast documented in this encounter Care Teams Print Shop Stenographer Relationship Specialty Start Date End Date Madina Oshea, EXCHANGE FLOOR MANAGER PCP - General Internal Medicine 07/09/[address] [place] [address] documented as of this encounter
--- OUTSIDE RECORDS SUMMARY | 2022-07-27 10:13 | XMS_ITS | Encounter Summary ---
:1965 Author Organization [facility] [place] [address] Care Team Providers Name Role Phone Madina Oshea APRN Primary Care Provider Reason for Visit Reason Comments Follow-up Encounter Details Date Type Department Care Team Description 02/28/2022 Office Visit Hematology and Arjun Saleh, Jame t neoplasm of overlapping sites of left breast in female, estrogen receptor positive; [place] [facility] [place]ignant neoplasm of central portion of left breast in female, estrogen receptor positive [facility] [address] [place] HEMATOLOGY/ONCOLOG [address] Y DEPT. [phone] [place], [place] [address] Social History Tobacco Use Types [...] Mass Index 35.18 02/28/2022 12:49 PM EDT documented in this encounter Progress Notes Arjun Saleh MD - 02/28/2022 1:00 PM EDT Subjective: Patient ID: Martha Hansen is a 56 y.o. female with Stage II breast cancer, [...] hypoechoic area with architectural distortion at 12:00, 4.5cm from the left nipple. An ultrasound-guided biopsy [...] at 12:00, 4-8 cm from the left nipple.There were no morphologic abnormalities or areas of [...] Two sentinel nodes were negative. Oncotype testing sh owed a Recurrence Score of 17 and I recommended against adjuvant chemotherapy. She received radiotherapy to the left breast from September 20 through October 19, 2020, 42.56 Gy in 16 fractions to the breast with a 10 Gy boost in four fractions to the tumor bed. Martha tested negative for a deleterious mutation on the [employer] Multi-Cancer Panel on December 14, 2020. She reports that her sister was diagnosed with breast cancer since our last visit. Interval History: Martha started anastrozole on November 02, 2020. She has done well with it so far. She has night timehot flashes which awaken her at night, with lesser hot flashes during the day. She does not wish to take anything for the hot flashes. The vaginal dryness has resolved. She has pain in her left heel, she saw a physical therapist who thought she may have had a heel spur, and she has stiffness in the fingers of both hands. Her fingers are numb at night. She denies any other sites of joint or skeletal pain. She walks for two hours a week and she lifts weights, and she lost ten pounds over the past six months. She takes Vitamin D at 2000 units daily. Review of Systems She denies breast pain or a palpable breast mass, a cough, shortness of breath, chest pain, nausea, vomiting, diarrhea, constipation, headaches, double vision, skin rashes, or pain, redness, or swelling in her lower extremities. The remainder of her review of systems is negative. Objective: Physical Exam Vitals reviewed. Constitutional: Comments: Her weight is down 4.5 kg over the past six months, and her BP is 131/69. HENT: Mouth/Throat: Mouth: Mucous membranes are moist. [...] There is no guarding. Comments: No hepatomegaly or right upper quadrant pain. Musculoskeletal: Comments: She has no pain on percussion over the spine, sternum, ribs, or hips. No peripheral edema, erythema, or warmth Labs from July 15, 2020 included a WBC count of 7.1, Hgb 14.2, Hct 42.3, platelets 273, ANC 3580, Na 140, K 3.5, Cl 103, bicarb 26, BUN 15, creatinine 0.76, Ca 10.4. Recent Results (from the past 24 hour(s)) Hepatic Function Panel Result Value Ref Range Total Protein 7.5 6.1 - 8.0 g/dL Albumin 4.6 3.2 - 5.2 g/dL AST 23 0 - 30 unit/L ALT 32 (H) 0 - 30 unit/L Total Bilirubin 0.3 0.2 - 1.3 mg/dL Bili, Direct 0.1 0.0 - 0.3 mg/dL A Vitamin D level is pending. Today's screening mammograms show no suspicious microcalcifications, masses, or architectural distortion, with post-treatment changes on the left. The breasts are of scattered density. The baseline Dexa scan from February 24, 2021 showed T scores of -1.2 at the spine, 0.1 at the femoral neck, and 0.9 at the hip. Assessment and Plan: Ms. Hansen is a 56 year old woman with a 1.5 cm low grade invasive lobular carcinoma, node negative, estrogen and progesterone receptor strongly positive, and Her-2 negative, with a Recurrence Score of 17. She has no evidence of breast cancer recurrence, and she is tolerating anastrozole well, with moderate vasomotor symptoms and minimal arthralgias attributable to the anastrozole. Her elevated transaminases have nearly resolved with her recent ten pound weight loss. I will contact her through [facility] if her Vitamin D level is under 40 ng/mL so I can ask her to increase her dosing of her supplemental Vitamin D. I will see her next in six months, and I will repeat her HFP at that time. She knows to contact us in the interim if she has any concerns and if she needs help in managing her vasomotor symptoms. Arjun Saleh MD gi tech in Hematology-Oncology documented in this encounter Plan of Treatment Scheduled Orders Name Type Priority Associated Diagnoses Order S chedule Hepatic Function Panel Lab STAT Malignant neoplasm of Expected: 08/30/2022, overlapping sites of left Ex shanta: 02/28/2023 breast in female, estrogen receptor positive documented as of this encounter Visit Diagnoses Diagnosis Malignant neoplasm of overlapping sites of left breast in female, estrogen receptor positive Malignant neoplasm of central portion of left breast in female, estrogen receptor positive documented in this encounter Care Teams Boarder Machine Relationship Specialty Start Date End Date Madina Oshea APRN PCP - General Internal Medicine 07/09/[address] [place] [address] documented as of this encounter
--- OUTSIDE RECORDS SUMMARY | 2022-07-27 10:13 | XMS_ITS | Encounter Summary ---
:1965 Author Organization [facility] [place] [address] Care Team Providers Name Role Phone Madina Oshea APRN Primary Care Provider Reason for Visit Reason Comments On Treatment Visit Encounter Details Date Type Department Care Team Description 09/21/2020 Office Visit Radiation Oncology at [facility], Eva Bailye MD Hormone receptor [facility] positive malignant [address] neoplasm of left [place], [place] RADIATION ONCOL OGY breast [address] [place] [address] [phone] Social History Tobacco Use Types Packs/Day Years [...] Sign Reading Time Taken Comments Blood Pressure 138/89 09/21/2020 8:53 AM EST Pulse 72 09/21/2020 8:53 AM EST Temperature 36.5 ??C (97.7 ??F) 09/21/2020 8:53 AM EST Respiratory Rate 16 09/21/2020 8:53 AM EST Oxygen Saturation 100% 09/21/2020 8:53 AM EST Inhaled Oxygen Concentration - - Weight 110.3 kg (243 lb 3.2 oz) 09/21/2020 8:53 AM with shoes EST Height - - Body Mass Index 37.51 08/19/2020 11:06 AM EDT documented in this encounter Progress Notes Janay Burt MD - 09/21/2020 8:30 AM EST Images from the original note were not included. DIAGNOSIS: Breast ca, L, ILC, gr 1, ER+PA+, Her2 neg, s/p lumpectomy & SNB, pT1c pN0. CURRENT TREATMENT DOSE: 5.32 Gy L breast ANTICIPATED TOTAL DOSE: 42.56 Gy L breast, 52.56 Gy lumpectomy bed Current # of xrt received: 2 L breast Anticipated total # of xrt txs: 16 L breast, 20 lumpectomy bed Evaluation of port verification films: Approved. For details, see electronic film record in [employer]. Changes in Medical Condition: Mild tenderness in L breast since surgery, not worsening.. Pain?: No Your Medications Accurate as of September 21, 2020 10:36 AM. If you have any questions, ask [...] 1 drop Refills: 0 Physical Exam: BP 138/89 (Patient Position: Sitting) Pulse 72 Temp 36.5 ??C (97.7 ??F) (Temporal) Resp 16 Wt 110.3 kg (243 lb 3.2 oz) Comment: with shoes SpO2 100% BMI 37.51 kg/m?? A&Ox3, NAD. L breast w/o erythema. Amb stable. Imagin09/07/20 Dx'ic Rad Interp CTsim: 1. CT obtained for radiation therapy planning purposes. 2. 6.2 cm fluid collection in the left breast, likely related to postoperative seroma. Superimposed infection would be impossible to exclude. 3. Hepatic steatosis. 4. Mild to moderate left anterior descending coronary atherosclerosis, slightly out of proportion for patient age. Borderline cardiomegaly. Correlation with echocardiography may be of benefit. Performance Status: KPS 100% Response to xrt: As expected. Irradiation Related Symptoms: None. Treatment for Symptom Control: Abraham's cream. Pain Management: Not needed. Recommendation on Continuing Course of xrt: Cont. CTsim findings discussed w/her; will notify PCP ofcoronary atherosclerosis, borderline cardiomegaly for which correlation w/echo suggested, hepatic steatosis. Cc: Makayla Oshea APRN documented in this encounter Plan of Treatment Not on filedocumented as of this encounter Visit Diagnoses Diagnosis Hormone receptor positive malignant neop lasm of left breast documented in this encounter Care Teams Master In Chancery Relationship Specialty Start Date End Date Madina Oshea APRN PCP - General Internal Medicine 07/09/[id number] [place] [address] documented as of this encounter
--- OUTSIDE RECORDS SUMMARY | 2022-07-27 10:13 | XMS_ITS | Encounter Summary ---
:1965 Author Organization [facility] [place] [address] Care Team Providers Name Role Phone Madina Oshea APRN Primary Care Provider Encounter Details Date Type Department Care Team Description 08/25/2020 External Results Medical Records Provider, [place] [address] Social History Tobacco Use Types Packs/Day [...] Name Priority Date/Time Associated Diagnosis Comme nts SURGICAL PATHOLOGY Routine 08/25/2020 Results f or this SCAN procedure are i n the results section . documented in this encounter Results Scan Doc: Surgical Pathology (08/25/2020) Narrative This result has an attachment that is no t available. Historical Provider MD ODONNELL MGR SCAN EXT ORDR/RSLT documented in this encounter Visit Diagnoses Not on filedocumented in this encounter Care Teams Dyehouse Worker Relationship Specialty Start Date End Date Madina Oshea APRN PCP - General Internal Medicine 07/09/20 [address] [place] [address] documented as of this encounter
--- OUTSIDE RECORDS SUMMARY | 2022-07-27 10:13 | XMS_ITS | Encounter Summary ---
:1965 Author Organization [facility] [place] [address] Care Team Providers Name Role Phone Madina Oshea APRN Primary Care Provider Reason for Visit Physical Therapy (Routine) - Closed Specialty Diagnoses / Procedures Referred By Contact Refer red To Contact Physical Therapy Diagnoses S/P radiotherapy Janay Burt MD [facility] Pt Rehab [facility] RADIATION ONCOLOGY [address] [address] Phone: Fax: Referral ID Status Reason Start Date Expiration Date Visits V isits Requested Authorized [id number] Closed Evaluate and 05/30/2021 05/30/2022 60 60 Treat Encounter Details Date Type Department Care Team Description 08/23/2021 Office Visit Physical Therapy at Eva Milan, PT Decreased ROM of left shoulder; [facility] Swelling; [facility] Pain of left breast [facility] PHYSICAL MEDICINE & [place], [place] [facility] [address] [place] [address] Social History Tobacco Use Types Packs/Day Years [...] documented as of this encounter Miscellaneous Notes Treatment - Therapy - Ny Milan, PT - 08/23/2021 9:00 AM EDT Images from the original note were not included. PHYSICAL THERAPY progress note Date of Exam/First treatment: 07/08/21 Date of Onset : ~ 10/19/20 Referring Provider: Janay Burt MD Primary Insurance: Payor: [employer] [place] / Plan: [place] V[place] / Product Type: *No Product type* / Diagnosis and pertinent co-morbidities: secondary lymphedema left breast, pain left breast and decreased rom total treatment time: 45 minutes total timed code treatment: 45 minutes manual therapy CURRENT HISTORY: Martha Hansen is a 55 y.o. female s/p lumpectomy for ILC, gr 1, ER+GA+, Her2 neg, * 0/2 nodes positive 07/23/20. No complications. S/p xrt (10/19/20) . Referred to PT for ??Tighness UOQ L breast & lymphedema LIQ L bresat. Patient Active Problem List Diagnosis Date Noted ??? Malignant neoplasm of overlapping sites of left breast in female, estrogen receptor positive 07/05/2020 Adjuvant Treatment pending: Radiation Social: with 2 sons and a daughter. Pt. lives in [place], [place] Work: works for [employer] Function/exercise history: Walking distance/frequency: aerobic -3x/week (walk or run on treadmill) Other exercise: boot camp (weights, jumping jacks, kettle bells)-3x/day Hobbies:none Pain: Discomfort 5/10 FUNCTIONAL LIMITATIONS: On a difficulty scale with 0 being unable to perform an activity, and 10 being able to perform at a pre injury level she rates 9/10. S:4/10 pain in axilla intermittient , no arm pain or breast pain O: Active Range of motion: supine Right 07/08/21 Left 07/08/21 Left 08/23/21 Sh flexion 170 165* 165* Sh abduction 170 165* 165* Sh ER 90 90* 90* Sh IR T7 T7 Strength: n/t Palpation/inspection: lymphedema left breast, no fibrosis, tissue seems to be softening Flexibility: decreased at: pectoralis Notes: MLD left breast using right axilla and left inguinal nodes. MFR left pecs, subscap and latisismuss Previously: Pt education MLD left breast using right axilla and left inguinal nodes. MFR left pecs Instruction in stretching left pecs and MFR using Dycem-snow angels and Torso Twist Discussed [employer] sports bra. I also recommended a post lumpectomy pad. The patient's rehabilitation potential is good. GOALS: Therapy Short Term Goals: 4 weeks 1. Increase ROM left shoulder 2. Ind and consistent with HEP 3. Decrease swelling, decrease pain left breast Therapy Talent Agent Goals: 6 weeks 1. Full functional use [...] Mastodynia documented in this encounter Care Teams Ruling Machine Set Up Operator Relationship Specialty Start Date End Date Madina Oshea APRN PCP - General Internal Medicine 07/09/[id number] [place] [address] documented as of this encounter
--- OUTSIDE RECORDS SUMMARY | 2022-07-27 10:13 | XMS_ITS | Encounter Summary ---
:1965 [place] [address] Care Team Providers Name Role Phone Madina Oshea Liz BELLAMY Primary Care Provider Reason for [...] Expiration Date Visits Requ ested Visits Authorized [id number] 1 1 Encounter Details Date Type Department Care Team Description 07/23/2020 Anesthesia Event Outpatient Surgery Mariel Montilla MD [facility] [place] [address] [place] Melvi Serrato MD [facility] [place] [address] [facility] [place] [address] Anesthesia Record Procedure Summary Procedure Name Responsible Anesthesia Start Anesthesia Stop Anesthesiologist Time Time MASTECTOMY PARTIAL Maryana Montilla MD 07/23/20 1408 1548 (WRVU 10.13) (Left Breast) Events Date Time Event Comment 07/23/2020 1333 1408 AN Verify 1408 Start 1408 An Start Data 1421 An Induction 1421 An Intubation 1421 Anesthesia Ready 1426 Break/Relief In I assumed care f or Break Relief before which we: 1. Identifie d the patient 2. Identified the responsible provider(s) 3. Reviewed the pertinent medica l history 4. Discussed the surgical plan an d course 5. Reviewed intra-op anesthesia manag ement and issues during anesthesia 6. Se t expectations for the relief (and/or post-pro cedure) period 7. Allowed opportunity for questions and acknowledgement of understanding Ebony Echols CRNA 1435 Break/Relief Out 1539 Extubation/LMA Out 1543 an stop data 1546 Recovery or ICU Handoff Patient care was transferred to the destination unit staff after review of the patient's medica l history, current anesthetic/surgi esteban status and plan, according to the Provider Handoff Checklist. 1548 Stop Name Total Midazolam 2 mg fentaNYL 100 mcg IV Lidocaine 60 mg Propofol 200 mg Ondansetron 4 mg Dexamethasone 4 mg Propofol INF 370.83 mg ceFAZolin (Ancef) 2 g in dextrose 5% 100 mL infusion 2 g Ketorolac 15 mg Dexmedetomidine 12 mcg lactated ringers infusion 900 mL Agents Name O2 Air N2O Sevoflurane (et) Blood No blood administrations on file. Lines, Drains, and Airways Type Details Placement Removal Incision 07/23/20; breast; 07/03/22 07/23/20 0000 by 06/06 07/27 1715 by (LDA cleanup utility Smiley Avila, Magy Garcia RA#[id number]); 1715 (LDA cleanup utility RA#[id number]) Incision 07/23/20; axilla; 07/03/22 07/23/20 0000 by 06/06 07/27 1715 by (LDA cleanup utility Smiley Avila, Magy Garcia RA#[id number]); 1715 (LDA cleanup utility RA#[id number]) PIV 07/23/20; 1315; metacarpal 07/23/20 1315 by Butl er, 07/23/20 1629 by vein (top of hand), right; FABIAN Betancourt Genice F, RN [id number] catheter system; 22 gauge; Serena Rojas email marketer; intradermal injection, distraction; 1; median vein (underside of arm), right; no longer indicated, catheter/device intact; 07/23/20; 1629 Supraglottic Mask Ventilation: Easy 07/23/20 1426 by 07/23/20 1539 by (1); LMA Type: iGel; LMA Ebony Echols, Ebony Kessler, Size: 4; Inserted by: PARVEZ Echols CRNA documented in this encounter Social History Tobacco Use Types Packs/Day Years [...] on file documented as of this encounter OR Notes Anesthesia Postprocedure Evaluation - Maryana Montilla MD - 07/23/2020 4:02 PM EDT Department of Anesthesiology Post-procedure Note Patient: Martha Hansen Procedure Summary Date: 07/23/20 [place] / Location: [facility] [place] [address] [place] [address] Anesthesia Start: 1408 Anesthesia Stop: 1548 Procedures: MASTECTOMY PARTIAL (WRVU 10.13) (Left Breast) BIOPSY OR EXCISION OF LYMPH NODE(S), OPEN, DEEP AXILLARY NODE(S) (WRVU 6.43) (Left Axilla) INTRAOPERATIVE ID (MAPPING) SENTINEL LYMPH NODE,INCLUDES INJECTION (WRVU 2.5) (Left ) MODIFIER WITH NEEDLE LOC., LESION #1 (Left ) MODIFIER SENTINEL NODE EXCISION (Left ) Diagnosis: (BREAST CANCER) Surgeon: Barbie Duenas MD Responsible Provider: Maryana Montilla MD Anesthesia Type: general ASA Status: 2 All Anesthesia Providers: Anesthesiologist: Deni Stevenson MD; Maryana Montilla MD; Melvi Mehta MD PRODUCTION MECHANIC: Onesimo, Ebony L, PRODUCTION MECHANIC Vitals Value Taken Time BP 159/73 07/23/20 1546 Temp 36.4 ??C (97.5 ??F) 07/23/20 1546 Pulse 61 07/23/20 1546 Resp 12 07/23/20 1546 SpO2 99 % 07/23/20 1546 Pain Level Patient Location: PACU/[facility] Level of Consciousness: Awake and Alert Pain Management: Satisfactory Analgesia PONV: None Cardiovascular Status: At Baseline and Hemodynamically Stable Respiratory Status: At Baseline and Room Air Postoperative Fluid Status: Intravascular EUvolemia Possible Anesthetic Complications: NONE apparent at time of evaluation Final Primary Anesthesia Type: General (The anesthetic type performed was the same as planned.) Comments: MARYANA MONTILLA MD Anesthesia Preprocedure Evaluation - Melvi Mehta MD - 07/22/2020 3:48 PM EDT Pre-Anesthesia Evaluation for: Martha Hansen a 54 y.o. female. Procedure(s): MASTECTOMY PARTIAL (WRVU 10.13) BIOPSY OR EXCISION OF LYMPH NODE(S), OPEN, DEEP AXILLARY NODE(S) (WRVU 6.43) INTRAOPERATIVE ID (MAPPING) SENTINEL LYMPH NODE,INCLUDES INJECTION (WRVU 2.5) MODIFIER WITH NEEDLE LOC., LESION #1 MODIFIER SENTINEL NODE EXCISION Patient Active Problem List Diagnosis ??? Malignant neoplasm of left breast in female, estrogen receptor positive Dx: 07/05/20 [facility] [place] No past medical history on file. Past Surgical History: Procedure Laterality Date ??? MAMMO US BIOPSY LEFT Left 07/05/2020 Mammo Us Biopsy Left 07/05/2020 Ashok Simpson MD [facility] RAD MAMMOGRAPHY Social History Tobacco Use ??? Smoking status: Never Smoker ??? Smokeless tobacco: Never Used Substance Use Topics ??? Alcohol use: Not on file Social History Substance and Sexual Activity Drug Use Not on file No Known Allergies Medications: MAR and/or home medications have been reviewed. Physical Exam: No data found. There is no height or weight on file to calculate BMI. Airway Assessment: Mallampati: II TM distance: >3 FB Cardiovascular Assessment: Rhythm: regular Pulmonary Assessment: Dental Assessment: Misc Assessment: IV access: Peripheral line Anesthesia Plan: ASA 2 general, with a(n) intravenous induction 54 y/o here for mastectomy partial LEFT breast, excision of nodes, napping PMH: hypothyroid, obesity No URIs, NPO, no SOB or CP, rare GERD, no EtOH, no smoking PSH: knee arthroscopy, colonoscopy, irving, no problems Plan : tylenol, General LMA The patient was informed of the risks of anesthesia, and consent was obtained. The risks of anesthesia include, but are not limited to, PONV, pain, sore throat, and other rare but serious complicationssuch as major organ damage, allergies, blood transfusions, intraoperative awareness, and dental/lip trauma. Region - Other Informed Consent: Anesthetic plan and risks discussed with patient. Plan discussed with PRODUCTION MECHANIC. PAT Clinic Note documented in this encounter Plan of Treatment Not on filedocumented as of this encounter Visit Diagnoses Not on filedocumented in this encounter Administered Medications Inactive Administered Medications - up to 3 most recent administrations Medication Order MAR Action Action Date Dose Rate Site ceFAZolin (Ancef) 2 g in dextrose 5% Given 07/23/2020 2:22 PM ED T 2 g 100 mL infusion 2 g, Intravenous, EVERY 3 HOURS, 1 dose, First dose on Sun07/23/20 at 1315, Administer over 30 Minutes, Intra-Operative (Intra-Procedure), Indication for (Active or Suspected): Prophylaxis dexamethasone (Decadron) injection Given 07/23/2020 2:28 PM EDT 4 mg PRN, Starting on Sun07/23/20 at 1428, Until Sun07/23/20 at 1551, Anesthesia Intra-op, Routine dexmedetomidine (PRECEDEX) injection Given 07/23/2020 2:21 PM EDT 12 mcg PRN, Starting on Sun07/23/20 at 1421, Until Sun07/23/20 at 1551, Anesthesia Intra-op, Routine fentaNYL 50 mcg/mL multi-dose injection Given 07/23/2020 3:17 PM EDT 25 mcg PRN, Starting on Sun07/23/20 at 1428, Until Sun07/23/20 at 1551, Anesthesia Intra-op, Routine Given 07/23/2020 2:54 PM EDT 25 mcg Given 07/23/2020 2:45 PM EDT 25 mcg ketorolac (TORADOL) injection Given 07/23/2020 2:28 PM EDT 15 mg PRN, Starting on Sun07/23/20 at 1428, Until Sun07/23/20 at 1551, Anesthesia Intra-op, Routine lidocaine (PF) (XYLOCAINE) 100 mg/5 mL (2 %) Given 0 2:18 PM EDT 60 mg injection PRN, Starting on Sun07/23/20 at 1418, Until Sun07/23/20 at 1551, Anesthesia Intra-op, Routine midazolam (PF) (VERSED) multi-dose injec tion Given 07/23/2020 2:11 PM EDT 2 mg PRN, Starting on Sun07/23/20 at 1411, Until Sun07/23/20 at 1551, Anesthesia Intra-op, Routine ondansetron (ZOFRAN) injection Given 07/23/2020 2:29 PM EDT 4 mg PRN, Starting on Sun07/23/20 at 1429, Until Sun07/23/20 at 1551, Anesthesia Intra-op, Routine propofoL (Diprivan) 10 mg/mL bolus injection Given 2:21 PM EDT 200 mg (Anesthesia) PRN, Starting on Sun07/23/20 at 1421, Until Sun07/23/20 at 1551, Anesthesia Intra-op propofoL (Diprivan) Rate/Dose 07/23/2020 2:50 50 mcg/kg/min 31.6 mL/ hr infusion Change PM EDT CONTINUOUS PRN, Starting on Sun07/23/20 at 1421, Until Sun07/23/20 at 1551, Anesthesia Intra-op, Routine New Bag 07/23/2020 2:21 PM EDT 75 mcg/kg/min 47.3 mL/hr documented in this encounter Care Teams Derrick Boat Lever Operator Relationship Specialty Start Date End Date Madina Oshea, HOT WALKER PCP - General Internal Medicine 07/09/20 [facility] [facility] [place] [address] documented as of this encounter
--- OUTSIDE RECORDS SUMMARY | 2022-07-27 10:13 | XMS_ITS | Encounter Summary ---
:1965 Author Organization [facility] [place] [address] Care Team Providers Name Role Phone Dayo Madinakuldip Hill APRN Primary Care Provider Reason for Visit Reason Comments Follow-up Encounter Details Date Type Department Care Team Description 08/19/2020 Office Visit General Surgery at JeronimoBarbie march neoplasm of [facility] MD Amanda upper-outer quadrant [facility] of left breast in Drive DR crouch, estrogen [place], [place] GENERAL SURGERY receptor positive [id number] [place] [address] [phone] Social History Tobacco Use Types Packs/Day Years [...] Sign Reading Time Taken Comments Blood Pressure - - Pulse - - Temperature - - Respiratory Rate - - Oxygen Saturation - - Inhaled Oxygen Concentration - - Weight 109.3 kg (241 lb) 08/19/2020 11:06 AM EDT Height 171.5 cm (5' 7.52) 08/19/2020 11:06 AM EDT Body Mass Index 37.17 08/19/2020 11:06 AM EDT documented in this encounter Progress Notes Barbie Duenas MD - 08/19/2020 10:45 AM EDT HPI?? Martha is a 54 yo female who presents today following partial mastectomy and sentinel node excision for newly diagnosed left breast cancer. Martha presented for screening mammography. This prompted call back views which confirmed: There is a highly suspicious 1.2 cm area of architectural distortion in the left upper central breast middle third 12:00 radian 4.5 cm from the nipple. The right breast is unremarkable. ?? Biopsy revealed a low grade IDC which is strongly Er/MS+ and her2-. ?? MRI was performed for preoperative planning. There is a 4.0 cm irregular area of nonmass enhancement at the site of the biopsy clip at 12:00 radian. LEFT BREAST LESION 1: ??4.1 cm Non mass enhancement Upper ??12 O'Clock 4 - 8 cm from the nipple by MRI ?? Martha opted for partial mastectomy and sentinel node biopsy. There was a 15 mm low grade (SBR=5) invasive lobular carcinoma, excised with a less than 1 mm anterior margin, with lobular carcinoma in situ, but without ductal carcinoma in situ or lymphovascular invasion. Two sentinel nodes were negative. She has recovered well from surgery. SH: with 2 sons and a daughter. Non smoker. Rare etoh ?? FH:??no breast or ovarian cancer ?? PMH Hypothyroidism On exam, well appearing and in nad. No drainage, erythema or seroma. A/P Martha is a 54 yo female recovering well following partial mastectomy and sentinel node. Plan oncotype dx to confirm no indication for chemotherapy. Pending low risk, plan whole breast xrt followed by endocrine therapy. I will see Martha back in 6 months with new baseline mammogram. She will keep me posted if she has any questions or concerns. ?? documented in this encounter Plan of Treatment Not on filedocumented as of this encounter Visit Diagnoses Diagnosis Malignant neoplasm of upper-outer quadra nt of left breast in female, estrogen receptor positive documented in this encounter Care Teams Game Producer Relationship Specialty Start Date End Date Madina Oshea APRN PCP - General Internal Medicine 07/09/[address] [place] [address] documented as of this encounter
--- OUTSIDE RECORDS SUMMARY | 2022-07-27 10:13 | XMS_ITS | Encounter Summary ---
:1965 Author Organization [facility] [place] [address] Care Team Providers Name Role Phone Ruthann Osheayce Lzi BELLAMY Primary Care Provider Reason for Visit Reason Comments Follow-up Encounter Details Date Type Department Care Team Description 02/24/2021 Office Visit General Surgery at Barbie Duenas ry of breast [facility] [place] Amanda cancer [facility] [address] [place] GENERAL SURGERY [address] [place] [address] [phone] Social History Tobacco Use Types Packs/Day Years [...] documented as of this encounter Progress Notes Barbie Duenas MD - 02/24/2021 10:45 AM EDT HPI?? Martha is a 55 yo female who returns today in follow up of early stage left breast cancer. Martha presented for screening mammography in 2019. This prompted call back views which confirmed: There is a highly suspicious 1.2 cm area of architectural distortion in the left upper central breast middle third 12:00 radian 4.5 cm from the nipple. The right breast is unremarkable. ?? Biopsy revealed a low grade IDC which is strongly Er/[place]+ and her2-. ?? MRI was performed for [...] invasion. Two sentinel nodes were negative. She was treated with whole breast xrt and is now on AI. Martha has some hot flashes and occasional labile mood. Neither are qol limiting. She has no new medical issues. She denies fevers, chills, sob, abdominal pains, lymphedema, breast masses, nipple discharge, skin changes, bone pains. She has some ti ghtness of the left axilla. SH: with 2 sons and a daughter. Non smoker. Rare etoh ?? FH:??no breast or ovarian cancer ?? PMH Hypothyroidism On exam, well appearing and in nad. There is no cervical, supraclavicular or axillary adenopathy. Symmetry of the breasts is very good with some edema of the left breast. Well healed superior areola incision on the left No masses or skin changes in either breast. rom of the left arm is limited slightly. No abdominal or vertebral tenderness. Imaging today: normal A/P Martha is a 55 yo female recovering with a history of early stage breast cancer. She is doing well without evidence of local or systemic recurrence. Side effects of AI are manageable. She does have breast edema on the left and some tightness in the axill. Plan PT for therapy. F/u with ESTATE TAX EXAMINER and screening mammogram in 1 year. Martha will call me with any concerns in the interim. documented in this encounter Plan of Treatment Not on filedocumented as of this encounter Visit Diagnoses Diagnosis History of breast cancer Personal history of malignant neoplasm o f breast documented in this encounter Care Teams Executive Sales Assistant Relationship Specialty Start Date End Date Madina Oshea APRN PCP - General Internal Medicine 07/09/[address] [place] [place] [address] documented as of this encounter
--- OUTSIDE RECORDS SUMMARY | 2022-07-27 10:13 | XMS_ITS | Encounter Summary ---
:1965 Author Organization [facility] Address [facility] [place] [address] Care Team Providers Name Role Phone DayoRuthannMadinakuldip Hill APRN Primary Care Provider Reason for Visit Reason Comments Follow-up Encounter Details Date Type Department Care Team Description 08/23/2021 Office Visit Hematology and Therese, Arjun Rojsa, Jame t neoplasm of Oncology at [facility] overlapping sites of [facility] le[facility] t breast in female, Drive estrogen receptor [place], [place] HEMATOLOGY/ONCOLOG positive [address] Y DEPT. [phone] [place], [place] [address] Social History Tobacco Use [...] Sign Reading Time Taken Comments Blood Pressure 135/70 08/23/2021 11:33 AM EDT Pulse 70 08/23/2021 11:33 AM EDT Temperature 36.6 ??C (97.9 ??F) 08/23/2021 11:33 AM EDT Respiratory Rate 20 08/23/2021 11:33 AM EDT Oxygen Saturation 97% 08/23/2021 11:33 AM EDT Inhaled Oxygen Concentration - - Weight 110.2 kg (243 lb) 08/23/2021 11:33 AM EDT Height 170.6 cm (5' 7.17) 08/23/2021 11:33 AM EDT Body Mass Index 37.87 08/23/2021 11:33 AM EDT documented in this encounter Progress Notes Arjun Saleh MD - 08/23/2021 11:30 AM EDT Subjective: Patient ID: Martha [...] negative for a deleterious mutation on the leaselockitae Multi-Cancer Panel on December 14, 2020. She reports that her sister was diagnosed with breast cancer since our last visit. Interval History: Martha started anastrozole on November 02, 2020. She has done well with it so far. She has night timehot flashes which awaken her at night, with lesser hot flashes during the day. She has vaginal dryness without dyspareunia. Her hands sometimes get numb at night but she has no weakness of her hands. She has morning stiffness in her hands, but she has no other sites of joint or skeletal pain. She no longer has nausea when she takes her anastrozole. She is trying to exercise vigorously to lose weight,she walks a couple of miles three times weekly and she lifts weights. She takes Vitamin D within a multivitamin. Review of Systems She denies breast pain or a palpable breast mass, a cough, shortness of breath, chest pain, nausea, vomiting, diarrhea, constipation, headaches, double vision, skin rashes, or pain, redness, or swelling in her lower extremities. The remainder of her review of systems is negative. Objective: Physical Exam Vitals reviewed. Constitutional: Comments: Her weight is down 0.4 kg over the past six months, and her BP is 135/70. HENT: Mouth/Throat: Mouth: Mucous membranes are moist. Pharynx: Oropharynx is clear. Neck: Comments: She has no cervical or supraclavicular adenopathy Cardiovascular: Rate and Rhythm: Normal rate and regular rhythm. Pulmonary: Breath sounds: Normal breath sounds. No wheezing or rales. Comments: The skin of the left breast is edematous. There are no masses within the [...] Panel Result Value Ref Range Total Protein 7.6 6.1 - 8.0 g/dL Albumin 4.4 3.2 - 5.2 g/dL AST 41 (H) 0 - 30 unit/L ALT 79 (H) 0 - 30 unit/L Alk Phos 128 (H) 35 - 105 unit/L Total Bilirubin 0.4 0.2 - 1.3 mg/dL Bili, Direct 0.1 0.0 - 0.3 mg/dL A Vitamin D level is pending. The most recent mammograms from February 24, 2021 showed no suspicious microcalcifications, masses, or architectural distortion, with post-surgical changes on the left. The breasts were of scattered density. The baseline Dexa scan [...] and minimal arthralgias attributable to the anastrozole. She has an increase in her LFTs since starting anastrozole, which is likely due to steatohepatitis. I will continue tofollow her LFTs at each visit. I offered her treatment with a bedtime dose of gabapentin for her night time vasomotor symptoms, and she will think about it. I will contact her with her Vitamin D level,and I will ask her to increase her dosing of Vitamin D if her level is under 40 ng/mL. I will see her next in followup in six months, and I will coordinate that visit with her surgical MARKETING AND PUBLIC RELATIONS MANAGER and with her next mammograms. I asked her to contact us in the interim if she has any concerns and particularly ifshe needs help in managing her vasomotor symptoms. Arjun Saleh MD plastic surgeon in Hematology-Oncology documented in this encounter Plan of Treatment Not on filedocumented as of this encounter Results (ABNORMAL) Hepatic Function Panel (02/28/2022 11:28 AM EDT) P athologist Signature Total Protein 7.5 6.1 - 8.0 [facility] g/dL [facility] Albumin 4.6 3.2 - 5.2 [facility] g/dL [facility] AST 23 0 - 30 [facility] unit/L [facility] ALT 32 (H) 0 - 30 [facility] unit/L [facility] Alk Phos 120 (H) 35 - 105 [facility]L [facility] Total 0.3 0.2 - 1.3 [facility] Bilirubin mg/dL [facility] Bili, Direct 0.1 0.0 - 0.3 [facility] mg/dL [facility] Specimen Anatomical Collection Method Collection Time Receive d Time (Source) Location / / Volume Laterality Blood 02/28/2022 11:28 02/28/2022 AM EDT 11:33 AM EDT Resulting Agency Comment Spec In Lab Arjun Saleh MD CHEMISTRY ORDERABLES Performing Organization Address City/State/[place] [address] documented in this encounter Visit Diagnoses Diagnosis Malignant neoplasm of overlapping sites of left breast in female, estrogen receptor positive documented in this encounter Care Teams Unemployment Inspector Relationship Specialty Start Date End Date Madina Oshea APRN PCP - General Internal Medicine 07/09/20 [address] [place] [address] documented as of this encounter
--- OUTSIDE RECORDS SUMMARY | 2022-07-27 10:13 | XMS_ITS | Encounter Summary ---
:1965 Author Organization [facility] [place] [address] Care Team Providers Name Role Phone Madina Oshea APRN Primary Care Provider Reason for Visit Reason Onset Date Comments Results 01/03/2021 Encounter Details Date Type Department Care Team Description 01/03/2021 Telephone Hematology and Oncology at [facility] Results [facility] Felix santiago HEMATOLOGY/[place] [address] DEPT. [phone] [place], [place] [address] (Wo rk) Social History Tobacco [...] this encounter Miscellaneous Notes Telephone Encounter - [facility] - 01/03/2021 11:47 AM EST This test result was discussed with the patient by phone. A copy of the test results have been scanned in the medical record and sent to Martha. A summary of the results is provided below. Please be advised that [place] law requires that all health care workers respect the confidentiality of thisinformation and not pass it along to other health care providers, insurance companies, or individuals without the written permission of the patient. The [facility]amil[facility] welcomes any questions about these matters. Our phone number is: [phone]. On 12/14/2020, Martha underwent genetic testing for a hereditary predisposition to cancers in eight major organ systems including breast, gynecologic, gastrointestinal, endocrine, genitourinary, skin, brain/nervous system, sarcoma and hematologic. Following are the results of this test. Result: [facility]'s Multi-Cancer Panel showed no mutation was detected. This means that Martha does not carry amutation in the genes detectable by this test. The following 84 genes were evaluated for sequence changes and exonic deletions/duplications: AIP, ALK, APC, HENRY, AXIN2, BAP1, BARD1, BLM, BMPR1A, BRCA1, BRCA2, BRIP1, CASR, CDC73, CDH1, CDK4, CDKN1B, CDKN1C, CDKN2A (p14ARF), CDKN2A (b47YTS3D), CEBPA, CHEK2, CTNNA1, DICER1, DIS3L2, EGFR, EPCAM (Deletion/duplication testing only), FH, FLCN, GATA2, GPC3, GREM1 (Promoter region deletion/duplication testing only), HOXB13, HRAS, KIT, MAX, MEN1, MET, MITF, (c.952G>A,P.Orq458Yzy variant only), MLH1, MSH2, MSH3, MSH6, MUTYH, NBN, NF1, NF2, NTHL1, PALB2, PDGFRA, PHOX2B, PMS2, POLD1, POLE, POT1, FYVOC6H, PTCH1, PTEN, RAD50, RAD51C, RAD51D, RB1, RECQL4, RET, RUNX1, SDHA, SDHAF2, SDHB, SDHC, SDHD, SMAD4, SMARCA4, SMARCB1, SMARCE1, STK11, SUFU, TERC, TERT, EPOL199, TP53, TSC1, TSC2, VHL, WRN, and WT1. Interpretation: This test did not identify an underlying genetic cause for the personal history of breast cancer andfamily history of breast and ovarian cancer. Possible explanations for this negative test result include: ?? Martha's cancer and the cancer in her family may be due to non genetic, environmental causes. ?? There could be a mutation in Martha's family that Martha did not inherit. It is possible that Martha's paternal grandmother who had ovarian cancer in her 40's had a mutation that Martha did not inherit.Martha's sister who was recently diagnosed with breast cancer should consider testing. ?? There could be mutations in other cancer genes not included in this test, or in genes yet to be discovered. ?? There is a very small chance that a pathogenic variant/mutation could be missed due to limitations in the testing. Additional genetic testing for Martha is not recommended at this time. Screening Recommendations Based on genetic test results and personal and/or family history, we recommend: Breast cancer screening ?? Clinical breast exams and imaging as recommended by Martha's oncologists. Gynecologic cancer screening ?? Pelvic exams and/or Pap smears as recommended by Martha's svp digital ad sales or primary care provider. Colon cancer screening ?? Periodic colonoscopy screening as recommended by Martha's grain elevator superintendent. Skin cancer screening ?? Dermatologic/skin exams, as recommended by Martha's primary care provider or hatchery worker. documented in this encounter Plan of Treatment Not on filedocumented as of this encounter Visit Diagnoses Not on filedocumented in this encounter Care Teams Hazardous Waste Management Specialist Relationship Specialty Start Date End Date Madina Oshea APRN PCP - General Internal Medicine 07/09/[address] [place] [place] [address] documented as of this encounter
--- OUTSIDE RECORDS SUMMARY | 2022-07-27 10:13 | XMS_ITS | Encounter Summary ---
:1965 Author Organization [facility] [place] [address] Care Team Providers Name Role Phone Madina Oshea APRN Primary Care Provider Encounter Details Date Type Department Care Team Description 08/13/2020 Telephone Hematology and Oncol radha at [facility] [place] [address] Social History Tobacco Use Types Packs/Day [...] this encounter Miscellaneous Notes Telephone Encounter - Sherri Nam - 08/13/2020 3:07 PM EDT Received call from [facility] with approval for Oncotype testing #[id number] 08/13/2020-02/11/2021 Submitted testing request to [facility] Telephone Encounter - Sherri Nam - 08/13/2020 12:00 PM EDT Faxed PA request for Oncotype testing to MD [employer] @ [phone] documented in this encounter Plan of Treatment Not on filedocumented as of this encounter Visit Diagnoses Not on filedocumented in this encounter Care Teams Kennel Manager Dog Track Relationship Specialty Start Date End Date Madina Oshea APRN PCP - General Internal Medicine 07/09/[address] [place] [address] documented as of this encounter
--- OUTSIDE RECORDS SUMMARY | 2022-07-27 10:13 | XMS_ITS | Encounter Summary ---
:1965 Author Organization [facility] [place] [address] Care Team Providers Name Role Phone Dayo Madina Hill APRN Primary Care Provider Encounter Details Date Type Department Care Team Description 02/28/2022 Orders Only Hematology and Therese, Arjun Rojas, Balwinder mcwilliams current use Oncology at [facility] MD of aromatase inhibitor [facility] [place] [address] HEMATOLOGY/ONCOLOG [phone] Y DEPT. [place] [address] Social History Tobacco Use Types [...] as of this encounter Plan of Treatment Scheduled Orders Name Type Priority Associated Diagnoses Order S chedule Vitamin D, 25-Hydroxy Lab Routine nursing home current u se of Expected: 08/30/2022, aromatase inhibitor Expires: 03/01/2023 documented as of this encounter Visit Diagnoses Diagnosis nursing home current use of aromatase inhib itor Use of aromatase inhibitors documented in this encounter Care Teams Facilities Director Relationship Specialty Start Date End Date Madina Oshea, MIA PCP - General Internal Medicine 07/09/[address] [place] [address] documented as of this encounter
--- OUTSIDE RECORDS SUMMARY | 2022-07-27 10:13 | XMS_ITS | Encounter Summary ---
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 Rad Onc Office Procedures Simulation for Radiation Therapy Planning [address] [place] [phone] Fax: Referral ID Status Reason Start Date Expiration Date Visits V isits Requested Authorized [id number] Closed Consult, 08/16/2020 08/16/2021 99 99 Test & Treat Encounter Details Date Type Department Care Team Description 09/07/2020 Ancillary Radiation Oncology Janay Burt, Malign ant neoplasm Appointment at [facility] of central portion [address] [place] [address] MEDICAL of left female [place], [place] CENTER breast, unspecified [address] RADIATION estrogen receptor [phone] [place] [address] Social History Tobacco Use Types Packs/Day Years [...] on file documented as of this encounter Patient Instructions Patient InstructionsHeather Sena RN - 09/07/2020 8:30 AM EST Information for Patients receiving radiation therapy to the Breast Approximately two weeks after your first treatment, you may begin to experience side effects caused by the radiation. These effects may continue throughout the treatment period and not start improving until 1-2 weeks after treatment is completed. Your doctor will tell you which side effects you are most likely to experience, when you will notice them and how long they might last. It is important to follow the appropriate instructions to minimize your discomfort. Skin Care ??? Wash skin in the treatment field with lukewarm water and mild or moisturizing, unscented soap daily. Blot skin dry with a soft towel. ??? Do not apply any ointment, salve, deodorant, perfume, cologne, cosmetic or self-remedy to the treatment area while you are undergoing radiation and for 1-2 weeks following treatment. An all naturaldeodorant with no aluminum can be used if necessary. ??? Moisturizing cream will be provided for you. This may be used in the treatment area once daily beginning on your first treatment day. Do not apply 2 hours before your radiation treatments. As dryness/redness develop you can use this more often. ??? Do not rub or scratch the skin in the treatment field. This includes shaving unless you use an electric razor. If your skin becomes dry or itchy, tell your nurse or doctor. If necessary, your doctor may order a medication specifically for this problem. ??? Do not use hot water bottles, heating lights, electric heating pads, or hot packs to the treatment area. ??? Keep treated areas out of the sun throughout the treatment period. Be careful of sun exposure tothe treatment field for one year following treatment. Please use SPF> 30 to all exposed areas of skin and limit sun exposure. ??? Avoid tight fitting clothes. We would prefer that you wear a cotton t-shirt instead of a bra. Ifyou are unable to go without a bra please wear a soft cotton bra without underwire. ??? Examine your skin in the treatment area daily and watch for changes. If you cannot reach the whole treatment field ask a family member to look at it and apply cream as needed. Be careful to keep the area under your breast clean and dry as this area can get irritated first. ??? You will meet with your nurse and doctor weekly. They will check your skin and help you with anyside effects you are having. Please ask to see the nurse if you have concerns in between these days. ??? During the last weeks of treatment you may notice some peeling of skin and/or a moist reaction. Be sure to let us know if this happens so we can provide you with further skin care instructions.. ??? Continue to stay active, walk daily, eat healthy foods and drink several glasses of water each day. Fatigue You may notice that you feel unusually tired towards the end of treatment. This is not unusual. We recommend that you pace your activities and plan for rest periods to avoid becoming over-tired. Feel free to direct any questions or concerns you may have related to your treatment to your nurse or doctor. [facility] [[email or web address]] Radiation Oncology Our normal business hours are: Sunday - Sunday 8 AM to 5 PM [place], [place], [place] For emergent situations after hours please call for either location and ask for the Radiation Oncologist air route traffic controller. documented in this encounter Progress Notes Heather Sena RN - 09/07/2020 8:30 AM EST Radiation Oncology Simulation Note Martha Hansen is here for radiation planning , undergoing a simulation to the left breast for breastcancer treatment . Usual radiation oncology routines and purpose of on treatment visits were explained. Jeans cream provided and instructions for use reviewed Anticipatory Guidance: Please see AVS. Barriers to Treatment/ Compliance issues identified: None identified. Patient confirms they can have no difficulties lying flat. pre- medication plan made: None necessary. Referrals: INSURANCE CLAIMS ANALYST per routine. Janay Burt MD - 09/07/2020 8:30 AM EST Here for sim. 08/19/20 fu w/Dr. Duenas; rtc 6 mos w/mmg. Dr. Saleh: Chemo not planned; consideration for endocrine tx after xrt completion. Sim: Breast bd immobilization; flat bbs on L breast lumpectomy scar; CT through chest showed heart to approach chest wall & she was then instructed in deep inspiration breath hold (DIBH) & 2nd CT done w/DIBH; 3D xrt planned. She tolerated sim well, w/o problem. Tx Plan: 3D xrt. Start xrt 1-2 wks. FCP 10/18/20. documented in this encounter Plan of Treatment Not on filedocumented as of this encounter Visit Diagnoses Diagnosis Malignant neoplasm of central portion of left female breast, unspecified estrogen receptor status documented in this encounter Care Teams Child Support Agent Relationship Specialty Start Date End Date Madina Oshea APRN PCP - General Internal Medicine 07/09/[address] [place] [address] documented as of this encounter
--- OUTSIDE RECORDS SUMMARY | 2022-07-27 10:13 | XMS_ITS | Encounter Summary ---
:1965 Author Organization [facility] Address [address] [place] [address] Care Team Providers Name Role Phone Ruthann Osheayce Liz BELLAMY Primary Care Provider Reason for Visit Reason Comments Radiation Follow-up Encounter Details Date Type Department Care Team Description 11/22/2020 [facility] positive malignant [address] neoplasm of left [place], [place] RADIATION ONCOL OGY breast [address] [place] [address] [phone] Social History Tobacco Use Types Packs/Day Years [...] Sign Reading Time Taken Comments Blood Pressure 169/94 11/22/2020 3:07 PM EST Pulse 65 11/22/2020 3:07 PM EST Temperature 37 ??C (98.6 ??F) 11/22/2020 3:07 PM EST Respiratory Rate 16 11/22/2020 3:07 PM EST Oxygen Saturation 98% 11/22/2020 3:07 PM EST Inhaled Oxygen Concentration - - Weight 110.8 kg (244 lb 3.2 oz) 11/22/2020 3:07 PM EST Height - - Body Mass Index 38.25 10/12/2020 12:13 PM EST documented in this encounter Patient Instructions Patient InstructionsJanay Burt MD - 11/22/2020 3:00 PM EST Your exam shows that you are healing nicely from radiotherapy & there is no evidence of cancer. You may use a straight/regular razor on your left underarm. You may expose the irradiated area to sun, but it is recommended that you apply sunscreen with an SPF of @ least #45 on the irradiated area prior to exposing it to sun. You may swim in chlorinated water. You may expose irradiated area to hot tub water. I would like to see you for followup in 6 months. Someone will contact you to schedule appointment. documented in this encounter Progress Notes Janay Burt MD - 11/22/2020 3:00 PM EST Images from the original note were not included. CC: Sched'd fu s/p xrt completion. HPI: Martha is a 55 y/o f who completed xrt to L breast 1 mo ago (10/19/20) for breast ca, L, ILC, gr1, ER+HI+, Her2 neg, s/p lumpectomy & SNB, pT1c pN0. She is on anastrozole, started after xrt completion. Subjective: No pain. Skin w/in irrad'd area healing well. No hand/arm swelling. ROM arms around shoulders good. Energy level good. No past medical history on file. Hypothyroidism. No lupus/scleroderma. Past Surgical History: Procedure Laterality Date ??? APPENDECTOMY 02/07/1913 ??? CHOLECYSTECTOMY ??? MAMMO US BIOPSY LEFT Left 07/05/2020 Mammo Us Biopsy Left 07/05/2020 Ashok Simpson MD [facility] RAD MAMMOGRAPHY ??? PRO BX/REMV, LYMPH NODE, DEEP AXILL Left 07/23/2020 BIOPSY OR EXCISION OF LYMPH NODE(S), OPEN, DEEP AXILLARY NODE(S) (WRVU 6.43) performed by Barbie Duenas MD at [facility] OSC ??? PRO INTRAOP SENTINEL LYMPH ID W/DYE INJECTION Left 07/23/2020 INTRAOPERATIVE ID (MAPPING) SENTINEL LYMPH NODE,INCLUDES INJECTION (WRVU 2.5) performed by Barbie Duenas MD at [facility] OSC ??? PRO MASTECTOMY PARTIAL Left 07/23/2020 MASTECTOMY PARTIAL (WRVU 10.13) performed by Barbie Duenas MD at [facility] OSC ??? TUBAL LIGATION Your Medications Accurate as of November 22, 2020 11:59 PM. If you have any questions, ask [...] topically as needed. 1 drop Refills: 0 silver sulfADIAZINE 1 % Crea Commonly known as: SILVADENE Apply topically daily. Can apply as often as needed. Quantity: 50 g Refills: 0 Physical Exam Constitutional: General: She is not in acute distress. Comments: BP (!) 169/94 (Patient Position: Sitting) Pulse 65 Temp 37 ??C (98.6 ??F) (Temporal) Resp 16 Wt 110.8 kg (244 lb 3.2 oz) SpO2 98% BMI 38.25 kg/m?? HENT: Head: Normocephalic. Eyes: General: No scleral icterus. Right eye: No discharge. Left eye: No discharge. Extraocular Movements: Extraocular movements intact. Conjunctiva/sclera: Conjunctivae normal. Neck: Musculoskeletal: Normal range of motion and neck supple. Pulmonary: Effort: Pulmonary effort is normal. No respiratory distress. Breath sounds: No stridor. Chest: Breasts: Right: No inverted nipple, mass, nipple discharge, skin change or tenderness. Left: Skin change (Mild hyperpigmentation, consistent w/expected post xrt change) present. No inverted nipple, mass, nipple discharge or tenderness. Abdominal: General: There is no distension. Palpations: Abdomen is soft. There is no mass. Tenderness: There is no abdominal tenderness. There is no guarding or rebound. Musculoskeletal: Normal range of motion. General: No swelling or tenderness. Right lower leg: No edema. Left [...] content normal. Judgment: Judgment normal. ?? A: Recovering well from xrt. P: Care of irrad'd skin discussed. Rtc [address] Duenas w/mmg . documented in this encounter Plan of Treatment Not on filedocumented as of this encounter Visit Diagnoses Diagnosis Hormone receptor positive malignant neop lasm of left breast documented in this encounter Care Teams Digital Account Executive Relationship Specialty Start Date End Date Madina Oshea APRN PCP - General Internal Medicine 07/09/20 [address] [place] [address] documented as of this encounter
--- OUTSIDE RECORDS SUMMARY | 2022-07-27 10:13 | XMS_ITS | Encounter Summary ---
:1965 Author Organization [facility] [place] [address] Care Team Providers Name Role Phone Madina Oshea APRN Primary Care Provider Reason for Referral Diagnostic Test (Routine) - Closed Specialty Diagnoses / Procedures Referred By Contact Refer red To Contact Radiology Diagnoses detention current use of aromatase inhibitor Arjun Saleh MD [facility] Rad Xray Procedures DXA Central Spine, Hip, and/or Whole Body (Generic) [facility] [address] [place] [address] HEMATOLOGY/[place] [address] [place] [address] Referral ID Status Reason Start Date Expiration Date Visits V isits Requested Authorized [id number] Closed Specialty 08/12/2020 02/10/2022 1 1 Service Requested Reason for Visit Diagnostic Test (Routine) - Closed Specialty Diagnoses / Procedures Referred By Contact Refer red To Contact Radiology Diagnoses detention current use of aromatase inhibitor Arjun Saleh MD [facility] Rad Xray Procedures DXA Central Spine, Hip, and/or Whole Body (Generic) [facility] DR [address] [facility] HEMATOLOGY/[place] [address] [place] [address] Referral ID Status Reason Start Date Expiration Date Visits V isits Requested Authorized [id number] Closed Specialty 08/12/2020 02/10/2022 1 1 Service Requested Encounter Details Date Type Department Care Team Description 02/24/2021 Hospital Encounter XRay at [facility] Arjun Saleh detention current [address] [place] [address] Crystal MD use of aromatase [place], [place] [facility] inhibitor [id number] [place] [phone] HEMATOLOGY/[place] [address] Social History Tobacco Use Types Packs/Day Years [...] Date ibuprofen (Advil;Motrin) Take by mouth every 0 600 mg Tablet 6 hours as needed. emollient base (CREAM Apply topically. 0 BASE TOP) Jeans Cream. Apply to area of radiation twice a day but no less than 2 hours before a treatment. nystatin (MYCOSTATIN) Apply 1 drop 0 06/22/2020 Cream topically as needed. levothyroxine (Synthroid) Take 300 mcg by 0 100 mcg Tablet mouth daily. anastrozole (Arimidex) 1 Take 1 tablet by 90 tablet 3 11/0210/31/2021 mg TabletIndications: mouth daily. Start Malignant neoplasm of on November 02, overlapping sites of left 2019. breast in female, estrogen receptor positive documented as of this encounter Plan of Treatment Not on filedocumented as of this encounter Procedures Procedure Name Priority Date/Time Associated Diagnosis Comme nts DXA CENTRAL SPINE, Routine 02/24/2021 9:54 AM detention curren t Results for this HIP, AND/OR WHOLE EDT use of aromatase proced ure are in BODY (GENERIC) inhibitor the results section. documented in this encounter Results DXA Central [...] have access to E-, please contact Radiology [facility] at [phone] Sunday thru Sunday 8am-4pm. Thank you for letting us participate in the care of this patient. ??If you are a health care provider and have any questi ons regarding this report, please contact the number below. ??For patients who have questions please contact the health wild animal caretaker that requested your imaging first. ? Narrative 02/25/2021 9:29 AM EDT EXAMINATION: DXA CENTRAL SPINE, HIP, AND/OR WHOLE BODY (GENERIC) CLINICAL HISTORY: 54 year old woman on termite control servicer treatment with anastrozole. No prior Dexa scan ?? (as entered by ordering provider) TECHNIQUE: Scans were acquired at the jason mbar spine, and left hip. COMPARISON: none FINDINGS: Femoral neck BMD: 0.857 ? g/cm2 Lowest T-score at a diagnostic region of interest: T-score: -1.2, MARIANA: Lumbar spine, WHO di agnosis: ??osteopenia Procedure Note Sin, Mony Patel MD - 02/25/2021Formattin g of this note might be different from the original. EXAMINATION: DXA CENTRAL SPINE, HIP, AND /OR WHOLE BODY (GENERIC) CLINICAL HISTORY: 54 year old woman on termite control servicer treatment with anastrozole. No prior Dexa scan (as entered by o [facility] provider) TECHNIQUE: Scans were acquired at the [...] have access to E-, please contact Radiology [facility] at [phone] Sunday thru Sunday 8am-4pm. Thank you for letting us participate in the care of this patient. If you are a health care provider and have any questi ons regarding this report, please contact the number below. For patients w ho have questions please contact the health wild animal caretaker that requested your imaging first. Arjun Saleh MD IMG DEXA ORDERABLES documented in this encounter Visit Diagnoses Diagnosis termite helper current use of aromatase inhib itor Use of aromatase inhibitors documented in this encounter Care Teams Customer Service Dispatcher Relationship Specialty Start Date End Date Madina sOhea APRN PCP - General Internal Medicine 07/09/[address] [place] [address] documented as of this encounter
--- OUTSIDE RECORDS SUMMARY | 2022-07-27 10:13 | XMS_ITS | Encounter Summary ---
:1965 Author Organization [facility] [place] [address] Care Team Providers Name Role Phone Madina Oshea APRN Primary Care Provider Encounter Details Date Type Department Care Team Description 02/28/2022 Hospital Encounter Hematology and Vitamin D deficiency; Oncology at [facility] Malignant neoplasm of overla pping sites of left breast in female, [place] [address] Social History Tobacco Use Types Packs/Day [...] Sig Dispensed Refills Start Date End Date anastrozole (Arimidex) 1 Take 1 tablet by 90 tablet 3 02/28 mg TabletIndications: mouth daily. Started Malignant neoplasm of on November 02, 2020. overlapping sites of left Please dispense 90 at breast in female, estrogen a time. receptor positive ibuprofen (Advil;Motrin) Take by mouth every 6 [...] Priority Date/Time Associated Diagnosis Comme nts HC VITAMIN D Routine 02/28/2022 11:28 AM Vitamin D deficiency Results for this TOTAL-25 HYDROXY EDT procedure a re in the results section. HEPATIC FUNCTION STAT 02/28/2022 11:28 AM Malignant neoplas m Results for this PANEL EDT of overlapping sites procedu re are in of left breast in the result s female, estrogen section. receptor positive documented in this encounter Results (ABNORMAL) Hepatic Function Panel (02/28/2022 11:28 AM EDT) P athologist Signature Total Protein 7.5 6.1 - 8.0 IMELDA [facility] g/dL [facility] Albumin 4.6 3.2 - 5.2 [facility] g/dL [facility] AST 23 0 - 30 [facility] unit/L [facility] ALT 32 (H) 0 - 30 [facility] unit/L [facility] Alk Phos 120 (H) 35 - 105 [facility] unit/L [facility] Total 0.3 0.2 - 1.3 IMEL[facility] Bilirubin mg/dL [facility] Bili, Direct 0.1 0.0 - 0.3 [facility] mg/dL [facility] Specimen Anatomical Collection Method Collection Time Receive d Time (Source) Location / / Volume Laterality Blood 02/28/2022 11:28 02/28/2022 AM EDT 11:33 AM EDT Resulting Agency Comment Spec In Lab Arjun Saleh MD CHEMISTRY ORDERABLES Performing Organization Address City/State/ZIP [place] [address] Vitamin D, 25-Hydroxy (02/28/2022 11:28 AM EDT) Patholo gist Method Time Signature 25-OH Vit D 34 21 - 100 Eye-FiMATTEO Total ng/mL [facility] 25-OH Vit D Sufficient [facility] Specimen Anatomical Collection Method Collection Time Receive d Time (Source) Location / / Volume Laterality Blood 02/28/2022 11:28 02/28/2022 AM EDT 11:33 AM EDT Resulting Agency Comment Spec In Lab Arjun Saleh MD CHEMISTRY ORDERABLES Performing Organization Address City/State/ZIP [place] [address] documented in this encounter Visit Diagnoses Diagnosis Vitamin D deficiency Unspecified vitamin D deficiency Malignant neoplasm of overlapping sites of left breast in female, estrogen receptor positive documented in this encounter Care Teams Warp Tier Relationship Specialty Start Date End Date Madina Oshea APRN PCP - General Internal Medicine 07/09/[address] [place] [address] documented as of this encounter
--- OUTSIDE RECORDS SUMMARY | 2022-07-27 10:14 | XMS_ITS | Encounter Summary ---
:1965 Author Organization [facility] [place] [address] Care Team Providers Name Role Phone Tanika Seay APRN Primary Care Provider [phone] Reason for Referral Diagnostic Test (Routine) - Closed Specialty Diagnoses / Procedures Referred By Contact Refer red To Contact Radiology Diagnoses Malignant neoplasm of left female breast, unspecified estrogen receptor status, unspecified site of breast Barbie Duenas MD [facility] Rad Mri Procedures MRI Breast wwo Contrast Bilat [facility] [place] [address] [place] [address] Referral ID Status Reason Start Date Expiration Date Visits V isits Requested Authorized [id number] Closed Specialty 07/07/2020 01/02/2021 1 1 Service Requested Encounter Details Date Type Department Care Team Description 07/07/2020 Orders Only General Surgery at Barbie Duenas neoplasm of [facility] MD Amanda left female breast, [facility] uns pecified estrogen Drive DR receptor status, [place] [address] GENERAL SURGERY unspecified site of [phone] [place] [address] breast (Primary Dx) Social History Tobacco Use Types Packs/Day Years Used Date Never Assessed Sex Assigned at Date Recorded Not on file documented as of this encounter Plan of Treatment Not on filedocumented as of this encounter Results (ABNORMAL) Comprehensive metabolic panel (non-fasting) (07/15/2020 1:50 PM EDT) athologist Signature Glucose Lvl 113 65 - 199 [facility] mg/dL [facility] Comment: Diabetes: >=200 mg/dL plus symp toms BUN 15 8 - 18 mg/dL [facility] Creatinine 0.76 0.70 - 1.20 mg/dL [facility] Sodium 140 135 - 145 mmol/L [facility] Potassium 3.5 3.5 - 5.0 mmol/L [facility] Comment: Please note: ??Patients with WBC >100,00 0 may have falsely elevated Potassium levels. ??For accurate Potassium quantif ication in these patients send serum separator tube (gold top) for subsequent determinations. ??Contact the Clinical Chemistry Laboratory if there are any qu estions. Chloride 103 98 - 107 mmol/L [facility] CO2 26 22 - 31 mmol/L [facility] Anion Gap 11 5 - 15 mmol/L [facility] Calcium 10.4 8.5 - 10.5 mg/dL [facility] Total Protein 7.6 6.1 - 8.0 gm/dL [facility] Albumin 4.5 3.2 - 5.2 gm/dL [facility] AST 28 0 - 30 unit/L [facility] ALT 48 (H) 0 - 30 unit/L [facility] Alk Phos 97 35 - 105 unit/L [facility] Total Bilirubin 0.4 0.2 - 1.3 mg/dL [facility] Estimated GFR 88 >=60 mL/min/1.73 m?? [facility] Comment: The eGFR was calculated using the CKD-EP I equation. As with all creatinine based estimates of kidney function, eGFR values calculated with the CKD-EPI equation are not accurate in patients wi th acute kidney failure, extremes of body mass or the acutely ill. [email or web address]/[facility] eGFR 102 >=60 mL/min/1.73 m?? [facility] Comment: The eGFR was calculated using the CKD-EP I equation. As with all creatinine based estimates of kidney function, eGFR values calculated with the CKD-EPI equation are not accurate in patients wi th acute kidney failure, extremes of body mass or the acutely ill. [email or web address]/[facility] Specimen Anatomical Collection Method Collection Time Receive d Time (Source) Location / / Volume Laterality Blood specimen 07/15/2020 1:50 PM 020 2:01 (specimen) EDT PM EDT Resulting Agency Comment Spec In Lab Barbie Duenas MD CHEMISTRY ORDERABLES Performing Organization Address City/State/ZIP [place] [address] MRI Breast wwo Contrast Bilat (07/09/2020 8:24 PM EDT) Anatomical Region Laterality Modality Breast N/A Magnetic Resonance Specimen (Source) Anatomical Location Collection Method / Collectio n Time Received Time / Laterality Volume Impressions 07/13/2020 8:49 AM EDT Irregular nonmass enhancement left breast 12:00 radian 48 cm from the nipple spanning up to 4 cm. RECOMMENDATION:Definitive surgical manag ement. LEFT BREAST BIRADS BI-RADS Category 6: K nown Biopsy-Proven Malignancy RIGHT BREAST BIRADS BI-RADS Category 1: Negative I have personally reviewed the image(s) and the resident's interpretation and agree with the findings, Ana vazquez at 07/13/2020 8:49 AM Thank you for letting us participate in the care of this patient. For questions regarding this report, please contact isaiah number below. ? 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 Computer algorithm analysis for lesion detection and kinetic contras t enhancement curve analysis was performed, using [employer] software. COMPARISON STUDIES: Compared and/or correlated with prior st udies including mammogram dated 06/28/2020, 06/30/2020 and 07/05/2020. FINDINGS: Background Enhancement Pattern (first po st Dotarem image): Minimal Amount of Fibroglandular Tissue: Heterog eneous fibroglandular tissue LEFT Breast:There is a 4.0 cm irregular area of nonmass enhancement at the site of the biopsy clip at 12:00 radian. LEFT BREAST LESION 1: ??4.1 cm Non mass enhancement Upper ??12 O'Clock 4 - 8 cm from the nip ple by MRI Non mass enhancement: Distribution: Segm ental Enhancement: Initial upslope: Fast Delayed phase: Washout RIGHT Breast:There are no morphologic ab normalities or areas of abnormal parenchymal enhancement. Lymph Node Basins/Other: There is no mehrdad dence of internal mammary or axillary adenopathy.. No significant abnormalitie s are seen in the chest wall or skin.. Barbie Duenas MD IMG MRI ORDERABLES documented in this encounter Visit Diagnoses Diagnosis Malignant neoplasm of left female breast , unspecified estrogen receptor status, unspecified site of breast - Primary Malignant neoplasm of left female breast , unspecified estrogen receptor status, unspecified site of breast documented in this encounter Care Teams Apparel Stock Checker Relationship Specialty Start Date End Date Tanika Seay APRN PCP - General 09/27/10 07/08/[address] [place] [address] documented as of this encounter
--- OUTSIDE RECORDS SUMMARY | 2022-07-27 10:14 | XMS_ITS | Encounter Summary ---
:1965 Author Organization [facility] [place] [address] Care Team Providers Name Role Phone Madina Oshea SLIDE FASTENERS INSPECTOR Primary Care Provider Encounter Details Date Type Department Care Team Description 07/01/2020 Ancillary Procedure Radiology Library at Madina Oshea, Breast density [facility] SLIDE FASTENERS INSPECTOR [address] [address] [place] [address] Social History Tobacco Use Types Packs/Day Years Used Date Never Assessed Sex Assigned at Date Recorded Not on file documented as of this encounter Plan of Treatment Not on filedocumented as of this encounter Procedures Procedure Name Priority Date/Time Associated Diagnosis Comme nts REQUEST FOR 2ND Routine 07/01/2020 11:23 AM Breast density Res ults for this READ MAMMO EDT procedure are i n the results section. documented in this encounter Results Request for 2nd read Mammo (07/01/2020 11:23 AM EDT) Anatomical Region Laterality Modality SO Specimen (Source) Anatomical Location Collection Method / Collectio n Time Received Time / Laterality Volume Impressions 07/01/2020 1:02 PM EDT Highly suspicious 1.2 cm area of distortion which most likely is sonographically apparent. RECOMMENDATION: Ultrasound followed by ultrasound-guided core biopsy of left breast 12:00 radian lesion measuring 1.2 cm 4.5 cm from the nipple. Left breast BI-RADS Category 4: Suspicio us Finding - Biopsy Should Be Considered Right breast BI-RADS Category 1: Negativ e Please note: The interpretation of the [facility] Breast Imaging Radiologist subspecialist may differ fro m the original radiologist's interpretation. This is usually not due to a deficiency of the original interpreting radiologist, rather due to the greater skill level afforded by sub-specialization in the field and/or r easonable variations in interpretations. If you have a concern regarding the D- interpretation you may contact the [facility] Breast Plastic Frame Inserter Office at . Thank you for letting us participate in the care of this patient. For questions regarding this report, please contact [facility] number below. ? Electronically signed by: Ana Harris [facility] ([phone]), at 07/01/2020 1:02 PM Narrative 07/01/2020 1:02 PM EDT INTERPRETATION OF OUTSIDE BREAST IMAGING I have been asked to consult on this pat ient by Madina Oshea APRN because he/she believes a review of this study m ay change or alter the care of this patient. STUDIES FROM: [facility] DATES: 06/28/2020, 06/30/2020 CLINICAL HISTORY: LEFT BREAST DENSITY @1 2:00, CAT 4; ?BX, ?MORE IMAGING; What Modality is the exam? Mammography; Body Part (please add comments as necessary): LEFT BREAST; Sending Institution [facility]; Date of exam 20200630; I believe a reinterpretation o f this exam may alter care of Patient. Yes. ?? COMPARISONS: This study was compared with prior image s. FINDINGS: CC and MLO views were obtained of each b reast. Spot compression CC and spot compression MLO views were obtained of t he left upper breast. 2-D direct digital capture, 3-D tomosynthesis and computer aided detection (CAD) were used.. Static ultrasound images of the upper left elio st are provided. Please note: Breast ultrasound is scow derrick operator dependent. Comple te assessment of the breast tissue is not possible through static images or ci ne loops. Because breast ultrasound is a dynamic process the interpretive value o f outside images is limited. There is a highly suspicious 1.2 cm area of architectural distortion in the left upper central breast middle third 12:00 radian 4.5 cm from the nipple. The right breast is unremarkable. Static images partially depict a hypoech oic area at the 12:00 radian, which would facilitate ultrasound-guided core biopsy. Procedure Note Ana Houston MD - 07/01/2020Form atting of this note might be different from the original. INTERPRETATION OF OUTSIDE BREAST IMAGING I have been asked to consult on this pat ient by Madina Oshea APRN because he/she believes a review of this study m ay change or alter the care of this patient. STUDIES FROM: [facility] DATES: 06/28/2020, 06/30/2020 CLINICAL HISTORY: LEFT BREAST DENSITY @1 2:00, CAT 4; ?BX, ?MORE IMAGING; What Modality is the exam? Mammography; Body Part (please add comments as necessary): LEFT BREAST; Sending Institution [facility]; Date of exam 20200630; I believe a reinterpretation o f this exam may alter care of Patient. Yes. COMPARISONS: This study was compared with prior image s. FINDINGS: CC and MLO views were obtained of each b reast. Spot compression CC and spot compression MLO views were obtained of t he left upper breast. 2-D direct digital capture, 3-D tomosynthesis and computer aided detection (CAD) were used.. Static ultrasound images of the upper left elio st are provided. Please note: Breast ultrasound is scow derrick operator dependent. Comple te assessment of the breast tissue is not possible through static images or ci ne loops. Because breast ultrasound is a dynamic process the interpretive value o f outside images is limited. There is a highly suspicious 1.2 cm area of architectural distortion in the left upper central breast middle third 12:00 radian 4.5 cm from the nipple. The right breast is unremarkable. Static images partially depict a hypoech oic area at the 12:00 radian, which would facilitate ultrasound-guided core biopsy. IMPRESSION Highly suspicious 1.2 cm area of distort ion which most likely is sonographically apparent. RECOMMENDATION: Ultrasound followed by ultrasound-guided core biopsy of left breast 12:00 radian lesion measuring 1.2 cm 4.5 cm from the nipple. Left breast BI-RADS Category 4: Suspicio us Finding - Biopsy Should Be Considered Right breast BI-RADS Category 1: Negativ e Please note: The interpretation of the D [facility] Breast Imaging Radiologist subspecialist may differ fro m the original radiologist's interpretation. This is usually not due to a deficiency of the original interpreting radiologist, rather due to the greater skill level afforded by sub-specialization in the field and/or r easonable variations in interpretations. If you have a concern regarding the D-H interpretation you may contact the [facility] Breast Plastic Frame Inserter Office at . Thank you for letting us participate in the care of this patient. For questions regarding this report, please contact e number below. Madina Oshea APRN IMG OUTSIDE INTERPRETATION O RDERABLES documented in this encounter Visit Diagnoses Diagnosis Breast density Other sign and symptom in breast documented in this encounter Care Teams Academic Affairs Assistant Relationship Specialty Start Date End Date Madina Oshea APRN PCP - General Internal Medicine 07/09/20 [address] [place] [address] documented as of this encounter
--- OUTSIDE RECORDS SUMMARY | 2022-07-27 10:14 | XMS_ITS | Encounter Summary ---
:1965 Author Organization [facility] [address] Care Team Providers Name Role Phone Tanika Seya APRN Primary Care Provider [phone] Encounter Details Date Type Department Care Team Description 07/18/2018 Ancillary Procedure Radiology Library at Gina Seay [facility] [address] [place] [id number] [phone] (Wo rk) Social History Tobacco Use Types Packs/Day Years Used Date Never Assessed Sex Assigned at Date Recorded Not on file documented as of this encounter Plan of Treatment Not on filedocumented as of this encounter Procedures Procedure Name Priority Date/Time Associated Diagnosis Comme nts FILM LIBRARY Routine 07/18/2018 12:00 AM Results for this STORAGE ONLY MAMMO EDT procedure are in the results section. documented in this encounter Results Film Library- Storage Only Mammo (07/18/2018 12:00 AM EDT) Specimen (Source) Anatomical Location Collection Method / Collectio n Time Received Time / Laterality Volume Narrative [facility] - 07/01/2020 9:15 AM EDT This exam is auto-finalizing. It's purpo se is for storage only. Tanika Seay APRN [facility] FILM LIBRARY ORDERABLES Performing Organization Address City/State/ZIP Code Phon e Number [facility] [place], [place] documented in this encounter Visit Diagnoses Not on filedocumented in this encounter Care Teams Distribution Engineering Technologist Relationship Specialty Start Date End Date Tanika Seay APRN PCP - General 09/27/10 07/08/[address] [place] [address] documented as of this encounter
--- OUTSIDE RECORDS SUMMARY | 2022-07-27 10:14 | XMS_ITS | Encounter Summary ---
:1965 Author Organization [facility] [place] [address] Care Team Providers Name Role Phone Tanika Seay APRN Primary Care Provider [phone] Encounter Details Date Type Department Care Team Description 07/05/2020 Hospital Encounter Mammography at [facility] [place], Abnormal finding on [facility] Ana Hill MD breast imaging [facility] [address] DIAGNOSTIC [phone] [place] [address] Social History Tobacco Use Types Packs/Day Years Used Date Never Assessed Sex Assigned at Date Recorded Not on file documented as of this encounter Medications at Time of Discharge Medication Sig Dispensed Refills Start Date End Date ibuprofen (Advil;Motrin) Take by mouth every 6 0 03/30/2017 600 mg Tablet hours as needed. nystatin (MYCOSTATIN) Apply 1 drop topically 0 Cream as needed. documented as of this encounter Plan of Treatment Not on filedocumented as of this encounter Procedures Procedure Name Priority Date/Time Associated Comments Diagnosis MAMMO DIAGNOSTIC Routine 07/05/2020 2:25 PM Abnormal finding o n Results for this WITHOUT CAD WITH EDT breast imaging procedure are in NABEEL LEFT the results section. documented in this encounter Results Mammo Diagnostic Without Cad With Nabeel Left (07/05/2020 2:25 PM EDT) Anatomical Region Laterality Modality Breast Left Mammography Specimen (Source) Anatomical Location Collection Method / Collectio n Time Received Time / Laterality Volume Impressions 07/07/2020 8:03 AM EDT Concordant malignant result RECOMMENDATION: Surgical excision preceded by breast MRI as discussed with the patient and conveyed to the Comprehensive Breast Pro gram. REVIEW PATH CONFERENCE?: No Preliminary report signed by: Gemma Juan at 07/06/2020 3:48 PM I have personally reviewed the image(s) and the resident's interpretation and agree with the findings, Ashok Simpson at 07/07/2020 8:03 AM Thank you for letting us participate in the care of this patient. For questions regarding this report, please contact e number below. ? Electronically signed by: Ashok Simpson [facility] ([phone]), at 07/07/2020 8:03 AM Narrative 07/07/2020 8:03 AM EDT LEFT BREAST ULTRASOUND GUIDED AUTOMATED CORE BIOPSY CLINICAL HISTORY: abnormal u/s. 54-year-old female with a 1.1 cm irregul ar mass in the left breast 12:00 radian 4 cm from the nipple. PROCEDURAL DETAILS: Informed consent was obtained and a time out procedure was performed per protocol. Using local anesthetic (less t sotelo 5 cc of 1% lidocaine), sterile technique, and ultrasound guidance the l esion in the left breast was localized and sampled. Multiple satisfactory core biopsy specim ens were obtained using a 14-gauge automated device. A [employer] 14G marker clip was marques jonatan. The clip was in satisfactory position both sonographically and at fol low-up cranio-caudal and true lateral digital mammography. COMPLICATIONS: None. PROCEDURAL ATTESTATION: Resident: Gemma Juan MD I was present with the resident for the mckeon component(s) of the procedure and otherwise remained immediately available for the duration of the procedure. I attest to having personally viewed the i mages/test and approve the above interpretation. IMAGING DIFFERENTIAL DIAGNOSIS: invasive ductal carcinoma, invasive lobu lar carcinoma, radial scar PATHOLOGIC DIAGNOSIS: Invasive carcinoma with ductal and lobul ar features Ana Houston MD IMG MAMMO ORDERABLES documented in this encounter Visit Diagnoses Diagnosis Abnormal finding on breast imaging Other (abnormal) findings on radiologica l examination of breast documented in this encounter Care Teams Medical Lab Director Relationship Specialty Start Date End Date Tanika Seay, CLINICAL CARE COORDINATOR PCP - General 09/27/10 07/08/[address] [place] [address] documented as of this encounter
--- OUTSIDE RECORDS SUMMARY | 2022-07-27 10:14 | XMS_ITS | Encounter Summary ---
:1965 Author Organization [facility] [place] [address] Care Team Providers Name Role Phone Tanika Seay APRN Primary Care Provider [phone] Encounter Details Date Type Department Care Team Description 07/05/2020 Hospital Encounter Mammography at [facility] [place] Zuurbier, Abnormal finding on [facility] Ana Hill MD breast imaging [facility] [phone] DIAGNOSTIC [phone] [place] [address] Social History Tobacco Use Types Packs/Day Years [...] as needed. documented as of this encounter Progress Notes Ashok Simpson MD - 07/05/2020 1:40 PM EDT Pre-procedure note for needle breast biopsies performed in radiology. Procedure date: Today Procedure type: left breast ultrasound guided biopsy Allergies: Patient has no allergy information on record. Medications: No current outpatient medications on file. Current Facility-Administered Medications: ??? lidocaine (XYLOCAINE) 10 mg/mL (1 %) injection 10 mg, 10 mg, Intradermal, Once, Ashok Simpson MD Anticoagulation status: none stopped on: N/A Imaging reviewed and procedural plan approved by Dr. Ashok Simpson MD documented in this encounter Plan of Treatment Not on filedocumented as of this encounter Procedures Procedure Name Priority Date/Time Associated Diagnosis Comme nts MAMMO US BIOPSY Routine 07/05/2020 2:14 PM Abnormal finding on Results for this LEFT EDT breast imaging procedure are in the results section. SURGICAL PATHOLOGY Routine 07/05/2020 2:08 PM Res ults for this REPORT EDT procedure are i n the results section. SPECIMEN TO Routine 07/05/2020 2:08 PM Results f or this PATHOLOGY EDT procedure are i n the results section. documented in this encounter Results Mammo Us Biopsy Left (07/05/2020 2:14 PM EDT) Anatomical Region Laterality Modality Breast [...] please contact e number below. ? Narrative 07/07/2020 8:03 AM EDT LEFT BREAST [...] obtained using a 14-gauge automated device. A TouchMail 14G marker clip was marques jonatan. The [...] features Ana Houston MD IMG MAMMO ORDERABLES Surgical Pathology Report (07/05/2020 2:08 PM EDT) Component Value Ref Test Analysis Performed At [facility] Method Time Signature Surgical [id number] ? Location: [address] [place] [address] Pathology [place] Report The signing pathologist has (i) examined the relevant preparation(s) for the [facility] specimen(s) and (ii) rendered or confirmed the diagnosis(es) . HOSPITAL LABORATORY . ?Molecu lar Genetics RESULTS TEST: HER2 (ERBB2) FISH, Breast METHOD: Fluorescence in situ hybridization (FISH) with chromosome 17 centromere (17p11.1-q11.1) probe and a locus specific probe for the HER2 gene locus (17q11.2- q12). SAMPLE ANALYZED: A1-6 RESULT: ?NEGATIVE FOR HER2/KRISTIAN AMPLIFICATION ? TOTAL # SIGNALS/TOTAL # NUCLEI COUNTED FOR H ER2 PROBE = 77 ? TOTAL # SIGNALS/TOTAL # NUCLEI COUNTED FOR CEP-17 PROBE = 75 ? HER2 TO CEP- 17 RATIO = 1.0 ?(NORMAL RANGE <2.0) ? TOTAL # NUCLEI COUNTED = 40 ? AVERAGE # HER2 signals/cell = 1.9 Interpretation: ??Paraffin-embedded tissue sections were s ubmitted for HER2 (ERBB2) gene amplification analysis by FISH. ??Direct analysis was performed using the [employer] Kit. ??Slide adequacy and signal enumeration were evaluated and satisfactory for both contr ol and patient slides. ??A signal ratio derived from the HER2 probe and the CEP-17 c entromere probe of ?2.0 is considered positive for HER2 gene amplification. The 2013 ASCO/CAP guideline recommendation for HER2 testing in breast cancer states that samples with a HER2 to CEP-17 ratio of les s than 2.0 are non-amplified. Specimens with a HER2 to CE P-17 range of ?2.0 are considered amplified. This test is approved by the U.S. FDA for clinical diagnosti c use. Reference: Rafal NUNEZ et al. Recommendations for human epidermal growth factor receptor 2 testing in breas t cancer: [place] Society of Clinical Oncology/College of [place] Pathologists cl inical practice guideline update. J Clin Oncol. 2013 Sep 05. Rafal NUNEZ et al. Human Epide rmal Growth Factor Receptor 2 Testing in Breast Cancer: [place] Society of Clinica l Oncology/College of [place] Pathologists Clinical Practice Guideline Focused Update. Arch Pathol Lab Med. 2018 April 03/J Clin Oncol. 2017April 03. Electronically signed by: ??Amber Bowman MD Verified: ??07/09/2020 ?Pathologist Performed at: ??-[facility] Dept. of Pathology, [place], [place] ? Addendum ADDENDUM DISCUSSION Immunohistochemistry Studies . ADDENDUM DISCUSSION Specimen: Left breast, core needle biopsy (A1) ER immunoreactivity: Positive (>90% cancer cells with immuno staining) Stain intensity: Strong AL immunoreactivity: Positive (80-90% cancer cells with immu nostaining) Stain intensity: Strong HER2 FISH: separate report to follow ? *Diagnostic mckeon for hormone receptors (ASCO/CAP GUIDELINES, 2020): ?Negative immunoreactivity: <1% tumor cells with immuno staining ?Positive immunoreactivity: >=1% tumor cells with immun ostaining ??Low Positive: 1-10% tumor cells with immunostaining* *There are limited data on t he overall benefit of endocrine therapies for patients with low level (1-10%) ER e xpression, but they currently suggest possible benefit, so patients are considered eligible for endocrine treatment. There are data that suggest invasive cancers wi th these results are heterogenous in both behavior and biology and often have gene expression profiles more similar to ER-negative cancers. Immunohistochemical assays w ere performed on paraffin-embedded tissue sections fixed in 10% neutral buffered for silva for 6-72 hours using the polymer system technique with appropriate controls. The assays were performed according to the demo event specialist ? 's instructions using Anti-ER (SP1) and Anti-AL (16) antibodie s. These tests were developed and their per formance characteristics determined by [facility]. They may not have been cleared or approved by the US Food and Drug Adm inistration. The FDA does not require such tests to go through premarket FDA revie w. These tests are used for clinical purposes and should not be regarded as investig ational or for research. This laboratory is certified under the Clinical Laborato ry Improvement Amendments (CLIA) as qualified to perform high complexity clinical laboratory testing. Electronically signed by: ??Kandice SOUZA, Daljit [place] Verified: ??07/07/2020 ?Pathologist Performed at: ??-[facility] Dept. of Pathology, [place], [place] ?Surgic al Pathology DIAGNOSIS Needle biopsies: ?Left breast Diagnosis: ? 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 of Pathology, [place], [place] DISCUSSION Studies for ER, AL, and HER2 have been ordered; result s will be issued in an addendum. SPECIMEN(S) SUBMITTED A - LEFT BREAST U/S BX 14G, biopsy (4) CLINICAL INFORMATION Architectural distortion: 1. IDC 2. [facility] Report to: Madina Oshea [facility], [place] . SPECIMEN PROCESSING A - Labeled/Fixative: Left breast U/S BX 14 G, formalin. Quantity/Size: Four, ranging 0.8-1.5 x 0.2 cm Tissue Description: Yellow-white fibrofatty needle core biop sies. Sections/Processing: Entirely submitted in 2 cassettes label ed A1-A2. Ischemic Time: Not provided ??MLL Specimen (Source) Anatomical Collection Method Collection Time Re ceived Time Location / / Volume Laterality 07/05/2020 2:08 PM EDT Ashok Simpson MD PATHOLOGY/CYTOLOGY ORDERABLE S Performing Organization Address City/State/[place] [address] Specimen to Pathology (07/05/2020 2:08 PM EDT) Specimen Anatomical Collection Method Collection Time Receive d Time (Source) Location / / Volume Laterality AP Specimen 07/05/2020 2:08 PM 0 2:08 EDT PM EDT Narrative [facility] - 07/05/2020 2:08 PM EDT Specimen requisition ordered. ??Separate Pathology report to follow Ashok Simpson MD PATHOLOGY/CYTOLOGY ORDERABLE S Performing Organization Address City/State/[place] [address] documented in this encounter Visit Diagnoses Diagnosis Abnormal finding on breast imaging Other (abnormal) findings on radiologica l examination of breast documented in this encounter Administered Medications Inactive Administered Medications - up to 3 most recent administrations Medication Order MAR Action Action Date Dose Rate Site lidocaine (XYLOCAINE) 10 mg/mL (1 Given 07/05/2020 1:50 PM EDT 1 0 mg %) injection 10 mg 10 mg, Intradermal, ONCE, 1 dose, On 07/05/20 at 1400, Routine documented in this encounter Care Teams Head Stock Operator Relationship Specialty Start Date End Date Tanika Seay APRN PCP - General 09/27/10 07/08/[address] [place] [address] documented as of this encounter
--- OUTSIDE RECORDS SUMMARY | 2022-07-27 10:14 | XMS_ITS | Encounter Summary ---
:1965 Author Organization [facility] [place] [address] Care Team Providers Name Role Phone Madina Oshea APRN Primary Care Provider Reason for Visit Reason Comments Advice Only Consultation (Routine) - Closed Specialty Diagnoses / Procedures Referred By Contact Refer red To Contact Hematology and Oncology Diagnoses Abnormal finding on imaging Madina Oshea, [facility] Hem Onc 3k HEALTH SAFETY INSTRUCTOR [address] [phone] Fax: Referral ID Status Reason Start Date Expiration Date Visits Requ ested Visits Authorized [id number] Closed 07/01/2020 07/01/2021 1 1 Encounter Details Date Type Department Care Team Description 07/15/2020 Office Visit Hematology and Barbie Duenas MD [facility] [place] [address] Malignant neoplasm of Oncology at [facility] Riya Lomas RN lower-inner quadrant [facility] of left b reast in Drive female, estrogen [place], [place] [phone] Social History Tobacco Use Types Packs/Day Years Used Date Never Smoker Smokeless Tobacco: Never Used Sex Assigned at Date Recorded Not on file documented as of this encounter Last Filed Vital Signs Vital Sign Reading Time Taken Comments Blood Pressure 136/78 07/15/2020 2:52 PM EDT Pulse 69 07/15/2020 2:52 PM EDT Temperature 36.2 ??C (97.1 ??F) 07/15/2020 2:52 PM EDT Respiratory Rate 18 07/15/2020 2:52 PM EDT Oxygen Saturation 97% 07/15/2020 2:52 PM EDT Inhaled Oxygen Concentration - - Weight 107.4 kg (236 lb 12.8 07/15/2020 2:52 PM with sa ndals oz) EDT Height 173.4 cm (5' 8.27) 07/15/2020 2:52 PM EDT Body Mass Index 35.72 07/15/2020 2:52 PM EDT documented in this encounter Progress Notes Barbie Duenas MD - 07/15/2020 3:00 PM EDT Subjective: Patient ID: Martha Hansen is a 54 y.o. female. HPI Martha is a 54 yo female [...] the nipple. The right breast is unremarkable. Biopsy revealed a low grade IDC which is strongly Er/ND+ and her2-. MRI was performed for preoperative planning. There is a 4.0 cm irregular area of nonmass enhancement at the site of the biopsy clip at 12:00 radian. LEFT BREAST LESION 1: 4.1 cm Non mass enhancement Upper 12 O'Clock 4 - 8 cm from the nipple by MRI Martha has been quite anxious about the diagnosis and lack of a plan but is physically feeling well. She denies any known breast masses, nipple discharge, skin changes or adenopathy. SH: with 2 sons and a daughter. Non smoker. Rare etoh FH: no breast or ovarian cancer PMH Hypothyroidism Review of Systems Constitutional: Negative. HENT: Negative. Eyes: Negative. Respiratory: Negative. Cardiovascular: Negative. Gastrointestinal: Negative. Endocrine: Negative. Genitourinary: Negative. Musculoskeletal: Negative. Skin: Negative. Allergic/Immunologic: Negative. Neurological: Negative. Hematological: Negative. Psychiatric/Behavioral: The patient is nervous/anxious. Objective: Physical Exam Constitutional: Appearance: Normal appearance. [...] alert. Psychiatric: Mood and Affect: Mood normal. IMaging: as in hpi. I have personally reviewed CBC- WNL BMP- alt 48 Assessment and Plan: Martha is a 54 yo female with [...] we will proceed with this as well. We briefly touched upon systemic adjuvant therapy. Martha understands that endocrine therapy will be recommended and she is willing to undergo chemotherapy if indicated and understands that oncotype DX testing will likely be recommended. Risks of surgery including bleeding, infection, need for additional surgery and lymphedema were discussed and consent was obtained. Riya Lomas RN - 07/15/2020 3:00 PM EDT Comprehensive Breast Program Note Martha Hansen is a 54 y.o. female with left breast cancer. I met with the patient and her ,Armand, in clinic before her surgical oncology consultation. She is working for [employer] at works from home. 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 Martha states she would be interested in lumpectomy but not sure if this is recommended versus a mastecotmy. Her MIL recently from [place] and this is difficult for them. States she had a PAunt diagnosed with breast cancer in her 50's. No FH of ovarian CA. Distress Scale Distress Score: 8 When Screening Completed: Before treatment Screening Location: [address] Problem List Emotional Problems: Fears, Nervousness, Sadness, Worry Spiritual/Adventism Concerns: No Physical Problems: Sleep Other Problems: Distress at level 8 before surgical consultation and 3 post consult. Referrals Made Today: Social work SPECIFIC TEACHIN. Breast Cancer Treatment Handbook (Ernestina Leach, 2017) was sent via mail. 2. Information from our Shared Decision-Marking Program on Early-Stage Breast Cancer previously provided. 3. She understands she will meet with a medical oncologist and, possibly, a radiation oncologist (prefers [facility]) after surgery. 4. Contact phone number for questions or concerns in the immediate post- operative period. 5. Comprehensive Breast Program Binder provided. 6. Post Breast Surgery Exercises handout created by physical therapists at [facility] to begin after partial mastectomy and continue until she is back to her baseline. She understands she may begin the firsttwo exercises gently after mastectomy and will meet with a physical therapist post-operatively who will customize her ROM routine. 7. Breast Cancer Treatment Process care map provided and reviewed. 8. Things to Consider...What I Wish I Knew advice from breast cancer patients handout provided. 9. Contact information for the General Surgery Clinic Nurses was given and the Doctor parks and recreation manager systemexplained. Fifteen minutes was spent in education and providing support. Martha has our contact information. She may schedule surgery on way out (in 4L) today. Pre-op MRI: Yes Abnormalities detected No (other than index lesion) Referral to familial counseling: No documented in this encounter Plan of Treatment Not on filedocumented as of this encounter Visit Diagnoses Diagnosis Malignant neoplasm of lower-inner quadra nt of left breast in female, estrogen receptor positive documented in this encounter Care Teams Galvanizing Pot Runner Relationship Specialty Start Date End Date Madina Oshea APRN PCP - General Internal Medicine 07/09/[address] [place] [address] documented as of this encounter
--- OUTSIDE RECORDS SUMMARY | 2022-07-27 10:14 | XMS_ITS | Encounter Summary ---
:1965 Author Organization [facility] [place] [address] Care Team Providers Name Role Phone Tanika Seay APRN Primary Care Provider [phone] Encounter Details Date Type Department Care Team Description 06/30/2020 Ancillary Procedure Radiology Library at Gina Seay [facility] [address] [place] [id number] [phone] (Wo rk) Social History Tobacco Use Types Packs/Day Years Used Date Never Assessed Sex Assigned at Date Recorded Not on file documented as of this encounter Plan of Treatment Not on filedocumented as of this encounter Procedures Procedure Name Priority Date/Time Associated Diagnosis Comme nts FILM Routine 06/30/2020 12:00 AM Results for this LIBRARY-STORAGE EDT procedure ar e in ONLY US BREAST the results section. documented in this encounter Results Film Library Storage Only US Breast (06/30/2020 12:00 AM EDT) Specimen (Source) Anatomical Location Collection Method / Collectio n Time Received Time / Laterality Volume Narrative [facility] - 07/01/2020 8:55 AM EDT This exam is auto-finalizing. It's purpo se is for storage only. Tanika Seay APRN IM FILM LIBRARY ORDERABLES Performing Organization Address City/State/ZIP Code Phon e Number [facility] [place], [place] documented in this encounter Visit Diagnoses Not on filedocumented in this encounter Care Teams Parachute Supervisor Relationship Specialty Start Date End Date Tanika Seay APRN PCP - General 09/27/10 07/08/[address] [place] [address] documented as of this encounter
--- OUTSIDE RECORDS SUMMARY | 2022-07-27 10:14 | XMS_ITS | Encounter Summary ---
:1965 Author Organization [facility] [place] [address] Care Team Providers Name Role Phone Tanika Seay APRN Primary Care Provider [phone] Encounter Details Date Type Department Care Team Description 07/05/2020 Hospital Encounter [place] [facility] Abnormal finding on [facility] Ana Hill MD breast imaging [facility] [address] DIAGNOSTIC [phone] [place] [address] Social History Tobacco Use Types Packs/Day Years [...] Priority Date/Time Associated Diagnosis Comme nts MAMMO BREAST US Routine 07/05/2020 1:38 PM Abnormal finding on Results for this LIMITED LEFT EDT breast imaging procedure are in the results section. documented in this encounter Results US Breast Limited Left (07/05/2020 1:38 PM EDT) Anatomical Region Laterality Modality Breast Left Mammography Specimen (Source) Anatomical Location Collection Method / Collectio n Time Received Time / Laterality Volume Impressions 07/05/2020 2:55 PM EDT There is a 1.1 cm irregular mass in the left breast, 12:00 radian, 4 cm from the nipple. BI-RADS Category 4: Suspicious Finding - Biopsy Should Be Considered RECOMMENDATION: An ultrasound-guided bio psy was recommended and performed on the same day. I have personally reviewed the image(s) and the resident's interpretation and agree with the findings, Ashok Simpson at 07/05/2020 2:55 PM Thank you for letting us participate in the care of this patient. For questions regarding this report, please contact e number below. ? Narrative 07/05/2020 2:55 PM EDT EXAMINATION: LEFT breast ultrasound CLINICAL HISTORY: abnormal mammo 54-year-old with a 1.2 cm area of distor tion in the left breast at 12:00 radian, 4.5 cm from the nipple. TECHNIQUE: Targeted left breast grayscal e and color Doppler ultrasound. COMPARISON: Correlation made with prior mammogram and left breast ultrasound dated 06/30/2020 FINDINGS: I performed high-resolution ultrasound o f the left breast at 12:00, 4 cm from the nipple following the technologist. T here is a 1.1 cm irregular indistinct isoechoic mass which corroborates with t he mammographic findings in size and location. Ana Houston MD IMG MAMMO ORDERABLES documented in this encounter Visit Diagnoses Diagnosis Abnormal finding on breast imaging Other (abnormal) findings on radiologica l examination of breast documented in this encounter Care Teams Roping Machine Tender Relationship Specialty Start Date End Date Tanika Seay, CYLINDER DIE MACHINE HELPER PCP - General 09/27/10 07/08/[address] [place] [address] documented as of this encounter
--- OUTSIDE RECORDS SUMMARY | 2022-07-27 10:14 | XMS_ITS | Encounter Summary ---
:1965 Author Organization [facility] [place] [address] Care Team Providers Name Role Phone Tanika Seay Jessica BELLAMY Primary Care Provider [phone] Encounter Details Date Type Department Care Team Description 05/12/2011 Orders Only Radiology Whitney Beckwith MD [facility] [place] [address] DIAGNOSTIC RADIOLOGY [phone] [place], [place] [address] (Wo rk) Social History Tobacco Use Types Packs/Day Years Used Date Never Assessed Sex Assigned at Date Recorded Not on file documented as of this encounter Plan of Treatment Not on filedocumented as of this encounter Procedures Procedure Name Priority Date/Time Associated Diagnosis Comme nts FILM LIBRARY Routine 05/12/2011 11:35 AM Results for this STORAGE ONLY MAMMO EDT procedure are in the results section. documented in this encounter Results FILM LIBRARY- STORAGE ONLY MAMMO (05/12/2011 11:35 AM EDT) Specimen (Source) Anatomical Collection Method Collection Time Re ceived Time Location / / Volume Laterality 05/12/2011 11:35 AM EDT Narrative [facility] - 05/25/2014 7:08 PM EDT This is a non-reportable exam. Procedure Note Shad Barron - 05/25/2014Formatti ng of this note might be different from the original. This is a non-reportable exam. Whitney Beckwith MD IMG FILM LIBRARY ORDERABLES Performing Organization Address City/State/ZIP Code [facility] e Number [facility] [address] [facility] [place] [address] documented in this encounter Visit Diagnoses Not on filedocumented in this encounter Care Teams Corduroy Cutter Operator Relationship Specialty Start Date End Date Tanika Seay APRN PCP - General 09/27/10 07/08/[address] [place] [address] documented as of this encounter
--- OUTSIDE RECORDS SUMMARY | 2022-07-27 10:14 | XMS_ITS | Encounter Summary ---
:1965 Author Organization [facility] [place] [address] Care Team Providers Name Role Phone Dayo Madina Hill APRN Primary Care Provider Encounter Details Date Type Department Care Team Description 07/09/2020 Notes Only Care Management Anisha Cifuentes, [place] [address] Social History Tobacco Use Types Packs/Day Years Used Date Never Assessed Sex Assigned at Date Recorded Not on file documented as of this encounter Progress Notes Anisha Cifuentes MSW - 07/09/2020 12:20 PM EDT CCM/SW contacted pt after her breast biopsy results indicated she has ER/MN+, low grade, left breast, invasive carcinoma with lobular features. Pt lives in [place], [place] and has support from her family. She states her roheoz-ko-qdt from breast cancer and her children are upset about her diagnosis. Pt has support from her who will accompany her to her surgical consult visit with Dr. Duenas on 07/15/20. I addressed pt's questions and encouraged her to contact me with any additionalconcerns. She is aware that Monalisa Lomas, Nurse Navigator, and I will meet with her after her appt with Dr. Duenas. P- CCM/SW will continue to assess and address pt's psychosocial needs. documented in this encounter Plan of Treatment Not on filedocumented as of this encounter Visit Diagnoses Not on filedocumented in this encounter Care Teams Ore Bridge Operator Relationship Specialty Start Date End Date Madina Oshea APRN PCP - General Internal Medicine 07/09/[address] [place] [address] documented as of this encounter
--- OUTSIDE RECORDS SUMMARY | 2022-07-27 10:14 | XMS_ITS | Encounter Summary ---
:1965 Author Organization [facility] [place] [address] Care Team Providers Name Role Phone Tanika Seay APRN Primary Care Provider [phone] Encounter Details Date Type Department Care Team Description 06/28/2020 Ancillary Procedure Radiology Library at Gina Seay [facility] [address] [place] [phone] (Wo rk) Social History Tobacco Use Types Packs/Day Years Used Date Never Assessed Sex Assigned at Date Recorded Not on file documented as of this encounter Plan of Treatment Not on filedocumented as of this encounter Procedures Procedure Name Priority Date/Time Associated Diagnosis Comme nts FILM LIBRARY Routine 06/28/2020 12:00 AM Results for this STORAGE ONLY MAMMO EDT procedure are in the results section. documented in this encounter Results Film Library- Storage Only Mammo (06/28/2020 12:00 AM EDT) Specimen (Source) Anatomical Location Collection Method / Collectio n Time Received Time / Laterality Volume Narrative [facility] [place] [facility] - 07/01/2020 9:14 AM EDT This exam is auto-finalizing. It's purpo se is for storage only. Tanika Seay APRN [facility] FILM LIBRARY ORDERABLES Performing Organization Address City/State/ZIP Code Phon e Number DH RAD DH RAD [place], [place] documented in this encounter Visit Diagnoses Not on filedocumented in this encounter Care Teams Lang Path Therapist Relationship Specialty Start Date End Date Tanika Seya APRN PCP - General 09/27/10 07/08/[address] [place] [address] documented as of this encounter
--- OUTSIDE RECORDS SUMMARY | 2022-07-27 10:14 | XMS_ITS | Encounter Summary ---
:1965 Author Organization [facility] [place] [address] Care Team Providers Name Role Phone Tanika Seay APRN Primary Care Provider [phone] Encounter Details Date Type Department Care Team Description 10/02/2012 Hospital Encounter XRay at [facility], DR LACY [address] [place] [address] [place] [address] Social History Tobacco Use Types Packs/Day Years Used Date Never Assessed Sex Assigned at Date Recorded Not on file documented as of this encounter Plan of Treatment Not on filedocumented as of this encounter Procedures Procedure Name Priority Date/Time Associated Diagnosis Comme nts REQUEST FOR 2ND Routine 10/02/2012 2:44 PM Result s for this READ MAMMO EST procedure are i n the results section. documented in this encounter Results REQUEST FOR 2ND READ MAMMO (10/02/2012 2:44 PM EST) Anatomical Region Laterality Modality Other Specimen (Source) Anatomical Collection Method Collection Time Re ceived Time Location / / Volume Laterality 10/02/2012 2:44 PM EST Impressions 10/03/2012 12:59 PM EST IMPRESSION: NEGATIVE bilateral mammogram (BIRADS Cat egory 1). Questioned areas of nodularity on the Right MLO view and the Left CC view efface on the diagnostic imaging of 09/27/12. Routine screening r ecommended. If a second interpretation is requested of the outside ultrasound the patient would need to come to this institution f or a repeat ultrasound. Please schedule accordingly if so desired. Preliminary report E-mailed to MARTA Krishna and Mony Prakash APRN on 10/03/12. Narrative 10/03/2012 12:59 PM EST INTERPRETATION OF OUTSIDE BILATERAL DIRECT DIGITAL SCREENING MAMMOGRAM 09/17/12 WITH DIAGNOSTIC IMAGING OF BOTH BREASTS 09/27/12 (RIGHT ML, LEFT CONE CC, RIGHT CONE MLO, RIGHT CONE MAG MLO, LEFT CC RO LLED LATERAL AND ROLLED MEDIAL VIEWS) FROM [facility] COMPARED TO PRIOR EXAMS 1, 04/13/10, 04/06/08, 11/15/06, 10/31/05 AND 09/30/04: CLINICAL INDICATION: I have been asked t o consult on this patient by MARTA Stoddard and Mony Prakash APRN because they believe a review of this study may change or alter the care of th is patient. FINDINGS: The original outside interpret ation of the screening exam was a bilateral callback for a question of a n odular density in the central portion of the Left breast on the CC view only a nd questionable nodularity in the central portion of the Right breast on t he MLO view only. In the Left breast there is no persisten t abnormality on cone CC. Incidental note is made of a few punctate calcifica tions on the cone CC view which are unchanged as compared to multiple prior exams including cone view of 10/09/08. In the Right breast the questioned area of nodularity on the MLO view disperses on the true lateral and cone MLO views. A second interpretation of the outside u ltrasound cannot be given due to the air lift operator dependent nature of the modalit y. Procedure Note Tarsha Cameorn MD - 10/03/2012 INTERPRETATION OF OUTSIDE BILATERAL DIRE CT DIGITAL SCREENING MAMMOGRAM 09/17/12 WITH DIAGNOSTIC IMAGING OF BOTH BREASTS 09/27/12 (RIGHT ML, LEFT CONE CC, RIGHT CONE MLO, RIGHT CONE MAG MLO, LEFT CC RO LLED LATERAL AND ROLLED MEDIAL VIEWS) FROM [facility] COMPARED TO PRIOR EXAMS 1, 04/13/10, 04/06/08, 11/15/06, 10/31/05 AND 09/30/04: CLINICAL INDICATION: I have been asked t o consult on this patient by MARTA Stoddard and Mony Prakash APRN because they believe a review of this study may change or alter the care of th is patient. FINDINGS: The original outside interpret ation of the screening exam was a bilateral callback for a question of a n odular density in the central portion of the Left breast on the CC view only a nd questionable nodularity in the central portion of the Right breast on t he MLO view only. In the Left breast there is no persisten t abnormality on cone CC. Incidental note is made of a few punctate calcifica tions on the cone CC view which are unchanged as compared to multiple prior exams including cone view of 10/09/08. In the Right breast the questioned area of nodularity on the MLO view disperses on the true lateral and cone MLO views. A second interpretation of the outside u ltrasound cannot be given due to the air lift operator dependent nature of the modalit y. IMPRESSION IMPRESSION: NEGATIVE bilateral mammogram (BIRADS Cat egory 1). Questioned areas of nodularity on the Right MLO view and the Left CC view efface on the diagnostic imaging of 09/27/12. Routine screening r ecommended. If a second interpretation is requested of the outside ultrasound the patient would need to come to this institution f or a repeat ultrasound. Please schedule accordingly if so desired. Preliminary report E-mailed to MARTA Krishna and Mony Prakash APRN on 10/03/12. Mony Prakash APRN IMG OUTSIDE INTERPRETATION O RDERABLES documented in this encounter Visit Diagnoses Not on filedocumented in this encounter Care Teams Pile Driving Supervisor Relationship Specialty Start Date End Date Tanika Seay APRN PCP - General 09/27/10 07/08/[address] [place] [address] documented as of this encounter
--- OUTSIDE RECORDS SUMMARY | 2022-07-27 10:14 | XMS_ITS | Encounter Summary ---
:1965 Author Organization [facility] [place] [address] Care Team Providers Name Role Phone Tanika Seay APRN Primary Care Provider [phone] Encounter Details Date Type Department Care Team Description 09/30/2014 Ancillary Procedure Radiology Library at Gina Seay [facility] [address] [place] [phone] (Wo rk) Social History Tobacco Use Types Packs/Day Years Used Date Never Assessed Sex Assigned at Date Recorded Not on file documented as of this encounter Plan of Treatment Not on filedocumented as of this encounter Procedures Procedure Name Priority Date/Time Associated Diagnosis Comme nts FILM LIBRARY Routine 09/30/2014 12:00 AM Results for this STORAGE ONLY MAMMO EST procedure are in the results section. documented in this encounter Results Film Library- Storage Only Mammo (09/30/2014 12:00 AM EST) Specimen (Source) Anatomical Location Collection Method / Collectio n Time Received Time / Laterality Volume Narrative [facility] - 07/01/2020 9:21 AM EDT This exam is auto-finalizing. It's purpo se is for storage only. Tanika Seay APRN [facility] FILM LIBRARY ORDERABLES Performing Organization Address City/State/ZIP Code Phon e Number DH RAD [facility] [place] documented in this encounter Visit Diagnoses Not on filedocumented in this encounter Care Teams Pointer Machine Operator Relationship Specialty Start Date End Date Tanika Seay APRN PCP - General 09/27/10 07/08/[address] [place] [address] documented as of this encounter
--- OUTSIDE RECORDS SUMMARY | 2022-07-27 10:14 | XMS_ITS | Encounter Summary ---
:1965 Author Organization [facility] [place] [address] Care Team Providers Name Role Phone Dayo, Madinakuldip Hill APRN Primary Care Provider Encounter Details Date Type Department Care Team Description 07/16/2020 [facility] Amanda left female breast, [facility] uns pecified estrogen Drive DR receptor status, [place] [phone] GENERAL SURGERY unspecified site of [phone] [place] [phone] 6 breast Social History Tobacco Use Types Packs/Day Years Used Date Never Smoker Smokeless Tobacco: Never Used Sex Assigned at Date Recorded Not on file documented as of this encounter Plan of Treatment Not on filedocumented as of this encounter Results Mammo Specimen Left (07/23/2020 3:05 PM EDT) Anatomical Region Laterality Modality Breast Left Mammography Specimen (Source) Anatomical Location Collection Method / Collectio n Time Received Time / Laterality Volume Impressions 07/23/2020 3:07 PM EDT Positive specimen x-ray as described. Results phoned to the operating surgeon intraoperatively. Thank you for letting us participate in the care of this patient. For questions regarding this report, please contact e number below. ? Narrative 07/23/2020 3:07 PM EDT EXAMINATION: Specimen x-ray INDICATION: Intraoperative specimen imag e for adequacy of lesion and/or clip removal TECHNIQUE: A single projection specimen x-ray from the left breast is obtained superimposed on alphanumeric grid COMPARISON: This is correlated with preo perative imaging FINDINGS: The intact wire, clip and lesi on are contained within the specimen. There are no close margins. Barbie Duenas MD IMG MAMMO ORDERABLES Mammo [place] Node Injection (07/23/2020 11:18 AM EDT) Anatomical [...] e number below. ? Electronically signed by: Mary Ellen coker MD, Radiology [place] ([phone]), at 07/23/2020 12:07 PM Narrative 07/23/2020 12:07 PM EDT NEEDLE LOCALIZATION [...] interpretation. Barbie Duenas MD IMG MAMMO ORDERABLES Mammo Needle Localization Left (07/23/2020 11:14 AM [...] e number below. ? Electronically signed by: Mary Ellen coker MD, Radiology [place] ([phone]), at 07/23/2020 12:07 PM Narrative 07/23/2020 12:07 PM EDT NEEDLE LOCALIZATION [...] estrogen receptor status, unspecified site of breast Malignant neoplasm of left female breast , unspecified estrogen receptor status, unspecified site of breast Malignant neoplasm of left female breast , unspecified estrogen receptor status, unspecified site of breast Malignant neoplasm of left female breast , unspecified estrogen receptor status, unspecified site of breast documented in this encounter Care Teams Tack Coverer Relationship Specialty Start Date End Date Madina Oshea APRN PCP - General Internal Medicine 07/09/[address] [place] [address] documented as of this encounter
--- OUTSIDE RECORDS SUMMARY | 2022-07-27 10:14 | XMS_ITS | Encounter Summary ---
:1965 Author Organization [facility] [place] [address] Care Team Providers Name Role Phone Madina Oshea APRN Primary Care Provider Encounter Details Date Type Department Care Team Description 07/15/2020 Laboratory Appointment Lab 3L [facility] Malignant neoplasm of [facility] left female breast, [facility] unspecifi ed estrogen Drive receptor status, [place], [place] [phone] breast [phone] Social History Tobacco Use Types Packs/Day Years Used Date Never Smoker Smokeless Tobacco: Never Used Sex Assigned at Date Recorded Not on file documented as of this encounter Plan of Treatment Not on filedocumented as of this encounter Procedures Procedure Name Priority Date/Time Associated Comments Diagnosis HEMOGRAM Routine 07/15/2020 1:50 PM Malignant neoplasm Res ults for this EDT of left female procedure are in breast, unspecified the resu lts estrogen receptor section. status, unspecified site of breast DIFFERENTIAL, Routine 07/15/2020 1:50 PM Malignant neoplasm Re sults for this AUTOMATED EDT of left female procedure are in breast, unspecified the resu lts estrogen receptor section. status, unspecified site of breast HC VENIPUNCTURE Routine 07/15/2020 1:50 PM Malignant neoplasm EDT of left female breast, unspecified estrogen receptor status, unspecified site of breast COMPREHENSIVE Routine 07/15/2020 1:50 PM Malignant neoplasm Re sults for this METABOLIC PANEL EDT of left female procedure are in (NON-FASTING) breast, unspecified the res ults estrogen receptor section. status, unspecified site of breast documented in this encounter Results Differential, Automated (07/15/2020 1:50 PM EDT) P athologist Signature Neutrophils % 50.4 % [facility] Neutr Abs (ANC) 3.58 1.70 - [facility] 6.10 [facility] x10(3)/[facility] LABORATORY Lymphocytes % 37.9 % [facility] Lymphocytes Abs 2.7 0.9 - 3.2 [facility] x10(3)/[facility] LABORATORY Monocytes % 6.7 % [facility] Monocyte Abs 0.5 0.3 - 0.9 [facility] x10(3)/[facility] LABORATORY Eosinophils % 3.9 % [facility] Eosinophils Abs 0.3 0.0 - 0.4 [facility] x10(3)/[facility] LABORATORY Basophils % 0.8 % [facility] Basophils Abs 0.1 0.0 - 0.1 [facility] x10(3)/[facility] LABORATORY Immature Gran % 0.30 % [facility] Comment: Immature granulocytes(IG's)percentage an d absolute count will include metamyelocytes, myelocytes, and promyelo cytes. Blood smears from CBCs yielding IG's will be scanned manually for concor dance. If this scan disagrees with the automated IG or if promyelocytes are not ed, a manual differential will be performed. Josefina Gran Abs 0.02 0.00 - 0.04 x10(3)/[facility] MAR Y [facility]ORATORY Specimen Anatomical Collection Method Collection Time Receive d Time (Source) Location / / Volume Laterality Blood specimen 07/15/2020 1:50 PM 020 2:01 (specimen) EDT PM EDT Resulting Agency Comment Spec In Lab Barbie Duensa MD HEMATOLOGY ORDERABLES Performing Organization Address City/State/[place] [address] Hemogram (07/15/2020 1:50 PM EDT) athologist Signature WBC 7.1 4.0 - 9.5 [facility] x10(3)/[facility] LABORATORY RBC 4.98 4.00 - IMELDA MATTEO 5.21 [facility] x10(6)/[facility] LABORATORY Hemoglobin 14.2 11.7 - [facility] 15.5 gm/dL [facility] Hematocrit 42.3 35.7 - [facility] 45.8 % [facility] MCV 84.9 82.6 - [facility] 94.4 [facility] LABORATORY MCH 28.5 27.1 - IMELDA MATTEO 32.0 pg [facility] MCHC 33.6 31.7 - [facility] gm/dL [facility] Platelets 273 145 - 357 [facility] x10(3)/[facility] LABORATORY RDWSD 38.0 37.0 - [facility] 46.0 [facility] LABORATORY RDWCV 12.3 11.5 - [facility] 14.1 % [facility] MPV 9.3 7.6 - 12.9 [facility] LABORATORY nRBC % Auto 0.0 % [facility] nRBC Abs Auto 0.000 0.000 - [facility] 0.000 [facility] x10(3)/[facility] LABORATORY Specimen Anatomical Collection Method Collection Time Receive d Time (Source) Location / / Volume Laterality Blood specimen 07/15/2020 1:50 PM 020 2:01 (specimen) EDT PM EDT Resulting Agency Comment Spec In Lab Barbie Duenas MD HEMATOLOGY ORDERABLES Performing Organization Address City/State/[place] [address] (ABNORMAL) Comprehensive metabolic panel (non-fasting) (07/15/2020 1:50 PM EDT) athologist Signature Glucose Lvl 113 65 - 199 [facility] mg/dL [facility] Comment: Diabetes: >=200 mg/dL plus symp toms BUN 15 8 - 18 mg/dL [facility] Creatinine 0.76 0.70 - 1.20 mg/dL [facility] Sodium 140 135 - 145 mmol/L [facility] Potassium 3.5 3.5 - 5.0 mmol/L [facility] Comment: Please note: ??Patients with WBC >100,00 0 may have falsely elevated Potassium levels. ??For accurate Potassium quantif ication in these patients send serum separator tube (gold top) for subsequent determinations. ??Contact the Clinical Chemistry Laboratory if there are any qu estions. Chloride 103 98 - 107 mmol/L [facility] CO2 26 22 - 31 mmol/L [facility] Anion Gap 11 5 - 15 mmol/L [facility] Calcium 10.4 8.5 - 10.5 mg/dL [facility] Total Protein 7.6 6.1 - 8.0 gm/dL [facility] Albumin 4.5 3.2 - 5.2 gm/dL [facility] AST 28 0 - 30 unit/L [facility] ALT 48 (H) 0 - 30 unit/L [facility] Alk Phos 97 35 - 105 unit/L [facility] Total Bilirubin 0.4 0.2 - 1.3 mg/dL [facility] Estimated GFR 88 >=60 mL/min/1.73 m?? [facility] Comment: The eGFR was calculated using the CKD-EP I equation. As with all creatinine based estimates of kidney function, eGFR values calculated with the CKD-EPI equation are not accurate in patients wi th acute kidney failure, extremes of body mass or the acutely ill. http://[employer] eGFR 102 >=60 mL/min/1.73 m?? [facility] Comment: The eGFR was calculated using the CKD-EP I equation. As with all creatinine based estimates of kidney function, eGFR values calculated with the CKD-EPI equation are not accurate in patients wi th acute kidney failure, extremes of body mass or the acutely ill. http://[employer] [place] Specimen Anatomical Collection Method Collection Time Receive d Time (Source) Location / / Volume Laterality Blood specimen 07/15/2020 1:50 PM 020 2:01 (specimen) EDT PM EDT Resulting Agency Comment Spec In Lab Barbie Duenas MD CHEMISTRY ORDERABLES Performing Organization Address City/State/[place] [address] documented in this encounter Visit Diagnoses Diagnosis Malignant neoplasm of left female breast , unspecified estrogen receptor status, unspecified site of breast documented in this encounter Care Teams Regional Business Manager Relationship Specialty Start Date End Date Madina Oshea APRN PCP - General Internal Medicine 07/09/[address] [place] [address] documented as of this encounter
--- OUTSIDE RECORDS SUMMARY | 2022-07-27 10:19 | XMS_ITS | Encounter Summary ---
:1965 Author Organization Health system Address [address] [place] [address] Care Team Providers Name Role Phone Tanika Seay TRACK INSPECTOR Primary Care Provider Encounter Details Date Type Department Care Team Description 02/07/2013 Results Only [facility] Lana Astorga Jessica, DO [phone] [facility] [place], [place] [id number] (Wo rk) Social History Tobacco Use Types Packs/Day Years Used Date Never Assessed Sex Assigned at Date Recorded Not on file documented as of this encounter Plan of Treatment Not on filedocumented as of this encounter Procedures Procedure Name Priority Date/Time Associated Diagnosis Comme [facility] SURGICAL PATHOLOGY Routine 02/07/2013 7:04 EDT Re sults for this procedure are i n the results section. documented in this encounter Results SURGICAL PATHOLOGY (02/07/2013 7:04 EDT) Pathology Report: SURGICAL PATHOLOGY REPORT VELA A INDERMEREDITH Reports generated via electronic interface contain ameya ginal data; LAB however they are lacking the format of the original re port. Caution should be taken when reading/interpreting unfo rmatted reports. Name: ? BRIAN HANSEN ? Accession #: ? [id number] ? : ? 1965 (Age: 47) ??F ? Collect Date: ? 02/07/2013 ? Location: ? [facility] ? Receive Date: ? 013 ? Provider: LANA ASTORGA DO Copy to: [facility] ? Final Pathologic Diagnosis: ? Appendix, appendectomy: 1. ??Acute appendicitis and periappendicitis. ? 2. ??Fibroobliterative tip. Document reviewed and electronically signed by: SCARLETT DIAZ MD Report ??Date: 02/11/2013 17:03 By the signature above, the attending physician certif ies that he/she has personally conducted a gross and/or microscopic examin ation of the described specimens and rendered or confirmed the above diagnosi s. Specimen(s) Received: ? Appendix Clinical History: ? Abdominal pain Gross Description: ? Received in formalin labelled Brian Hansen and appendix is a vermiform appendix measuring 6.5 cm in length by 0.2 to 0.8 cm in diameter. ??The proximal resection margin is stapled and inked blue. ??The proximal two-thirds of the serosa is fernandez-pink and f ocally hyperemic, with fibrous changes to the distal one third. There is attached adipose tissue. ??Upon se ctioning, the wall thickness ranges from 0.2 cm to 0.5 cm. ??The luminal diameter ranges from pinpoint to 0.4 cm. ??No nod ules or perforations are identified. ??Tax Processor sections are submitted as (1), which includes the inke d proximal margin, en face, one-half of the distal end, and one repres entative cross section. ??(Pa Wasserman/elodia End of Report Specimen Performing Organization Address City/State/ZIP Code Phon e Number [facility] [address] [place] [address] [facility] [address] [place] [address] documented in this encounter Visit Diagnoses Not on filedocumented in this encounter Care Teams Solar Installation Foreman Relationship Specialty Start Date End Date Tanika Seay NP PCP - General 04/11/10 02/09/13 [address] [place] [address] documented as of this encounter
--- OUTSIDE RECORDS SUMMARY | 2022-07-27 10:19 | XMS_ITS | Encounter Summary ---
:1965 Author Organization [facility] Address [address] [place] [address] Care Team Providers Name Role Phone Tanika Weber ROUTE SALESMAN Primary Care Provider Encounter Details Date Type Department Care Team Description 09/08/2004 Results Only [facility] - Debra Ortega sonTanika, ROUTE SALESMAN conversion [address] [place] [phone] (Wo rk) Social History Tobacco Use Types Packs/Day Years Used Date Never Assessed Sex Assigned at Date Recorded Not on file documented as of this encounter Plan of Treatment Not on filedocumented as of this encounter Procedures Procedure Name Priority Date/Time Associated Diagnosis Comme nts CYTOPATHOLOGY Routine 09/08/2004 0:00 EST Results for this procedure are i n the results section . documented in this encounter Results CYTOPATHOLOGY (09/08/2004 0:00 EST) Pathology Report: CYTOPATHOLOGY REPORT [facility] Reports generated via electronic interface contain ameya ginal data; however they are lacking the format of the original re port. Caution should be taken when reading/interpreting unfo rmatted reports. Name: ? BRIAN HANSEN ? Accession #: ? [id number] : ? 1965 (Age: 39) ??F ?Collect Date: ? 1102/2004 Location: ? [facility] ? Receive Date : ? 09/12/2004 Provider: ?TANIKA WEBER ROUTE SALESMAN Copy to: ? Specimen/Source: ?ThinPrep Pap Test, Cervix Last Menstrual Period: ? 06/10/03 ? SPECIMEN ADEQUACY ? Satisfactory for Evaluation - transformation zone component present GENERAL CATEGORIZATION ? Negative for Intraepithelial Lesion or Malignan cy ? Document reviewed and electronically signed by: ? TY Edwards(ASCP) ? Report Date: ??09/14/2004 13:06 End of Report Specimen Performing Organization Address City/State/ZIP Code Phon e Number [facility] [address] [place] [address] SERVICES [facility] [address] [place] [address] documented in this encounter Visit Diagnoses Not on filedocumented in this encounter Care Teams Clock And Watch Hands Painter Relationship Specialty Start Date End Date Tanika Weber NP PCP - General 04/11/10 02/09/[address] [place] [phone] documented as of this encounter
--- OUTSIDE RECORDS SUMMARY | 2022-07-27 10:19 | XMS_ITS | Encounter Summary ---
:1965 Author Organization [facility] Address [address] [place] [address] Care Team Providers Name Role Phone Tanika Weber REFINERY OPERATOR REFORMING UNIT Primary Care Provider Encounter Details Date Type Department Care Team Description 12/05/[address] [facility] - Debra Vivas sonTanika, REFINERY OPERATOR REFORMING UNIT conversion [address] [place] [phone] (Wo rk) Social History Tobacco Use Types Packs/Day Years Used Date Never Assessed Sex Assigned at Date Recorded Not on file documented as of this encounter Plan of Treatment Not on filedocumented as of this encounter Procedures Procedure Name Priority Date/Time Associated Diagnosis Comme nts CYTOPATHOLOGY Routine 12/05/2007 0:00 EST Results for this procedure are i n the results section . documented in this encounter Results CYTOPATHOLOGY (12/05/2007 0:00 EST) Pathology Report: CYTOPATHOLOGY REPORT [facility] Reports generated via electronic interface contain ameya ginal data; however they are lacking the format of the original re port. Caution should be taken when reading/interpreting unfo rmatted reports. Name: ? BRIAN HANSEN ? Accession #: ? [id number] : ? 1965 (Age: 42) ??F ?Collect Date: ? 11/07 Location: ? [facility] ? Receive Date : ? 12/06/2007 Provider: ?TANIKA WEBER REFINERY OPERATOR REFORMING UNIT Copy to: ? Specimen/Source: ? ThinPrep Pap Test, Cervix/Endocervix, processed on [employer]eng ThinPrep Imaging System, with manual evaluation Last Menstrual Period: ? 11-21-07 Other: ? HPVA - HPV testing requested if ASC-US on the current ThinPrep Pap test. ? SPECIMEN ADEQUACY ? Satisfactory for Evaluation - transformation zone component present - scant squamous epithelial component secondary to exc essive blood GENERAL CATEGORIZATION ? Negative for Intraepithelial Lesion or Malignan cy ? Document reviewed and electronically signed by: ? Lali Escamilla, [facility](ASCP) ? Report Date: ??12/11/2007 15:54 End of Report Specimen Performing Organization Address City/State/ZIP Code Phon e Number [facility] [address] [place] [address] SERVICES [facility] [address] [place] [address] documented in this encounter Visit Diagnoses Not on filedocumented in this encounter Care Teams Materials Engineer Relationship Specialty Start Date End Date Tanika Weber NP PCP - General 04/11/10 02/09/13 [address] [place] [phone] documented as of this encounter
--- OUTSIDE RECORDS SUMMARY | 2022-07-27 10:19 | XMS_ITS | Encounter Summary ---
:1965 Author Organization [facility] Address [address] [place] [address] Care Team Providers Name Role Phone Unavailable Primary Care Provider Unavailable Encounter Details Date Type Department Care Team Description 01/22/[address] Results Only [facility] - Debra Vivas son, Tanika Lopez, GEAR GENERATOR SET UP OPERATOR conversion [address] [place] [phone] (Wo rk) Social History Tobacco Use Types Packs/Day Years Used Date Never Assessed Sex Assigned at Date Recorded Not on file documented as of this encounter Plan of Treatment Not on filedocumented as of this encounter Procedures Procedure Name Priority Date/Time Associated Diagnosis Comme nts CYTOPATHOLOGY Routine 01/22/2001 0:00 EST Results for this procedure are i n the results section . documented in this encounter Results CYTOPATHOLOGY (01/22/2001 0:00 EST) Pathology Report: CYTOPATHOLOGY REPORT [facility] Reports generated via electronic interface contain ameya ginal data; however they are lacking the format of the original re port. Caution should be taken when reading/interpreting unfo rmatted reports. Name: ? BRIAN HANSEN ? Accession #: ? [id number] : ? 1965 (Age: 35) ??F ?Collect Date: ? 01/04 Location: ? [facility] ? Receive Date : ? 01/24/2001 Provider: ?TANIKA WEBER GEAR GENERATOR SET UP OPERATOR Copy to: ? Specimen/Source: ?ThinPrep Pap Test, Cervix/ Endocervix Last Menstrual Period: ? 12/25/00 ? SPECIMEN ADEQUACY ? Satisfactory for evaluation. GENERAL CATEGORIZATION ? Within Normal Limits ? Document reviewed and electronically signed by: ? JOSE Cotton(ASCP) ? Report Date: ??01/25/2001 13:51 End of Report Specimen Performing Organization Address City/State/ZIP Code Phon e Number [facility] [address] [place] [address] SERVICES [facility] [address] [place] [address] documented in this encounter Visit Diagnoses Not on filedocumented in this encounter
--- OUTSIDE RECORDS SUMMARY | 2022-07-27 10:19 | XMS_ITS | Encounter Summary ---
:1965 Author Organization [facility] Address [address] [place] [address] Care Team Providers Name Role Phone Unavailable Primary Care Provider Unavailable Encounter Details Date Type Department Care Team Description 03/30/2010 Results Only [facility] Gina Seay, TEREZA Laboratory Services - [address] [address] [place] [address] [phone] Social History Tobacco Use Types Packs/Day Years Used Date Never Assessed Sex Assigned at Date Recorded Not on file documented as of this encounter Plan of Treatment Not on filedocumented as of this encounter Procedures Procedure Name Priority Date/Time Associated Comments Diagnosis HPV DETECTION, HIGH Routine 03/30/2010 15:04 Resu lts for this RISK TYPES EDT procedure are i n the results section. CYTOPATHOLOGY Routine 03/30/2010 0:00 Results for this EDT procedure are i n the results section. documented in this encounter Results HUMAN PAPILLOMA VIRUS DNA TEST (03/30/2010 15:04 EDT) Specimen Description Cervix, ThinPrep [facility] vial Result Negative for HPV [facility] types 16, 18, 31, 33, 35, 39, 45, 51, 52, 56, 58, 59, and 68. Report Status Final [facility] 04/11/2010 Specimen Performing Organization Address City/State/ZIP Code Phon e Number [facility] [address] [place] [address] SERVICES [facility] [address] [place] [address] CYTOPATHOLOGY (03/30/2010 0:00 EDT) Pathology Report: CYTOPATHOLOGY REPORT ? [facility] Reports generated via electr onic interface contain original data; ? however they are lacking the format of the original report. ? Caution should be taken when reading/interpreting unformatted reports. ? Name: ? BRIAN HANSEN ? Accession #: ? [id number] ? : ? 1965 (Age: 44) ??F ?Collect Date: ? 03/30/2010 ? Location: ? [facility] ? Receive Date: ? 03/31/2010 ? Provider: ?BRIANA L R OBINSON MANAGER COMMUNITY DEVELOPMENT ? Copy to: ? Specimen/Source: ? Pap Test, Endocervix, ThinPrep Imaging System with ? manual evaluation ? Last Menstrual Period: ? 05/17/10 ? Other: ? HPVDX - HPV testing requeste d regardless of diagnosis on current ThinPrep Pap ?? test. ? SPECIMEN ADEQUACY ? Satisfactory for Eval uation ? - transformation zone compon ent present ? GENERAL CATEGORIZATION ? Negative for Intraepi thelial Lesion or Malignancy ? Document reviewed and electr onically signed by: ? Ebony Sagar, CT(ASCP ) ? Report Date: ??06/01/ 2010 10:29 ? End of Report ? Specimen Performing Organization Address City/State/ZIP Code Phon e Number [facility] [address] [place] [address] SERVICES [facility] [address] [place] [address] documented in this encounter Visit Diagnoses Not on filedocumented in this encounter
--- OUTSIDE RECORDS SUMMARY | 2022-07-27 10:19 | XMS_ITS | Encounter Summary ---
:1965 Author Organization [facility] Address [address] [place] [address] Care Team Providers Name Role Phone Mony Prakash APRN Primary Care Provider [phone] Encounter Details Date Type Department Care Team Description 12/02/2013 Hospital Encounter [facility]- Ernestine Unknown, Provider, Silvestre [place] [facility] [phone] [place] [address] (Work) [phone] Social History Tobacco Use Types Packs/Day Years Used Date Never Assessed Sex Assigned at Date Recorded Not on file documented as of this encounter Discharge Disposition Disposition Code Departure Means Destination Home or Self Senior Living documented in this encounter Plan of Treatment Not on filedocumented as of this encounter Visit Diagnoses Not on filedocumented in this encounter Care Teams Paper Coating Supervisor Relationship Specialty Start Date End Date Mony Prakash APRN PCP - General 02/10/13 [address] [place] [address] documented as of this encounter
--- OUTSIDE RECORDS SUMMARY | 2022-07-27 10:19 | XMS_ITS | Encounter Summary ---
:1965 Author Organization [facility] Address [address] [place] [address] Care Team Providers Name Role Phone Tanika Weber KENNEL HELPER Primary Care Provider Encounter Details Date Type Department Care Team Description 07/21/2010 Results Only [facility] Tanika Cordero MD Laboratory Services - [address] [place] [address] [place] [address] Social History Tobacco Use Types Packs/Day Years Used Date Never Assessed Sex Assigned at Date Recorded Not on file documented as of this encounter Plan of Treatment Not on filedocumented as of this encounter Procedures Procedure Name Priority Date/Time Associated Diagnosis Comme nts SURGICAL PATHOLOGY Routine 07/21/2010 0:00 EDT Re sults for this procedure are i n the results section. documented in this encounter Results SURGICAL PATHOLOGY (07/21/2010 0:00 EDT) Pathology Report: SURGICAL PATHOLOGY REPORT ? [facility] Reports generated via [employer] Mitus interface contain original data; ? LAB however they are lacking the format of the original report. ? Caution should be taken when reading/interpreting unformatted reports. ? Name: ? BRIAN HANSEN ? Accession #: ? [id number] ? : ? 1965 (Age: 44) ??F ? Collec t Date: ? 07/21/2010 ? Location: ? [facility] ? R eceive Date: ? 07/21/2010 ? Provider: TANIKA PATY MD ? Copy to: TANIKA L WEBER N P ? Final Pathologic Diagnosis: ? Endometrium, curettag e: ? 1. ?Weakly prol iferative endometrium. ? 2. ? Focal breakdown nicola nges. ? Document reviewed and electr onically signed by: ? Benjie Estrada, MD ? Report ??Date: 07/25/2010 17 :18 ? By the signature above, the attending physician certifies that he/she has ? personally conducted a gross and/or microscopic examination of the described ? specimens and rendered or co nfirmed the above diagnosis. ? Specimen(s) Received: ? Endometrial curetting s ? Clinical History: ? Menorrhagia; LMP: 9/7 /2009 ? Gross Description: ? Received in formalin labelled Brian Hansen and endometrial curettings is a 4.0 x 2.0 x 1.0 cm aggr egate of fernandez, focally brown tissue admixed with ? blood clot. ??The specimen i s submitted entirely as (A1) through (A3). ??(J. ? Tessitore)/klb ? End of Report ? Specimen Performing Organization Address City/State/ZIP Code Phon e Number [facility] [address] [place] [address] SERVICES [facility] [address] [place] [address] documented in this encounter Visit Diagnoses Not on filedocumented in this encounter Care Teams Coater Relationship Specialty Start Date End Date Tanika Weber, TEREZA PCP - General 04/11/10 02/09/[address] [place] [phone] documented as of this encounter
--- OUTSIDE RECORDS SUMMARY | 2022-07-27 10:19 | XMS_ITS | Encounter Summary ---
:1965 Author Organization [facility] Address [address] [place] [address] Care Team Providers Name Role Phone Unavailable Primary Care Provider Unavailable Encounter Details Date Type Department Care Team Description 06/04/2002 Results Only [facility] - Debra Vivas son, Tanika Lopez, COMMUNITY MENTAL HEALTH WORKER conversion [address] [place] [phone] (Wo rk) Social History Tobacco Use Types Packs/Day Years Used Date Never Assessed Sex Assigned at Date Recorded Not on file documented as of this encounter Plan of Treatment Not on filedocumented as of this encounter Procedures Procedure Name Priority Date/Time Associated Diagnosis Comme nts CYTOPATHOLOGY Routine 06/04/2002 0:00 EDT Results for this procedure are i n the results section . documented in this encounter Results CYTOPATHOLOGY (06/04/2002 0:00 EDT) Pathology Report: CYTOPATHOLOGY REPORT [facility] Reports generated via electronic interface contain ameya ginal data; however they are lacking the format of the original re port. Caution should be taken when reading/interpreting unfo rmatted reports. Name: ? BRIAN HANSEN ? Accession #: ? [id number] : ? 1965 (Age: 36) ??F ?Collect Date: ? 05/07 Location: ? [facility] ? Receive Date : ? 06/09/2002 Provider: ?TANIKA WEBER COMMUNITY MENTAL HEALTH WORKER Copy to: ? Specimen/Source: ?ThinPrep Pap Test, Cervix/ Endocervix Last Menstrual Period: ? 05/11/02 ? SPECIMEN ADEQUACY ? Satisfactory for Evaluation - transformation zone component present GENERAL CATEGORIZATION ? Negative for Intraepithelial Lesion or Malignan cy ? Document reviewed and electronically signed by: ? TY Chavez(ASCP) ? Report Date: ??06/11/2002 15:09 End of Report Specimen Performing Organization Address City/State/ZIP Code Phon e Number [facility] [address] [place] [address] SERVICES [facility] [address] [place] [address] documented in this encounter Visit Diagnoses Not on filedocumented in this encounter
--- OUTSIDE RECORDS SUMMARY | 2022-07-27 10:19 | XMS_ITS | Encounter Summary ---
:1965 Author Organization [facility] Address [address] [place] [address] Care Team Providers Name Role Phone Unavailable Primary Care Provider Unavailable Encounter Details Date Type Department Care Team Description 03/11/2009 Orders Only [facility] Gina Seay, TEREZA Laboratory Services - [address] [address] [place] [address] [phone] Social History Tobacco Use Types Packs/Day Years Used Date Never Assessed Sex Assigned at Date Recorded Not on file documented as of this encounter Plan of Treatment Not on filedocumented as of this encounter Procedures Procedure Name Priority Date/Time Associated Diagnosis Comme nts CYTOPATHOLOGY Routine 03/11/2009 0:00 EDT Results for this procedure are i n the results section . documented in this encounter Results CYTOPATHOLOGY (03/11/2009 0:00 EDT) Pathology Report: CYTOPATHOLOGY REPORT ? [facility] Reports generated via Trapster interface contain original data; ? however they are lacking the format of the original report. ? Caution should be taken when reading/interpreting unformatted reports. ? Name: ? BRIAN HANSEN ? Accession #: ? [id number] ? : ? 1965 (Age: 43) ??F ?Collect Date: ? 03/11/2009 ? Location: ? [facility] ? Receive Date: ? 03/11/2009 ? Provider: ?BRIANA L R OBINSON PLASTIC PRESS OPERATOR ? Copy to: ? Specimen/Source: ? Pap Test, Cervix, ThinPrep Imaging System with manual ?? evaluation ? Last Menstrual Period: ? 04/10/09 ? Other: ? HPVA - HPV testing requested if ASC-US on the current ThinPrep Pap test. ? SPECIMEN ADEQUACY ? Satisfactory for Eval uation ? - transformation zone compon ent present ? GENERAL CATEGORIZATION ? Negative for Intraepi thelial Lesion or Malignancy ? Document reviewed and electr onically signed by: ? Anisha Rao, CT( CP)(IAC) ? Report Date: ??05/12/ 2009 09:34 ? End of Report ? Specimen Performing Organization Address City/State/[facility] Code Phon e Number [facility] [address] [place] [address] SERVICES [facility] [address] [place] [address] documented in this encounter Visit Diagnoses Not on filedocumented in this encounter
--- OUTSIDE RECORDS SUMMARY | 2022-07-27 10:19 | XMS_ITS | Encounter Summary ---
:1965 Author Organization [facility] Address [address] [place] [address] Care Team Providers Name Role Phone Unavailable Primary Care Provider Unavailable Encounter Details Date Type Department Care Team Description 04/07/2010 Results Only [facility] Tanika Cordero MD Laboratory Services - [address] [place] [address] [place] [address] Social History Tobacco Use Types Packs/Day Years Used Date Never Assessed Sex Assigned at Date Recorded Not on file documented as of this encounter Plan of Treatment Not on filedocumented as of this encounter Procedures Procedure Name Priority Date/Time Associated Diagnosis Comme [facility] SURGICAL PATHOLOGY Routine 04/07/2010 0:00 EDT Re sults for this procedure are i n the results section. documented in this encounter Results SURGICAL PATHOLOGY (04/07/2010 0:00 EDT) Pathology Report: SURGICAL PATHOLOGY REPORT ? [facility] Reports generated via Nervogrid interface contain original data; ? LAB however they are lacking the format of the original report. ? Caution should be taken when reading/interpreting unformatted reports. ? Name: ? BRIAN HANSEN ? Accession #: ? [id number] ? : ? 1965 (Age: 44) ??F ? Collec t Date: ? 04/07/2010 ? Location: ? [facility] ? R eceive Date: ? 04/07/2010 ? Provider: TANIKA PATY MD ? Copy to: TANIKA L WEBER N P ? Final Pathologic Diagnosis: ? A. ?Endometrium , biopsy: ? 1. ?Disordered proliferative endometrium ??with early secretory change. ?? See comment. ? B. ?Endocervica l polyp, biopsy: ? 1. ?Endocervica l polyp. ? Comment: ? This case was reviewe d in the intradepartmental consultation conference. ?? (Dr. Ortiz)/cjh ? Document reviewed and electr onically signed by: ? Luly Ortiz, MD ? Report ??Date: 04/11/2010 15 :41 ? By the signature above, the attending physician certifies that he/she has ? personally conducted a gross and/or microscopic examination of the described ? specimens and rendered or co nfirmed the above diagnosis. ? Specimen(s) Received: ? A. ?Endometrial bx ? B. ? Endocervical polyp ? Clinical History: ? Heavy periods, S/P ab lation, HMG 11.4 on iron TID ? Gross Description: ? Received in formalin labelled Jade, Brian and endometrial bx is a ?? 2.0 x 1.0 x 0.4 cm aggregate of fernandez-brown soft tissue admixed with a minimal ? amount of clear mucus materi al. ??The specimen is entirely submitted as (A) ? following filtration. ? Received in formalin jose d Brian Hansen and endocervical polyp is a fernandez to brown, variegated, polypo id tissue measuring 0.5 x 0.4 x 0.2 cm with a ? minimal amount of loosely at tached, brown mucinous material. ??The specimen is ?? entirely submitted as (B). ? ?(Marialuisa Duffy)/[facility] ? End of Report ? Specimen Performing Organization Address City/State/ZIP Code Phon e Number [facility] [address] [place] [address] SERVICES [facility] [address] [place] [address] documented in this encounter Visit Diagnoses Not on filedocumented in this encounter
--- OUTSIDE RECORDS SUMMARY | 2022-07-27 10:19 | XMS_ITS | Encounter Summary ---
:1965 Author Organization [facility] Address [address] [place] [address] Care Team Providers Name Role Phone DawoodTanika Jessica PRECIPITATOR Primary Care Provider Encounter Details Date Type Department Care Team Description 12/20/2007 Results Only [facility] - Luisa Cordero MD Maple conversion [address] [place] [address] [place] [address] Social History Tobacco Use Types Packs/Day Years Used Date Never Assessed Sex Assigned at Date Recorded Not on file documented as of this encounter Plan of Treatment Not on filedocumented as of this encounter Procedures Procedure Name Priority Date/Time Associated Diagnosis Comme nts SURGICAL PATHOLOGY Routine 12/20/2007 0:00 EST Re sults for this procedure are i n the results section. documented in this encounter Results SURGICAL PATHOLOGY (12/20/2007 0:00 EST) Pathology Report: SURGICAL PATHOLOGY REPORT [facility] Reports generated via electronic interface contain ameya ginal data; LAB however they are lacking the format of the original re port. Caution should be taken when reading/interpreting unfo rmatted reports. Name: ? MARTHA HANSEN ? Accession #: ? [id number] ? : ? 1965 (Age: 42) ??F ? Collect Date: ? 12/20/2007 ? Location: ? [facility] ? Receive Date: ? 008 ? Provider: TANIKA CORDERO MD Copy to: TANIKA WEBER PRECIPITATOR ? Final Pathologic Diagnosis: A. ?Tissue submitted as uterine fibroids , resection: 1. ?Benign leiomyomata. ??See comment. B. ?Endometrium, curettage: 1. ?Secretory phase endometrium. ??See co mment. Comment: ? Specimen (A) shows focal squamous metaplasia of endocervical/lower endometrial epithelial linin g was observed. This finding indicates the location of some of the leiomyomas close to the lower endometri um. Director Nursing Service sections were reviewed in [facility] intradepartmental consultation conference. ??(Dr. Andrade)/[facility] Document reviewed and electronically signed by: MODESTA ANDRADE MD Report ??Date: 12/25/2007 08:18 By the signature above, the attending physician certif ies that he/she has personally conducted a gross and/or microscopic examin ation of the described specimens and rendered or confirmed the above diagnosi s. Specimen(s) Received: A. ?Uterine fibroids B. ? Endometrial curettings Clinical History: ? Menometrorrhagia, anemia, on BCP x 1 day, prola psed fibroid Gross Description: ? Received in formalin labelled Jade and uterine fibroids are three nodular portions of white rubbery fibrous tissue measuring 6.0 x 4.7 x 2.8 cm and weigh in aggregate 38 grams. ??Each nodular portion displays an irregular resection margin and an opposing glistening fernandez slightly erythematous aspect. The cut surfaces of each portion are homogenous, fernandez-w hetal and whorled. ??No areas of hemorrhage or softening are susanne ntified. ??A national sales representative section of each portion is submitted as (A1) to (A3). ?? Received in formalin jose d Jade and endometrial curettings is a 4.4 x 3.3 x 1.2 cm aggregate of he morrhagic red-brown soft tissue admixed with clotted blood. ??The specimen is sub mitted in toto as (B1) to (B6). ??(Marialuisa Mak)/[facility] End of Report Specimen Performing Organization Address City/State/ZIP Code Phon e Number [facility] [address] [place] [address] SERVICES [facility] [address] [place] [address] documented in this encounter Visit Diagnoses Not on filedocumented in this encounter Care Teams Urban Forester Relationship Specialty Start Date End Date Tanika Weber, TEREZA PCP - General 04/11/10 02/09/13 [address] [place] [address] documented as of this encounter
--- OUTSIDE RECORDS SUMMARY | 2022-07-27 10:19 | XMS_ITS | Clinical Summary ---
:1965 Author Organization [facility] Address [address] [place] [address] Care Team Providers Name Role Phone Mony Prakash APRN Primary Care Provider [phone] Social History Tobacco Use Types Packs/Day Years Used Date Never Assessed Sex Assigned at Date Recorded Not on file Plan of Treatment Not on file Care Teams Health Education Director Relationship Specialty Start Date End Date Mony Prakash APRN PCP - General 02/10/13 [address] [place], [place] [id number]
--- OUTSIDE RECORDS SUMMARY | 2022-07-27 10:19 | XMS_ITS | Encounter Summary ---
:1965 Author Organization [facility] Address [address] [place] [address] Care Team Providers Name Role Phone Mony Prakash MIA Primary Care Provider [phone] Encounter Details Date Type Department Care Team Description 11/26/2020 Lab Requisition [facility] Outr Resulting Lab, Pathology & Laboratory Provider [facility] [address] [place] [address] Social History Tobacco Use Types Packs/Day Years Used Date Never Assessed Sex Assigned at Date Recorded Not on file documented as of this encounter Plan of Treatment Not on filedocumented as of this encounter Procedures Procedure Name Priority Date/Time Associated Comments Diagnosis DO NOT ORDER Today 11/26/2020 10:03 Results for this STANDALONE - BROAD EST procedure are in COVID TEST the results section. COVID-19 TESTING Routine 11/26/2020 10:03 Results for this EST procedure are i n the results section. documented in this encounter Results DO NOT ORDER STANDALONE - BROAD COVID TEST (11/26/2020 10:03 EST) COVID-19 rt-PCR NEGATIVE Negative [facility] Result Comment: LABORATORY 2019-novel Coronavirus (2019 -nCoV) not detected by the qRT-PCR assay. Consider testing for other respiratory viruses or re-collecting for 2019-nCoV testing. Note: Optimum timing for peak viral levels du ring infections caused by 20 -nCoV have not been determined. Collection of multiple specimens from the same patient may be necessary to detect the virus. Limitations Positive results are indicat katie of active infection with SARS-CoV-2 but do not rule out bacterial infection or co-infection with other viruses. The agent detected may not be the definite cause of diseas e. In addition, detection of viral RNA may not indicate the presence of infectious virus or that SARS-CoV-2 is the causative agent for clinical symptoms. Negative results do not prec lude SARS-CoV-2 infection and should not be used as the sole basis for patient management decisions. Negative results must be combined with clinical observations, patient his tory, and epidemiological in formation. False negative results may also occur if amplification inhibitors are present in the specimen or if inadequate numbers of organisms are present in the specimen. Op timum specimen types and leroy ing for peak viral levels during infections caused by SARS-CoV-2 have not been fully determined. Collection of multiple specimens (types and time points) from the same patient may be necessary to detect the virus. The test was validated for u se with upper respiratory specimens obtained via nasopharyngeal or oropharyngeal swabs in VTM, UTM, M4, M5, M6, saline, and MTM media. The performance of this test has not be en established for other spe cimens. Specimens collected using other FDA recommended Specimen Collection Materials listed in the FDA COVID-19 Diagnostic [employer] communication (January 29, 2020) are pr ocessed with the caveat that they were not all validated for use with this test and the result must be interpreted in this context. Furthermore, a false negative results may occur if a specimen is improperly collected, transported or handled. If the virus mutates in the RT-PCR target region, SARS-CoV-2 may not be detected or may be detected less predictably. Inhibitors or other types of interference may produce a false negative result. An interference study evaluating the effect of common cold medications was not performed. This test is not FDA-cleared but its performance characteristics were established by our CLIA-certified, CAP-accredited, high complexity laboratory in accordance with CLIA regulations, College of [employer] an Pathologists (CAP) guidel alma (Jan 22, 2020), and FDA guidance (Jan 03, 2020). This test is only for use un rhiannon the Food and Drug Administration's Emergency Use Authorization. Specimen Swab - Entire nasopharynx (body structur e) Performing Organization Address City/State/ZIP Code Phon e Number [facility] [place], [place] COVID-19 TESTING (11/26/2020 10:03 EST) COVID-19 rt-PCR NEGATIVE Negative [facility] Result Comment: LABORATORY 2019-novel Coronavirus (2019 -nCoV) not detected by the qRT-PCR assay. Consider testing for other respiratory viruses or re-collecting for 2019-nCoV testing. Note: Optimum timing for peak viral levels du ring infections caused by 20 -nCoV have not been determined. Collection of multiple specimens from the same patient may be necessary to detect the virus. Limitations Positive results are indicat katie of active infection with SARS-CoV-2 but do not rule out bacterial infection or co-infection with other viruses. The agent detected may not be the definite cause of diseas e. In addition, detection of viral RNA may not indicate the presence of infectious virus or that SARS-CoV-2 is the causative agent for clinical symptoms. Negative results do not prec lude SARS-CoV-2 infection and should not be used as the sole basis for patient management decisions. Negative results must be combined with clinical observations, patient his tory, and epidemiological in formation. False negative results may also occur if amplification inhibitors are present in the specimen or if inadequate numbers of organisms are present in the specimen. Op timum specimen types and leroy ing for peak viral levels during infections caused by SARS-CoV-2 have not been fully determined. Collection of multiple specimens (types and time points) from the same patient may be necessary to detect the virus. The test was validated for u with upper respiratory specimens obtained via nasopharyngeal or oropharyngeal swabs in VTM, UTM, M4, M5, M6, saline, and MTM media. The performance of this test has not be en established for other spe cimens. Specimens collected using other FDA recommended Specimen Collection Materials listed in the FDA COVID-19 [employer] communication (January 29, 2020) are pr ocessed with the caveat that they were not all validated for use with this test and the result must be interpreted in this context. Furthermore, a false negative results may occur if a specimen is improperly collected, transported or handled. If the virus mutates in the RT-PCR target region, SARS-CoV-2 may not be detected or may be detected less predictably. Inhibitors or other types of interference may produce a false negative result. An interference study evaluating the effect of common cold medications was not performed. This test is not FDA-cleared but its performance characteristics were established by our CLIA-certified, CAP-accredited, high complexity laboratory in accordance with CLIA regulations, College of [employer] an Pathologists (CAP) guidel alma (Jan 22, 2020), and FDA guidance (Jan 03, 2020). This test is only for use un rhiannon the Food and Drug Administration's Emergency Use Authorization. Performing Lab [facility] LABORATORY SERVICES Specimen Swab Performing Organization Address City/State/ZIP Code Phon e Number [facility] [address] [place] [address] SERVICES [facility] [place], [place] documented in this encounter Visit Diagnoses Not on filedocumented in this encounter Care Teams Beauty School Instructor Relationship Specialty Start Date End Date Mony Prakash APRN PCP - General 02/10/13 [address] [facility] [address] [place], [place] [address] documented as of this encounter
--- OUTSIDE RECORDS SUMMARY | 2022-07-27 10:19 | XMS_ITS | Encounter Summary ---
:1965 Author Organization [facility] Address [address] [place] [address] Care Team Providers Name Role Phone Mony Prakash MIA Primary Care Provider [phone] Encounter Details Date Type Department Care Team Description 06/23/2020 Lab Requisition [facility] Madina Oshea, En counter for other Pathology & CAR FRAMER general examination Laboratory Medicine - [address] [place] [id number] Social History Tobacco Use Types Packs/Day Years Used Date Never Assessed Sex Assigned at Date Recorded Not on file documented as of this encounter Plan of Treatment Not on filedocumented as of this encounter Procedures Procedure Name Priority Date/Time Associated Comments Diagnosis PAP TEST Today 06/22/2020 8:45 Encounter for other Resul ts for this EDT general examination procedur e are in the results section. HUMAN PAPILLOMAVIRUS Today 06/22/2020 8:45 Encounter for oth er Results for this (HPV) DETECTION-HIGH EDT general examination procedure are in RISK TYPES the results section. documented in this encounter Results HUMAN PAPILLOMAVIRUS (HPV) DETECTION-HIGH RISK TYPES (06/22/2020 8:45 EDT) Human Papillomavirus NegativeComment: No Negative [facility] (HPV) Detection-High E6 or E7 mRNA is CENTER LABORATOR Y Types detected from HPV SERVICES types 16,18,31,33,35,39,45 ,51,52,56,58,59,66, and 68 by textile knitter mediated amplification. Specimen Pap Test - Cervix and/or Endocervix Performing Organization Address City/State/ZIP Code Phon e Number [facility] [address] [place] [address] SERVICES PAP TEST (06/22/2020 8:45 EDT) Specimens A. Cervix and/or [facility] Endocervix , ThinPrep CENTER Imaging System with LABORATORY Manual Evaluation SERVICES Specimen Adequacy Satisfactory for Evaluation - transformation zone component present [facility] Scant due to excessive inflammation CENTE R Scant squamous epithelial component, con tamination present, possibly lubricant LABORATORY SERVICES General Negative for [facility] Categorization intraepithelial CENTER lesion or malignancy LABORATORY SERVICES Attestation . [facility] Electronically CENTER signed by DALLIN Rao, SERVICES CT(ASCP)(IAC) o n 07/05/2020 at 14 48 HPV The result for the Human Pap illomavirus (HPV) Detection-High Risk Types is Negative. No E6 or E7 mRNA is detected from HPV types 16,18,31,33,35,39,45,51,52,56,58,59,66, and 68 by textile knitter mediated [facility] amplification.Testing was pe rformed on specimen [id number] and was resulted on 07/05/2020 1446 EDT by MAEGAN, LAB INSTRUMENT RESULTS IN [facility] SERVICES Scanned Images [facility] SERVICES Specimen Pap Test - Cervix and/or Endocervix Performing Organization Address City/State/ZIP Code Phon e Number [facility] [address] [place] [address] SERVICES documented in this encounter Visit Diagnoses Diagnosis Encounter for other general examination documented in this encounter Care Teams Tool Grinder Operator Relationship Specialty Start Date End Date Mony Prakash APRN PCP - General 02/10/[address] [place], [place] [address] documented as of this encounter
--- OUTSIDE RECORDS SUMMARY | 2022-07-27 10:19 | XMS_ITS | Encounter Summary ---
:1965 Author Organization [facility] Address [address] [place] [address] Care Team Providers Name Role Phone Tanika Weber GEOTHERMAL PLANT MANAGER Primary Care Provider Encounter Details Date Type Department Care Team Description 10/17/2005 Results Only [facility] - Debra Ortega sonTanika, GEOTHERMAL PLANT MANAGER conversion [address] [place] [phone] (Wo rk) Social History Tobacco Use Types Packs/Day Years Used Date Never Assessed Sex Assigned at Date Recorded Not on file documented as of this encounter Plan of Treatment Not on filedocumented as of this encounter Procedures Procedure Name Priority Date/Time Associated Diagnosis Comme nts CYTOPATHOLOGY Routine 10/17/2005 0:00 EST Results for this procedure are i n the results section . documented in this encounter Results CYTOPATHOLOGY (10/17/2005 0:00 EST) Pathology Report: CYTOPATHOLOGY REPORT [facility] Reports generated via electronic interface contain ameya ginal data; however they are lacking the format of the original re port. Caution should be taken when reading/interpreting unfo rmatted reports. Name: ? BRIAN HANSEN ? Accession #: ? [id number] : ? 1965 (Age: 40) ??F ?Collect Date: ? 10/05 Location: ? [facility] ? Receive Date : ? 10/19/2005 Provider: ?TANIKA WEBER GEOTHERMAL PLANT MANAGER Copy to: ? Specimen/Source: ? ThinPrep Pap Test, Cervix/Endocervix, processed on [employer] ThinPrep Imaging System, with manual evaluation Last Menstrual Period: ? 10/10/05 ? SPECIMEN ADEQUACY ? Satisfactory for Evaluation - transformation zone component present GENERAL CATEGORIZATION ? Negative for Intraepithelial Lesion or Malignan cy ? Document reviewed and electronically signed by: ? Krysta Sequeira [facility](ASCP) ? Report Date: ??10/23/2005 11:24 End of Report Specimen Performing Organization Address City/State/ZIP Code Phon e Number [facility] [address] [place] [address] SERVICES [facility] [address] [place] [address] documented in this encounter Visit Diagnoses Not on filedocumented in this encounter Care Teams Stock Associate Relationship Specialty Start Date End Date Tanika Weber NP PCP - General 04/11/10 02/09/[address] [place] [id number] documented as of this encounter
--- OUTSIDE RECORDS SUMMARY | 2022-07-27 10:19 | XMS_ITS | Encounter Summary ---
:[address] [facility] Address [address] [place] [address] Care Team Providers Name Role Phone Tanika Weber RECORD LABEL INTERN Primary Care Provider Encounter Details Date Type Department Care Team Description 06/10/[address] [facility] - Debra Ortega sonTanika, RECORD LABEL INTERN conversion [address] [place] [phone] (Wo rk) Social History Tobacco Use Types Packs/Day Years Used Date Never Assessed Sex Assigned at Date Recorded Not on file documented as of this encounter Plan of Treatment Not on filedocumented as of this encounter Procedures Procedure Name Priority Date/Time Associated Diagnosis Comme nts CYTOPATHOLOGY Routine 06/10/2003 0:00 EDT Results for this procedure are i n the results section . documented in this encounter Results CYTOPATHOLOGY (06/10/2003 0:00 EDT) Pathology Report: CYTOPATHOLOGY REPORT [facility] Reports generated via electronic interface contain ameya ginal data; however they are lacking the format of the original re port. Caution should be taken when reading/interpreting unfo rmatted reports. Name: ? BRIAN HANSEN ? Accession #: ? [id number] : ? 1965 (Age: 37) ??F ?Collect Date: ? 0804/2003 Location: ? [facility] ? Receive Date : ? 06/12/2003 Provider: ?TANIKA WEBER RECORD LABEL INTERN Copy to: ? Specimen/Source: ?ThinPrep Pap Test, Cervix/ Endocervix Last Menstrual Period: ? 05/23/03 ? SPECIMEN ADEQUACY ? Satisfactory for Evaluation - transformation zone component present GENERAL CATEGORIZATION ? Negative for Intraepithelial Lesion or Malignan cy ? Document reviewed and electronically signed by: ? TY Jarrell(ASCP)(IAC) ? Report Date: ??06/17/2003 12:02 End of Report Specimen Performing Organization Address City/State/ZIP Code Phon e Number [facility] [address] [place] [address] SERVICES [facility] [address] [place] [address] documented in this encounter Visit Diagnoses Not on filedocumented in this encounter Care Teams Beef Killer Relationship Specialty Start Date End Date Tanika Weber NP PCP - General 04/11/10 02/09/[address] [place] [phone] documented as of this encounter
--- OUTSIDE RECORDS SUMMARY | 2022-07-27 10:19 | XMS_ITS | Encounter Summary ---
:1965 Author Organization [facility] Address [address] [place] [address] Care Team Providers Name Role Phone Vanessa Prakash DATABASE TESTER Primary Care Provider [phone] Encounter Details Date Type Department Care Team Description 12/02/2013 Results Only [facility] Randell Mims , Laboratory Services - [address] [place] [address] [place], [place] [address] [phone] Social History Tobacco Use Types Packs/Day Years Used Date Never Assessed Sex Assigned at Date Recorded Not on file documented as of this encounter Plan of Treatment Not on filedocumented as of this encounter Procedures Procedure Name Priority Date/Time Associated Diagnosis Comme [facility] SURGICAL PATHOLOGY Routine 12/02/2013 21:26 Resul ts for this EST procedure are i n the results section. documented in this encounter Results SURGICAL PATHOLOGY (12/02/2013 21:26 EST) Pathology Report: SURGICAL PATHOLOGY REPORT [facility] Reports generated via electronic interface contain ameya ginal data; LAB however they are lacking the format of the original re port. Caution should be taken when reading/interpreting unfo rmatted reports. Name: ? BRIAN HANSEN ? Accession #: ? [id number] ? : ? 1965 (Age: 48) ??F ? Collect Date: ? 12/02/2013 ? Location: ? [facility] ? Receive Date: ? 014 ? Provider: RANDELL MIMS DO Copy to: VANESSA PRAKASH DATABASE TESTER ? Final Pathologic Diagnosis: A. SKIN, RIGHT SIDE OF NOSE, SHAVE BIOPSY: - ??Seborrheic keratosis. B. COLON, ASCENDING, POLYP, BIOPSY: - ??Sessile serrated adenoma. - ??Deeper levels have been examined. Document reviewed and electronically signed by: SCARLETT DIAZ MD Report ??Date: 12/05/2013 15:41 By the signature above, the attending physician certif ies that he/she has personally conducted a gross and/or microscopic examin ation of the described specimens and rendered or confirmed the above diagnosi s. Specimen(s) Received: A. ??Skin lesion Rt side of nose B. ??Ascending colon polyp Clinical History: Skin lesion right side nose; screening for colonoscopy Gross Description: A. ?Received in formalin labelled with proper p atient identification (initials R, K) and #1 skin lesion Rt side of nose i s a shave biopsy of fernandez-white skin (0.6 x 0.4 cm ). There is a slightly eccentric irregular lucas and cobblestoned, focally lucas-white and nodular pap ule that measures 0.5 x 0.3 x 0.2 cm. ??Submitted intact in A1. B. ?Received in formalin labelled with proper p atient identification (initials R, K) and #2 polyp ascending colon are two pink-fernandez tissues (0.2 x 0.1 x less than 0.1 cm and 0.3 x 0.3 x 0.2 cm). Entire ly submitted in B1. Sirisha Gay 12/03/2013 09:41 AM End of Report Specimen Performing Organization Address City/State/ZIP Code Phon e Number [facility] [address] [place] [address] SERVICES [facility] [address] [place] [address] documented in this encounter Visit Diagnoses Not on filedocumented in this encounter Care Teams Graduate Engineer Relationship Specialty Start Date End Date Vanessa Prakash APRN PCP - General 02/10/13 [address] [place] [address] documented as of this encounter
--- NOTE | 2022-07-27 10:32 | DI.RAD_ITS ---
Exam(s) XR FOOT LT COMPLETE EXAM: XR FOOT LT COMPLETE CLINICAL HISTORY: L posterior heel pain (retrocalc) M76.62 ACHILLES TENDINITIS LEFT LEG. TECHNIQUE: 2D digital imaging was performed. Three views. COMPARISON: No exams were available for comparison FINDINGS: BONES: No acute fracture is present. No bony destructive lesion is seen. Prominent enthesophyte at Ac hilles insertion. Small plantar calcaneal spur. JOINTS: No dislocation present. SOFT TISSUE: Soft tissue swelling adjacent to calcaneal enthesophyte. IMPRESSION: Heel spurs. DATA REPOSITORY: RADIATION DOSE DELIVERED:
== END ==
PROVIDERS: PCP Nurse Practitioner; Visit Provider Podiatrist Foot & Ankle Surgery
DX: M77.32 Calcaneal spur, left foot (principal)
CPT/HCPCS: 73630

== ENCOUNTER 2023-01-17 02:55 | Outpatient (CLI) | payer BC, SELFPAY ==
[2023-01-17 07:22] LABS: HCT 43.3 % (36.0-46.0); HGB 14.6 g/dL (11.2-15.7); MCH 29.2 pg (27.0-33.0); MCHC 33.7 % (32.0-36.0); MCV 87 fL (80-95); MPV 9.2 fL (8.0-11.0); Platelet Count 263 10^3/uL (130-400); RDW 12.4 % (11.7-14.6); RDW-SD 38.9 fL; WBC 6.32 10^3/uL (4.4-10.8)
[2023-01-17 07:46] LABS: Hemoglobin A1C 6.3 % (<5.7)
[2023-01-17 07:54] LABS: ALT 83 U/L (14-59); AST 34 U/L (15-37); Albumin 4.1 g/dL (3.4-5.0); Alkaline Phosphatase 126 U/L (46-116); Anion Gap 9.9 mmol/L (3-11); BUN 21 mg/dL (7-18); Bilirubin, Total 0.5 mg/dL (0.2-1.0); CO2 25.1 mmol/L (21.0-32.0); CREATININE 0.8 mg/dL (0.55-1.02); Calcium 10.5 mg/dL (8.5-10.1); Calculated LDL 122 mg/dL (<100); Chloride 106 mmol/L (98-107); Cholesterol 188 mg/dL (<200); Estimated GFR 84.82 (mL/min/1.73m2); Glucose 166 mg/dL (74-106); HDL Cholesterol 51 mg/dL (40-60); Potassium 4.1 mmol/L (3.5-5.1); Sodium 141 mmol/L (136-145); TSH (W/Ref FT4) 11.79 uIU/mL (0.36-3.74); Total Protein 7.8 g/dL (6.4-8.2); Triglyceride 77 mg/dL (<150)
[2023-01-17 08:14] LABS: FREE T4 1.15 ng/dL (0.76-1.46)
== END 2023-01-17 02:56 | disposition home or self-care (01) ==
PROVIDERS: PCP Nurse Practitioner; Visit Provider Nurse Practitioner
DX: Z00.00 Encounter for general adult medical examination without abnormal findings (principal); E03.9 Hypothyroidism, unspecified; K75.81 Nonalcoholic steatohepatitis (NASH); R73.03 Prediabetes; R79.89 Other specified abnormal findings of blood chemistry; E66.8 Other obesity
CPT/HCPCS: 36415; 80053; 80061; 85027; 83036; 84439; 84443

== ENCOUNTER 2023-06-06 03:39 | Outpatient (CLI) | payer BC, SELFPAY ==
[2023-06-06 07:46] LABS: Hemoglobin A1C 6.7 % (<5.7)
[2023-06-06 08:41] LABS: ALT 126 U/L (14-59); AST 52 U/L (15-37); Alkaline Phosphatase 121 U/L (46-116); Anion Gap 12.4 mmol/L (3-11); BUN 21 mg/dL (7-18); Bilirubin, Total 0.6 mg/dL (0.2-1.0); CO2 24.6 mmol/L (21.0-32.0); CREATININE 0.7 mg/dL (0.55-1.02); Calcium 9.9 mg/dL (8.5-10.1); Calculated LDL 110 mg/dL (<100); Chloride 104 mmol/L (98-107); Cholesterol 176 mg/dL (<200); Estimated GFR 99.57 (mL/min/1.73m2); Glucose 208 mg/dL (74-106); HDL Cholesterol 47 mg/dL (40-60); Potassium 4.2 mmol/L (3.5-5.1); Sodium 141 mmol/L (136-145); TSH 6.17 uIU/mL (0.36-3.74); Total Protein 7.9 g/dL (6.4-8.2); Triglyceride 96 mg/dL (<150)
== END 2023-06-06 03:40 | disposition home or self-care (01) ==
PROVIDERS: PCP Nurse Practitioner; Visit Provider Internal Medicine Endocrinology, Diabetes & Metabolism
DX: E03.9 Hypothyroidism, unspecified (principal); R73.03 Prediabetes; E66.01 Morbid (severe) obesity due to excess calories
CPT/HCPCS: 36415; 80053; 80061; 82533; 83036; 83525; 84443

== ENCOUNTER 2024-04-29 03:17 | Outpatient (CLI) | payer BC, SELFPAY ==
[2024-04-29 07:47] LABS: ALT 83 U/L (14-59); AST 34 U/L (15-37); Albumin 4.2 g/dL (3.4-5.0); Alkaline Phosphatase 128 U/L (46-116); Anion Gap 10.8 mmol/L (3-11); BUN 16 mg/dL (7-18); Bilirubin, Total 0.66 mg/dL (0.2-1.0); CO2 25.2 mmol/L (21.0-32.0); CREATININE 0.8 mg/dL (0.55-1.02); Calcium 10.2 mg/dL (8.5-10.1); Calculated LDL 116 mg/dL (<100); Chloride 103 mmol/L (98-107); Cholesterol 189 mg/dL (<200); Glucose 226 mg/dL (74-106); HDL Cholesterol 54 mg/dL (40-60); Potassium 4.1 mmol/L (3.5-5.1); Sodium 139 mmol/L (136-145); TSH (W/Ref FT4) 4.27 uIU/mL (0.36-3.74); Total Protein 7.9 g/dL (6.4-8.2); Triglyceride 98 mg/dL (<150)
[2024-04-29 08:11] LABS: FREE T4 1.22 ng/dL (0.76-1.46)
== END 2024-04-29 03:18 | disposition home or self-care (01) ==
LOC: LBO 03:17
PROVIDERS: PCP Nurse Practitioner; Visit Provider Nurse Practitioner
DX: E11.9 Type 2 diabetes mellitus without complications (principal)
CPT/HCPCS: 36415; 80053; 80061; 84439; 84443; 84481

== ENCOUNTER 2024-05-12 10:35 | Outpatient (REF) | payer BC, SELFPAY | END 2024-05-12 10:36 | disposition home or self-care (01) | LOC: LBN 10:35 | PROVIDERS: PCP Nurse Practitioner; Visit Provider Nurse Practitioner | DX: R30.0 Dysuria (principal) | CPT/HCPCS: 87077; 87086; 87186 ==

== ENCOUNTER 2025-07-29 01:07 | Outpatient (CLI) | payer BC, SELFPAY ==
[2025-07-29 08:39] LABS: ALT 30 U/L (14-59); AST 18 U/L (15-37); Albumin 4.0 g/dL (3.4-5.0); Alkaline Phosphatase 128 U/L (46-116); Anion Gap 7.4 mmol/L (3-11); BUN 25 mg/dL (7-18); Bilirubin, Total 0.6 mg/dL (0.2-1.0); CO2 27.6 mmol/L (21.0-32.0); Calcium 10.5 mg/dL (8.5-10.1); Calculated LDL 97 mg/dL (<100); Chloride 106 mmol/L (98-107); Cholesterol 160 mg/dL (<200); Estimated GFR 102.06 (mL/min/1.73m2); Glucose 100 mg/dL (74-106); HDL Cholesterol 52 mg/dL (>or=50); Potassium 4.1 mmol/L (3.5-5.1); Sodium 141 mmol/L (136-145); TSH (W/Ref FT4) 0.75 uIU/mL (0.36-3.74); Total Protein 7.6 g/dL (6.4-8.2); Triglyceride 55 mg/dL (<150)
== END 2025-07-29 01:08 | disposition home or self-care (01) ==
LOC: LBO 01:07
PROVIDERS: PCP Nurse Practitioner; Visit Provider Nurse Practitioner Family
DX: E11.9 Type 2 diabetes mellitus without complications (principal); Z13.220 Encounter for screening for lipoid disorders
CPT/HCPCS: 36415; 80053; 80061; 84443

== ENCOUNTER 2025-09-04 16:41 | Outpatient (REF) | payer BC, SELFPAY | END 2025-09-04 16:42 | disposition home or self-care (01) | LOC: LBN 16:41 | PROVIDERS: PCP Nurse Practitioner; Visit Provider Nurse Practitioner Family | DX: Z12.4 Encounter for screening for malignant neoplasm of cervix (principal) | CPT/HCPCS: 88142; 87624 ==

== ENCOUNTER 2025-09-30 02:16 | Outpatient (CLI) | payer BC, SELFPAY ==
[2025-09-30 07:45] LABS: TSH 1.14 uIU/mL (0.55-4.78)
== END 2025-09-30 02:17 | disposition home or self-care (01) ==
PROVIDERS: PCP Nurse Practitioner; Visit Provider Nurse Practitioner Family
DX: E03.9 Hypothyroidism, unspecified (principal)
CPT/HCPCS: 36415; 84439; 84443

== ENCOUNTER 2025-10-05 19:34 | Outpatient (CLI) | payer BC, SELFPAY ==
[2025-10-05 17:41] LABS: ALT 25 U/L (10-49); AST 21 U/L (<34); Albumin 4.4 g/dL (3.2-5.0); Alkaline Phosphatase 116 U/L (46-116); Anion Gap 7.3 mmol/L (3-11); BUN 23 mg/dL (9-23); Bilirubin, Total 0.30 mg/dL (0.2-1.2); CO2 27.7 mmol/L (20.0-31.0); Calcium 10.4 mg/dL (8.3-10.6); Chloride 107 mmol/L (98-107); Glucose 86 mg/dL (74-106); Potassium 4.1 mmol/L (3.5-5.1); Sodium 142 mmol/L (136-145); Total Protein 7.3 g/dL (5.7-8.2)
[2025-10-05 17:44] LABS: Vitamin D 25 Total 27 ng/mL (30-100)
== END 2025-10-05 19:35 | disposition home or self-care (01) ==
LOC: LBO 19:35
PROVIDERS: PCP Nurse Practitioner; Visit Provider Nurse Practitioner Family
DX: C50.112 Malignant neoplasm of central portion of left female breast (principal); Z17.0 Estrogen receptor positive status [ER+]
CPT/HCPCS: 36415; 80053; 82306